=== PATIENT | female | born 1960 | race Caucasian/White ===

== ENCOUNTER → 2017-06-21 | Outpatient (CLI) | payer BC ==
--- NOTE | 2017-06-21 16:13 | MAMMOGRAPHY REPORT ---
BILATERAL DIGITAL SCREENING MAMMOGRAM TOMOSYNTHESIS WITH CAD: 06/21/2017 CLINICAL HISTORY: Routine screening. Patient has no complaints. TECHNIQUE: Breast tomosynthesis in addition to standard 2D mammography was performed. Current study was also evaluated with a Computer Aided Detection (CAD) system. COMPARISON: Comparison is made to exams dated: 06/17/2016 mammogram, 05/07/2015 mammogram, 03/14/2014 ma mmogram, 01/17/2013 mammogram, and 12/25/2011 mammogram - [facility]. BREAST COMPOSITION: There are scattered areas of fibroglandular density in both breasts. FINDINGS: No suspicious masses, calcifications, or areas of architectural distortion are noted in ei ther breast. There has been no significant interval change compared to prior exams. IMPRESSION: ACR BI-RADS CATEGORY 1: NEGATIVE There is no mammographic evidence of malignancy. A 1 year screening mammogram is recommended. The pa tient will receive written notification of the results. Approximately 10% of breast cancers are not detected with mammography. A negative mammographic report should not delay biopsy if a clinically suggestive mass is present. She Fraga M.D. /:06/21/2017 14:36:14 Band Master: Mouna CAMPBELL)(Radha), [facility] letter sent: Normal 1/2 BI-RADS Code: ACR BI-RADS Category 1: Negative
== END | disposition home or self-care (01) ==
LOC: C.MAMM 09:21
PROVIDERS: ATTEND Family Medicine
DX: Z12.31 Encounter for screening mammogram for malignant neoplasm of breast (principal)

== ENCOUNTER → 2018-07-13 | Outpatient (CLI) | payer OTHER ==
--- NOTE | 2018-07-14 15:44 | MAMMOGRAPHY REPORT ---
BILATERAL DIGITAL SCREENING MAMMOGRAM TOMOSYNTHESIS WITH CAD: 07/13/2018 CLINICAL HISTORY: Routine screening. TECHNIQUE: The study was acquired using full field digital technology and interpreted from soft copy. Breast tomosynthesis in addition to standard 2D mammography was performed. Current study was also ev aluated with a Computer Aided Detection (CAD) system. COMPARISON: Comparison is made to exams dated: 06/21/2017 mammogram, 06/17/2016 mammogram, 05/07/2015 ma mmogram, 03/14/2014 mammogram, 01/17/2013 mammogram, and 12/25/2011 mammogram - [facility]. BREAST COMPOSITION: There are scattered areas of fibroglandular density in both breasts. FINDINGS: No suspicious masses, calcifications, or areas of architectural distortion are noted in either breast . There has been no significant interval change compared to prior exams. IMPRESSION: ACR BI-RADS CATEGORY 1: NEGATIVE There is no mammographic evidence of malignancy. A 1 year screening mammogram is recommended.( 019) The patient will receive written notification of the results. Some breast cancers are not detected with mammography. A negative mammographic report should not silvina y biopsy if a clinically suggestive mass is present. She Fraga M.D. ah/:07/13/2018 15:28:26 Verification Manager: RT Anette(Mere)(M), [facility] letter sent: Normal 1/2 BI-RADS Code: ACR BI-RADS Category 1: Negative
== END | disposition home or self-care (01) ==
LOC: C.MAMM 13:35
PROVIDERS: ATTEND Family Medicine
DX: Z12.31 Encounter for screening mammogram for malignant neoplasm of breast (principal)

== ENCOUNTER 2024-11-25 13:40 | Inpatient (IN) ==
--- NOTE | 2024-11-25 14:05 | Emergency Department Note ---
Impression & Plan CHIN (acute kidney injury), Vomiting, Abdominal pain, Abdominal ascites, Pleural effusion, Urinary tract infection ED Provider Note NAME: ZAY RAMEY AGE: 64 SEX: F : 1960 ARRIVES VIA: Walk-In INFORMANT: Patient, ED PROVIDER(S): Brent Nation DO CHIEF COMPLAINT: Abdominal pain HPI: The patient is a 64-year-old female who has a history of stage IV colon cancer. She was seen in our facility recently for similar complaints. She was transferred to [facility] and had multiple surgeries. She also was found to have obstruction of the kidney because of a pelvic mass. This was not something they were able to intervene on. She still has an ostomy. She is still getting chemotherapy. The patient presented to the emergency department today because of abdominal pain and vomiting. She has had decreased output in her ostomy bag. She is also been struggling with her pain medication. She cannot take the tramadol anymore and was switched to oxycodone. She is unsure if this is working appropriately. ROS: See above HPI for pertinent positives & negatives. A total of 10 systems reviewed and were otherwise negative. PAST MEDICAL HISTORY: See Below PAST SURGICAL HISTORY: See Below FAMILY HISTORY: See Below SOCIAL HISTORY: See Below HOME MEDICATIONS: See Below ALLERGIES: See Below VITALS: See Below PHYSICAL EXAMINATION: GENERAL: The patient is awake and alert. The patient is somewhat anxious. EYES: The conjunctivae are clear. The pupils are round and reactive. EARS, NOSE, MOUTH AND THROAT: The nose is without any evidence of any deformity. NECK: The neck is nontender and supple. RESPIRATORY: Normal respiratory effort is noted there is no evidence of wheezing rhonchi or rales CARDIOVASCULAR: Regular rate and rhythm noted there no murmurs rubs or gallops normal S1 normal S2. GASTROINTESTINAL: The abdomen is distended. There is diffuse tenderness to palpation. The ostomy is noted. There is no material in the bag. Postoperative areas are noted. There is no drainage erythema or dehiscence. MUSCULOSKELETAL/EXTREMITIES: There is no evidence of gross deformity full range of motion is noted in the hips and shoulders. SKIN: There is no obvious evidence of any rash. There are no petechiae, pallor or cyanosis noted. NEUROLOGIC: Patient is awake alert and oriented x3 MEDICAL DECISION MAKING: The patient is a 64-year-old female who presented to the emergency department for an evaluation of abdominal pain nausea and vomiting. The patient has a history of metastatic colon cancer. She was recently at [facility] for a debulking surgery. She was doing well up until recently when she started having severe nausea and vomiting. She has had decreased urine output as well as decreased output in her ostomy. She thought she could be obstructed. Physical exam was consistent with significant pain. I discussed the patient's laboratory and radiographic studies with her. She appears to have an elevation in her creatinine compared to baseline. She was treated with multiple IV fluid boluses. I discussed her condition with the on-call [facility] hospitalist. They have agreed to evaluate the patient in the emergency department for further management and disposition. Triage Nursing notes reviewed. Prior medical records reviewed Vital Signs: reviewed and remarkable for no significant abnormalities Differential diagnosis: Etiologies such as appendicitis, diverticulitis, obstruction, inflammatory bowel disease, renal colic, PUD, biliary pathology, pancreatitis, mesenteric ischemia, aortic pathology, infections, genitourinary, UTI, perforated viscus, as well as others were entertained. ER treatment provided: See below Diagnostics interpreted by me: ECG: EKG was obtained in the emergency department. My interpretation is normal sinus rhythm at 94 bpm. There is no ectopy. There is no acute ST segment abnormalities noted. This was compared to a tracing from November 05, 2024. No changes were noted. Cardiac Monitoring: An order was placed for continuous cardiac monitoring. The monitor shows a rate of 94 bpm with sinus rhythm. Laboratory studies: As stated above and show below. Imaging studies: See below. Radiographic imaging was reviewed by myself Consultation(s): Dr. Wilson was notified about the patient. Past Med/Surg History Problem List (Updated 11/25/24 @ 18:05 by Brent Nation DO) Urinary tract infection (Acute) Pleural effusion (Acute) Abdominal ascites (Acute) Abdominal pain (Acute) Vomiting (Acute) CHIN (acute kidney injury) (Acute) Encounter for pre-operative examination Medical History Metastatic colon cancer to liver Colostomy in place Cataracts, bilateral History of kidney stones Diverticulosis DM type 2 (diabetes mellitus, type 2) HLD (hyperlipidemia) HTN (hypertension) Chronic deep vein thrombosis (DVT) "Small" LLE clot on recent doppler by PCP per patient, advised nothing further needed per patient Atrial fibrillation Single episode 08/2023 while hospitalized at [facility] [place] for bowel resection > prescribed Eliquis/Coreg Surgical History Port-A-Cath in place (11/05/23) Insertion of Access Port with Fluoroscopy(Left) - Lynn Licona DO History of lithotripsy x2 H/O colonoscopy Hx of hysterectomy (2020) History of colon surgery Del Rosario's procedure with right salpingo-oophorectomy along with biopsies of the peritoneum,mesentery and liver per Dr. Rubio's note Family History Grandmother Colorectal cancer Father Hypertension Diabetes Social History Smoking Status: Former smoker Tobacco Type: Cigarettes Second Hand Exposure: No; Do You Dip or Chew Tobacco: No; Hx Alcohol Use: No Hx Substance Use: No Preferred Language: Barbadian Communication Ability: Effective [employer] Required: No Beliefs That Will Affect Care: None marital status: Current Living Situation: Spouse current occupational status: retired How many Children do You have: 1 Feels Safe at Home: Yes during the past year weight has: decreased > 10 lbs Assistive Devices: Denture - Upper, Denture - Lower and Glasses Allergies Allergies Allergy/AdvReac Type Severity Reaction Status Date / Time Iodinated Contrast Media Allergy Hives Verified 11/25/24 17:28 Penicillins Allergy Unknown Verified 11/25/24 17:28 povidone-iodine Allergy Hives Verified 11/25/24 17:28 [From Betadine] Home Meds Home Medications Medication Instructions Recorded Confirmed glimepiride 4 mg tablet 4 mg PO QAM 08/30/23 11/25/24 lisinopril 40 mg tablet 40 mg PO DAILY 08/30/23 11/25/24 metformin 1,000 mg tablet 1,000 mg PO BID 08/30/23 11/25/24 simvastatin 40 mg tablet 40 mg PO QPM 08/30/23 11/25/24 carvedilol 6.25 mg tablet 6.25 mg PO BID 11/02/23 11/25/24 apixaban 2.5 mg tablet (Eliquis) 2.5 mg PO BID 11/25/24 11/25/24 ondansetron HCl 8 mg tablet 8 mg PO DAILY PRN Nausea 11/25/24 11/25/24 oxycodone 5 mg tablet 0 mg PO DIRECTED PRN Pain 11/25/24 11/25/24 pioglitazone 30 mg tablet 30 mg PO DAILY 11/25/24 11/25/24 Results & Data (ED) Vital Signs Vital Signs - 24 hr 11/25/24 13:45 11/25/24 13:50 11/25/24 14:48 Temperature 35.4 C L Temperature Source Temporal Artery Scan Pulse Rate 98 H 97 H 102 H Pulse Rate [Right Finger] Pulse Rhythm Regular Regular Pulse Strength Normal Respiratory Rate 20 22 Respiratory Effort / Characteristics Non-Labored Spontaneous Respiratory Depth Normal Respiratory Pattern Regular Blood Pressure 133/79 Blood Pressure [Right Arm] Blood Pressure Mean 97 Blood Pressure Mean [Right Arm] Blood Pressure Position Sitting Pulse Oximetry 98 98 Oxygen Delivery Method Room Air Room Air Sepsis Recent Fever Within 48 Hours No Sepsis New/Unexplained Change in Mental Status No Sepsis Action Taken by Nursing No Action Required 11/25/24 15:08 11/25/24 15:34 11/25/24 16:32 Temperature Temperature Source Pulse Rate Pulse Rate [Right Finger] 92 H 88 94 H Pulse Rhythm Pulse Strength Respiratory Rate 24 16 14 Respiratory Effort / Characteristics Non-Labored Spontaneous Non-Labored Spontaneous Non-Labored Spontaneous Respiratory Depth Normal Normal Normal Respiratory Pattern Regular Regular Regular Blood Pressure Blood Pressure [Right Arm] 120/72 118/62 134/64 Blood Pressure Mean Blood Pressure Mean [Right Arm] 88 80 87 Blood Pressure Position Pulse Oximetry 98 98 98 Oxygen Delivery Method Room Air Room Air Room Air Sepsis Recent Fever Within 48 Hours Sepsis New/Unexplained Change in Mental Status Sepsis Action Taken by Nursing 11/25/24 17:19 Temperature Temperature Source Pulse Rate Pulse Rate [Right Finger] 94 H Pulse Rhythm Pulse Strength Respiratory Rate 16 Respiratory Effort / Characteristics Non-Labored Spontaneous Respiratory Depth Normal Respiratory Pattern Regular Blood Pressure Blood Pressure [Right Arm] 119/69 Blood Pressure Mean Blood Pressure Mean [Right Arm] 85 Blood Pressure Position Pulse Oximetry 97 Oxygen Delivery Method Room Air Sepsis Recent Fever Within 48 Hours Sepsis New/Unexplained Change in Mental Status Sepsis Action Taken by Prison Medications Current Medication List: was personally reviewed by me Laboratory Data Attestation: I reviewed the patient's lab results. 11/25/24 14:20 11/25/24 14:20 Lab Results 11/25/24 11/25/24 Range/Units 14:20 17:28 WBC 15.14 H (4.8-10.8) K/ul RBC 3.08 L (4.20-5.40) M/uL Hgb 8.8 L (12.0-16.0) g/dl Hct 27.0 L (37.0-47.0) % MCV 87.7 (80.0-100.0) fL MCH 28.6 (25.0-34.0) pg MCHC 32.6 (32.0-36.0) g/dL RDW Std Deviation 45.1 (36.4-46.3) fL RDW Coeff of Jennifer 14.1 (11.5-14.5) % Plt Count 349 (130-400) K/uL MPV 9.6 (9.4-12.4) fL Immature Gran % (Auto) 1.0 % Neut % (Auto) 87.2 % Lymph % (Auto) 6.7 % [place] % (Auto) 4.8 % Eos % (Auto) 0.1 % Baso % (Auto) 0.2 % Neut # (Auto) 13.20 H (1.40-6.50) K/uL Lymph # (Auto) 1.02 L (1.20-3.40) K/uL [place] # (Auto) 0.72 H (0.11-0.59) K/uL Eos # (Auto) 0.02 (0.00-0.50) K/uL Baso # (Auto) 0.03 (0.00-0.20) K/uL Immature Gran # (Auto) 0.15 (0.01-0.20) K/uL PT 13.2 H (9.0-12.0) Seconds INR 1.2 H (0.9-1.1) APTT 30 (21-31) Seconds PTT Ratio 1.1 Sodium 131 L (136-145) mmol/L Potassium 5.4 H (3.5-5.1) mmol/L Chloride 97 L (98-107) mmol/L Carbon Dioxide 18 L (21-32) mmol/L Anion Gap 16 H (3-11) BUN 53 H (6-23) mg/dl Creatinine 2.51 H (0.6-1.2) mg/dl Est Cr Clr Drug Dosing 21.1 ml/min eGFR 20.59 BUN/Creatinine Ratio 21.1 H (10-20) Glucose 193 H (70-99(Fasting)) mg/dl Calcium 9.2 (8.6-10.3) mg/dl Total Bilirubin 0.3 (0.2-1.0) mg/dl AST 18 (13-39) U/L ALT 8 (7-52) U/L Alkaline Phosphatase 73 (34-104) U/L Troponin I High Sens 5.8 (0-14) pg/ml Total Protein 6.8 (6.0-8.3) gm/dl Albumin 3.2 L (3.4-5.0) gm/dl Globulin 3.6 (2.5-4.0) gm/dl Albumin/Globulin Ratio 0.9 (0.9-2) Lipase 18 (11-82) U/L Urine Color Yellow Urine Appearance Cloudy A (Clear) Urine pH 5.0 (4.5-7.5) Ur Specific Frederick 1.023 (1.000-1.030) Urine Protein 1+ H (Negative) Urine Glucose (UA) Negative (Negative) Urine Ketones 1+ H (Negative) Urine Blood Negative (Negative) Urine Nitrite Negative (Negative) Urine Bilirubin Negative (Negative) Urine Urobilinogen Negative (Negative) Ur Leukocyte Esterase 2+ H (Negative) Urine WBC (Auto) >50 H (0-5) /hpf Urine RBC (Auto) 0-2 (0-2) /hpf U Hyaline Cast (Auto) >20 H (0-2) /lpf U Epithel Cells (Auto) 11-20 H (0-2) /hpf Urine Bacteria (Auto) 4+ H (None Seen) Ur Renal Epithelial Cell Present A (None Presnt) /lpf Administered Medications Discontinued Medications Diphenhydramine HCl (Diphenhydramine 50 Mg/Ml Vial) 50 mg IV NOW STA Stop: 11/25/24 14:03 Last Admin: 11/25/24 14:27 Dose: 50 mg Documented By: SRL Sodium Chloride (Nss) 1,000 mls @ 999 mls/hr IV .Q1H1M ONE Stop: 11/25/24 14:50 Last Infusion: 11/25/24 15:30 Dose: Infused Documented By: NRRashel Admin: 11/25/24 14:27 Dose: 999 mls/hr Documented By: PEGGY Sodium Chloride (Nss) 1,000 mls @ 999 mls/hr IV .Q1H1M ONE Stop: 11/25/24 16:00 Last Infusion: 11/25/24 16:47 Dose: Infused Documented By: Admin: 11/25/24 15:35 Dose: 999 mls/hr Documented By: NRB Methylprednisolone (Methylprednisolone 125 Mg/2 Ml Vial) 40 mg IV NOW STA Stop: 11/25/24 14:03 Last Admin: 11/25/24 14:27 Dose: 40 mg Documented By: SRL Ondansetron HCl (Ondansetron Inj 2 Mg/Ml 2 Ml Vial) 4 mg IV NOW STA Stop: 11/25/24 13:51 Last Admin: 11/25/24 14:27 Dose: 4 mg Documented By: PEGGY Imaging Data Attestation: I personally reviewed and interpreted this imaging study as follows: My Impression: View chest x-ray was obtained in the emergency department. My interpretation is left-sided pleural effusion, final report below. CT of the abdomen and pelvis was obtained. My interpretation is no free air or signs of definite bowel obstruction, there was ascites noted, final report below. Radiologist's Impression: Chest X-Ray 11/25/24 13:50 EXAM: Chest x-ray one-view portable CLINICAL HISTORY: Vomiting PRIORS: Chest CT 11/14/2024 TECHNIQUE: Upright frontal view chest portable FINDINGS: A left Mediport catheter is present. No pneumothorax. A moderate left pleural effusion is present, appearing in the interval. Heart size is normal. Trachea is patent. Osseous structures demonstrate no acute abnormality. No radiopaque foreign body. IMPRESSION: Moderate left pleural effusion, appearing in the interval. Electronically signed by [place]ia Pardo 11-25-2024 3:24 PM Abdomen/Pelvis CT 11/25/24 15:00 EXAMINATION: Abdomen and pelvis CT without CLINICAL HISTORY: None supplied PRIORS: 11/14/2024 TECHNIQUE: Contiguous axial images were obtained through the abdomen and pelvis without the use of intravenous contrast. Sagittal and coronal reformations are supplied. FINDINGS: Small left pleural effusion is present, appearing in the interval. Evaluation of solid organs is limited without the use of intravenous contrast. A large amount of ascites is present throughout the abdomen, progressed in the interval. The gallbladder is mildly distended, appearing in the interval. Small appearance of the liver noted. The stomach is under distended and contains fluid. The spleen, pancreas and adrenals are morphologically unremarkable. Oral contrast present in the ascending and transverse colon Without dilatation. A left ostomy is noted, unchanged. No dilated loops of bowel. Heterogeneous soft tissue attenuation throughout the mesentery of the anterior abdominal wall, likely metastatic disease/omental caking, unchanged allowing for differences in technique. A pelvic mass is present or uterus, image 69, series 2. Urinary bladder distends normally. Pelvic adenopathy or soft tissue nodules present adjacent to this, unchanged. Surgical clips in the right Brenden pelvis with adjacent soft tissue, unchanged. Anastomotic suture involving the small bowel present in the mid anterior abdomen, unchanged. Moderate right hydronephrosis and hydroureter is present, unchanged with likely obstructed right distal ureter. Retroperitoneal adenopathy present, unchanged. Advanced atherosclerotic disease of the aorta noted. Left kidney unremarkable. In bone windows, heterogeneous appearance of the osseous structures without a high-grade compression fracture. Moderate facet hypertrophic changes at L5-S1. IMPRESSION: 1. CT features favoring metastatic disease within the abdomen and pelvis with unchanged omental implants and adenopathy. 2. Increased volume of ascites on today's examination. 3. Right hydronephrosis and hydroureter, unchanged, favoring distal obstruction. 4. Postsurgical change of loops of bowel with no dilated loops of bowel on the current examination. 5. Distended gallbladder, appearing in the interval. 6. Small right and moderate left pleural effusions, appearing in the interval. ACT 112: Positive. There are findings on this examination that require communication between the performing entity and the patient following Patient Test Result Information Act ([place] ACT 112) guidelines. Electronically signed by [place]ia Pardo 11-25-2024 4:28 PM Discharge Plan Visit Data Chief Complaint: Illness Stated Complaint: STG 4 COLON CANCER, VOMITING, NAUSEA, CONSTIPATION ED Provider: Brent Nation Discharge Problem: CHIN (acute kidney injury), Vomiting, Abdominal pain, Abdominal ascites, Pleural effusion, Urinary tract infection Patient Disposition: Being Evaluated by Hospitalist Forms Stand Alone Forms: My [facility] Prescriptions Prescriptions: No Action carvedilol 6.25 mg tablet 6.25 mg PO BID Rx Instructions: must administer with a meal/food simvastatin 40 mg tablet 40 mg PO QPM metformin 1,000 mg Tablet 1,000 mg PO BID glimepiride 4 mg Tablet 4 mg PO QAM Rx Instructions: administer with breakfast lisinopril 40 mg Tablet 40 mg PO DAILY ondansetron HCl 8 mg tablet 8 mg PO DAILY PRN (Reason: Nausea) pioglitazone 30 mg tablet 30 mg PO DAILY Eliquis 2.5 mg tablet 2.5 mg PO BID oxycodone 5 mg tablet 0 mg PO DIRECTED PRN (Reason: Pain) Rx Instructions: pt states she feels like the oxycodone is part of her feeling ill. She used to take tramadol with a Tylenol until [facility] prescribed oxy. Referrals Referrals: Jese William [Primary Care Provider] - Discharge Problem: Vomiting Qualifiers: Vomiting type: unspecified Nausea presence: with nausea Qualified Code(s): R 11.2 - Nausea with vomiting, unspecified Abdominal pain Qualifiers: Abdominal location: generalized Qualified Code(s): R10.84 - Generalized abdominal pain Abdominal ascites Qualifiers: Ascites type: malignant Qualified Code(s): R18.0 - Malignant ascites Urinary tract infection Qualifiers: Urinary tract infection type: site unspecified Hematuria presence: without hematuria Qualified Code(s): N39.0 - Urinary tract infection, site not specified
[2024-11-25] MEDS: SODIUM CHLORIDE 0.9% 1,000 ML IV ONE ×2 (14:27→15:35)
[2024-11-25] MEDS: diphenhydrAMINE 50 MG/ML VIAL IV STA (14:27)
[2024-11-25] MEDS: methylPREDNISolone 125 MG/2 ML VIAL IV STA (14:27)
[2024-11-25] MEDS: ONDANSETRON INJ 2 MG/ML 2 ML VIAL IV STA (14:27)
[2024-11-25 14:40] LABS: Basophils # (auto) 0.03 K/uL (0.00-0.20); Basophils % (auto) 0.2 %; Eosinophils # (auto) 0.02 K/uL (0.00-0.50); Eosinophils % (auto) 0.1 %; Hemoglobin 8.8 g/dl (12.0-16.0); Immature Granulocytes # (auto) 0.15 K/uL (0.01-0.20); Lymphocytes # (auto) 1.02 K/uL (1.20-3.40); Lymphocytes % (auto) 6.7 %; Mean Corpuscular Hemoglobin 28.6 pg (25.0-34.0); Mean Corpuscular Hgb Conc 32.6 g/dL (32.0-36.0); Mean Corpuscular Volume 87.7 fL (80.0-100.0); Mean Platelet Volume 9.6 fL (9.4-12.4); Monocytes # (auto) 0.72 K/uL (0.11-0.59); Monocytes % (auto) 4.8 %; Neutrophils % (auto) 87.2 %; Platelet Count 349 K/uL (130-400); RDW Coefficient of Variation 14.1 % (11.5-14.5); RDW Standard Deviation 45.1 fL (36.4-46.3); Red Blood Count 3.08 M/uL (4.20-5.40); White Blood Count 15.14 K/ul (4.8-10.8)
[2024-11-25 14:52] LABS: Albumin Globulin Ratio 0.9 (0.9-2); Albumin Level 3.2 gm/dl (3.4-5.0); BUN Creatinine Ratio 21.1 (10-20); Bilirubin,Total 0.3 mg/dl (0.2-1.0); Calcium 9.2 mg/dl (8.6-10.3); Creatinine Clr Calc Pharmacy 21.1 ml/min; Globulin 3.6 gm/dl (2.5-4.0); Potassium 5.4 mmol/L (3.5-5.1); Total Protein 6.8 gm/dl (6.0-8.3)
[2024-11-25 14:57] LABS: Troponin I High Sensitivity 5.8 pg/ml (0-14)
[2024-11-25 15:09] LABS: INR 1.2 (0.9-1.1); Partial Thromboplastin Ratio 1.1; Partial Thromboplastin Time 30 Seconds (21-31); Prothrombin Time 13.2 Seconds (9.0-12.0)
--- NOTE | 2024-11-25 15:24 | XRay Report ---
EXAM: Chest x-ray one-view portable CLINICAL HISTORY: Vomiting PRIORS: Chest CT 11/14/2024 TECHNIQUE: Upright frontal view chest portable FINDINGS: A left Mediport catheter is present. No pneumothorax. A moderate left pleural effusion is present, appearing in the interval. Heart size is normal. Trachea is patent. Osseous structures demonstrate no acute abnormality. No radiopaque foreign body. IMPRESSION: Moderate left pleural effusion, appearing in the interval. Electronically signed by Albania Pardo 11-25-2024 3:24 PM
--- NOTE | 2024-11-25 16:28 | CT Scan Report ---
EXAMINATION: Abdomen and pelvis CT without CLINICAL HISTORY: None supplied PRIORS: 11/14/2024 TECHNIQUE: Contiguous axial images were obtained through the abdomen and pelvis without the use of intravenous contrast. Sagittal and coronal reformations are supplied. FINDINGS: Small left pleural effusion is present, appearing in the interval. Evaluation of solid organs is limited without the use of intravenous contrast. A large amount of ascites is present throughout the abdomen, progressed in the interval. The gallbladder is mildly distended, appearing in the interval. Small appearance of the liver noted. The stomach is under distended and contains fluid. The spleen, pancreas and adrenals are morphologically unremarkable. Oral contrast present in the ascending and transverse colon Without dilatation. A left ostomy is noted, unchanged. No dilated loops of bowel. Heterogeneous soft tissue attenuation throughout the mesentery of the anterior abdominal wall, likely metastatic disease/omental caking, unchanged allowing for differences in technique. A pelvic mass is present or uterus, image 69, series 2. Urinary bladder distends normally. Pelvic adenopathy or soft tissue nodules present adjacent to this, unchanged. Surgical clips in the right Brenden pelvis with adjacent soft tissue, unchanged. Anastomotic suture involving the small bowel present in the mid anterior abdomen, unchanged. Moderate right hydronephrosis and hydroureter is present, unchanged with likely obstructed right distal ureter. Retroperitoneal adenopathy present, unchanged. Advanced atherosclerotic disease of the aorta noted. Left kidney unremarkable. In bone windows, heterogeneous appearance of the osseous structures without a high-grade compression fracture. Moderate facet hypertrophic changes at L5-S1. IMPRESSION: 1. CT features favoring metastatic disease within the abdomen and pelvis with unchanged omental implants and adenopathy. 2. Increased volume of ascites on today's examination. 3. Right hydronephrosis and hydroureter, unchanged, favoring distal obstruction. 4. Postsurgical change of loops of bowel with no dilated loops of bowel on the current examination. 5. Distended gallbladder, appearing in the interval. 6. Small right and moderate left pleural effusions, appearing in the interval. ACT 112: Positive. There are findings on this examination that require communication between the performing entity and the patient following Patient Test Result Information Act ([place] ACT 112) guidelines. Electronically signed by Albania Pardo 11-25-2024 4:28 PM
--- NOTE | 2024-11-25 16:51 | Electrocardiogram Report ---
Test Reason : Blood Pressure : */* mmHG Vent. Rate : 94 BPM Atrial Rate : 94 BPM P-R Int : 152 ms QRS Dur : 76 ms QT Int : 330 ms P-R-T Axes : 38 -11 26 degrees QTcB Int : 412 ms Normal sinus rhythm Possible Anterior infarct , age undetermined Abnormal ECG When compared with ECG of 05-Nov-2023 07:49, T wave amplitude has decreased in Anterolateral leads Poor R wave progression, consider anterior [place] vs. lead placement vs. LVH now present Confirmed by Sonya Campbell ([id number]) on 11/25/2024 4:51:00 PM Referred By: Confirmed By: Sonya Campbell
[2024-11-25 17:45] LABS: Appearance Urine Cloudy (Clear); Bacteria Urine Automated 4+ (None Seen); Bilirubin Urine Negative (Negative); Blood Urine Negative (Negative); Cast Urine Automated >20 /lpf (0-2); Color Urine Yellow; Glucose Urine UA Negative (Negative); Ketones Urine 1+ (Negative); Leukocyte Esterase Urine 2+ (Negative); Nitrite Urine Negative (Negative); Protein Urine 1+ (Negative); RBC Urine Automated 0-2 /hpf (0-2); Renal Epithelial Cells Urine Present /lpf (None Presnt); Specific Gravity Urine 1.023 (1.000-1.030); Urobilinogen Urine Negative (Negative); WBC Urine Automated >50 /hpf (0-5)
--- NOTE | 2024-11-25 18:04 | History & Physical Report ---
Date of Service November 25, 2024 Assessment & Plan (1) Abdominal pain: (2) CHIN (acute kidney injury): (3) Urinary tract infection: (4) Abdominal ascites: (5) Colon cancer metastasized to multiple sites: Plan This patient is a 64-year-old female with a history of metastatic stage IV colon cancer s/p colectomy and colostomy and 6 months of chemotherapy earlier this year, DM 2, HTN, HL, kidney stones, DVT on Eliquis, lone atrial fibrillation who presents to the ER with 2 weeks of progressively worsening abdominal pain, nausea/vomiting, and decreased output in her colostomy bag and urine output. Found to have increased amount of ascites, carcinomatosis and omental caking of the anterior abdominal wall, pelvic mass with right hydronephrosis and hydroureter, development of small pleural effusions, and CHIN with UTI. #Abdominal pain/N/V/metastatic colon cancer Abdominal pain likely secondary to carcinomatosis and worsening likely malignant ascites. This has been ongoing for 2 months since her laparotomy the end of August at [facility] for aborted reversal of colostomy after pelvic mass was found. She has developed omental caking and carcinomatosis as well as mediastinal lymphadenopathy, ascites, and pleural effusions on CT scan since that time and is about to start a different type of chemotherapy next week. The N/V is almost certainly secondary to a side effect of oxycodone. She has no evidence of bowel obstruction on her CT scan -Admit to medical/surgical floor for pain control, IV fluid hydration, and slow advancement of diet -Discontinue oxycodone which is causing N/V and resume previous tramadol which worked well for her and did not cause side effects. Will also give acetaminophen as needed for pain -Start Protonix and Maalox as needed for likely esophagitis from excessive vomiting -Okay to start clear liquids diet now and advance as tolerated -Consult her oncologist as she had a lot of questions about her prognosis as she was unaware of the findings of the recent CT abdomen/pelvis until now -Could consider paracentesis but her abdomen does not seem excessively distended and would need to hold her Eliquis to do so for at least several days-defer to oncology if he would like this done for further staging purposes -Also consider palliative medicine consultation for symptom and pain management in the setting of metastatic colon cancer #CHIN/hyperkalemia/anion gap metabolic acidosis Creatinine is up to 2.51 from baseline of 0.6 from 04/2024. This is almost certainly secondary to prerenal/dehydration from 2 weeks of nausea/vomiting, but also some aspect likely secondary to blockage of right ureter and ongoing right hydronephrosis. UA is consistent with likely urinary tract infection. She also takes lisinopril at home. Potassium is mildly elevated at 5.4 -Repeat BMP this evening and then again in the morning to ensure potassium levels are improving after receiving IV fluid hydration -Continue IVF's at 125 mL/hour of normal saline for 24 hours -Starting insulin which will also help reduce potassium level -Doubtful that urology would do anything interventional for the right sided hydronephrosis but could consider urology consultation -Hold home lisinopril, metformin #UTI UA abnormal consistent with UTI and she has complained of dysuria. With leukocytosis of 15K which could be from UTI versus stress response to nausea/vomiting -Continue ceftriaxone daily -Follow urine culture final result #Anemia Hemoglobin low at 8.8, MCV 87. Baseline hemoglobin 9.0 from 6 months ago and she did recently have surgery 2 months ago which likely had some blood loss No bleeding from anywhere that she has noticed Most likely anemia of chronic disease, but given poor nutritional status, need to assess for nutritional deficiencies -Check B12, folate, iron panel, ferritin, TSH in the a.m. and replace deficiencies as needed -Follow CBC #DM2 No hemoglobin A1c in our system. She is on multiple oral medications at home -Hold home metformin, glimepiride, pioglitazone -Start NovoLog supplemental insulin here and add Lantus if needed for hyperglycemia #HTN/HL Blood pressures here are controlled -Holding home lisinopril for CHIN -Okay to continue simvastatin DVT prophylaxis-with a history of DVT and has ongoing metastatic cancer-continue home Eliquis 2.5 Mg p.o. twice daily Disposition-admit to medical/surgical unit. Discussed all care with the at the bedside on the day of admission History of Present Illness Chief Complaint: Abdominal pain Primary Care Provider: Jese William This patient is a 64-year-old female with a history of metastatic stage IV colon cancer s/p colectomy and colostomy and 6 months of chemotherapy earlier this year, DM 2, HTN, HL, kidney stones, DVT on Eliquis, lone atrial fibrillation who presents to the ER with 2 weeks of progressively worsening abdominal pain, nausea/vomiting, and decreased output in her colostomy bag and urine output. She was worried that she had a bowel obstruction. She completed chemotherapy in 04/2024 and had a normal PET/CT scan at that time. At the end of August 2024 she had a laparotomy to have a colostomy reversal and unfortunately a pelvic mass was found at that time indicating recurrence of her colon cancer. She has been having worsening mostly right-sided abdominal pain since then which was being helped with Tylenol and tramadol, but her oncologist switched her to oxycodone about 2 weeks ago. Since taking oxycodone, she has been vomiting almost every day. She denies fevers or chills. She is getting progressively weaker as well. Denies blood in her stool or vomit. She is also having dysuria but attributed it to having more concentrated urine. She had a CT of the chest/abdomen/pelvis on 11/14 which unfortunately did show mediastinal lymphadenopathy, pleural effusions, ascites, carcinomatosis of the abdomen, and bilateral pelvic masses with right sided hydronephrosis and hydroureter. The patient and her were not yet aware of the results of the CT scan at the time of admission and I did review them with her. She was set to start a new chemotherapy on 11/28/2024 at the cancer center with Dr. Liz. CT A/P here shows increase in the amount of large ascites since 11/14, unchanged omental caking in the anterior abdominal wall with carcinomatosis, a pelvic mass again with impingement on the distal right ureter with obstruction causing moderate right hydronephrosis and hydroureter, retroperitoneal lymphadenopathy, but no bowel obstruction. Does have distended gallbladder. She was also noted to have bilateral pleural effusions left greater than right but was not in respiratory distress and pulse ox was 97% on room air. She was afebrile as well and denies SOB She also had an CHIN with mild hyperkalemia and an anion gap metabolic acidosis. Her UA was consistent with a UTI. In the ER, she was treated with ceftriaxone for the UTI as well as 2 L of normal saline. She will be admitted for acute kidney injury, N/V secondary to side effect of oxycodone, and abdominal pain likely secondary to metastatic disease and development of large malignant ascites. Allergies Allergy/AdvReac Type Severity Reaction Status Date / Time Iodinated Contrast Media Allergy Hives Verified 11/25/24 17:28 Penicillins Allergy Unknown Verified 11/25/24 17:28 povidone-iodine Allergy Hives Verified 11/25/24 17:28 [From Betadine] Home Medications Medication Instructions Recorded Confirmed Type glimepiride 4 mg tablet 4 mg PO QAM 08/30/23 11/25/24 History lisinopril 40 mg tablet 40 mg PO DAILY 08/30/23 11/25/24 History metformin 1,000 mg tablet 1,000 mg PO BID 08/30/23 11/25/24 History simvastatin 40 mg tablet 40 mg PO QPM 08/30/23 11/25/24 History carvedilol 6.25 mg tablet 6.25 mg PO BID 11/02/23 11/25/24 History apixaban 2.5 mg tablet (Eliquis) 2.5 mg PO BID 11/25/24 11/25/24 History ondansetron HCl 8 mg tablet 8 mg PO DAILY PRN Nausea 11/25/24 11/25/24 History oxycodone 5 mg tablet 0 mg PO DIRECTED PRN Pain 11/25/24 11/25/24 History pioglitazone 30 mg tablet 30 mg PO DAILY 11/25/24 11/25/24 History Past Med/Surg History Problem List Colon cancer metastasized to multiple sites Urinary tract infection (Acute) Pleural effusion (Acute) Abdominal ascites (Acute) Abdominal pain (Acute) Vomiting (Acute) CHIN (acute kidney injury) (Acute) Encounter for pre-operative examination Medical History Metastatic colon cancer to liver Colostomy in place Cataracts, bilateral History of kidney stones Diverticulosis DM type 2 (diabetes mellitus, type 2) HLD (hyperlipidemia) HTN (hypertension) Chronic deep vein thrombosis (DVT) "Small" LLE clot on recent doppler by PCP per patient, advised nothing further needed per patient Atrial fibrillation Single [place] 08[place]2023 [place] [facility] [place] prescribed Eliquis/Coreg Surgical History Port-A-Cath in place (11/05/23) Insertion of Access Port with Fluoroscopy(Left) - Lynn Licona DO History of lithotripsy x2 H/O colonoscopy Hx of hysterectomy (2020) History of colon surgery Del Rosario's procedure with right salpingo-oophorectomy along with biopsies of the peritoneum,mesentery and liver per Dr. Rubio's note Family History Grandmother Colorectal cancer Father Hypertension Diabetes Social History Smoking Status: Former smoker Tobacco Type: Cigarettes Second Hand Exposure: No; Do You Dip or Chew Tobacco: No; Hx Alcohol Use: No Hx Substance Use: No Preferred Language: Yoruba Communication Ability: Effective Trust Operations Assistant Required: No Beliefs That Will Affect Care: None marital status: Current Living Situation: Spouse current occupational status: retired How many Children do You have: 1 Feels Safe at Home: Yes during the past year weight has: decreased > 10 lbs Assistive Devices: Denture - Upper, Denture - Lower and Glasses Review of Systems Review of Systems: All systems reviewed & are unremarkable except as noted in HPI & below She is also complaining of burning in her throat and chest with vomiting acidic rylan kathy like vomit Physical Exam Constitutional: WD/WN, vitals as above Eyes: PERRL, conjunctivae normal, anicteric sclerae ENMT: external ear and nose normal, oropharynx normal (Except dry tongue and mucous membranes) Neck: trachea midline, no thyromegaly Respiratory: normal respiratory effort; no cough Auscultation: lungs clear to auscultation bilaterally and + diminished lung sounds (Bibasilar) Cardiovascular: RRR, no murmur, no edema Chest (Breasts): Chest: normal inspection of chest Gastrointestinal (Abdomen): Inspection/Auscultation: normal bowel sounds; + abdomen abnormal to inspection (Midline laparotomy incision scar well-healed, left-sided colostomy ) Percussion/Palpation: + abdomen tender (Mild in epigastric and right side without guarding or rebound) and abdomen soft; no guarding and abdomen not rigid Musculoskeletal: Extremities: extremities normal to inspection; no cyanosis and no clubbing Skin: no rashes, warm and dry Neurologic: moves all extremities and awake; no focal motor deficits Psychiatric: A+Ox3, euthymic affect Lymphatic: no lymphedema Results & Data Results & Data Vital Signs (Past 12 Hours) Vital Signs Temp Pulse Pulse Resp BP BP Pulse Ox 11/25/24 17:19 94 H 16 119/69 97 11/25/24 16:32 94 H 14 134/64 98 11/25/24 15:34 88 16 118/62 98 11/25/24 15:08 92 H 24 120/72 98 11/25/24 14:48 102 H 11/25/24 13:50 97 H 22 98 11/25/24 13:45 35.4 C L 98 H 20 133/79 98 O2 Del Method 11/25/24 17:19 Room Air 11/25/24 16:32 Room Air 11/25/24 15:34 Room Air 11/25/24 15:08 Room Air 11/25/24 14:48 11/25/24 13:50 Room Air 11/25/24 13:45 Room Air Laboratory Results CBC, coags, BMP, LFTs, lipase, UA reviewed Diagnostic Findings CT A/P, CXR reviewed ECG Additional Comments: ECG on 11/25/2024 at 1405 with normal sinus rhythm, rate 94, no acute ischemic changes Code Status & VTE Plan Code Status DNR/DNI VTE Prophylaxis Plan VTE Prophylaxis will be ordered: Yes PG Care Time/CCT Total # of Minutes Spent Total Time Spent with Patient: Total time spent is greater than 50% in coordination of care (as documented) at patient's floor/unit and/or counseling patient: Coding Level of Care Code 56870 INT INP/OBS CARE 3/75MIN Diagnoses Abdominal pain R10.84 Abdominal location: generalized CHIN (acute kidney injury) N17.9 Urinary tract infection N39.0 Hematuria presence: without hematuria Urinary tract infection type: site unspecified Abdominal ascites R18.0 Ascites type: malignant Colon cancer metastasized to multiple sites C18.9 (1) Abdominal pain Abdominal location: generalized Qualified Code(s): R10.84 - Generalized abdominal pain (3) Urinary tract infection Hematuria presence: without hematuria Urinary tract infection type: site unspecified Qualified Code(s): N39.0 - Urinary tract infection, site not specified (4) Abdominal ascites Ascites type: malignant Qualified Code(s): R18.0 - Malignant ascites
[2024-11-25] MEDS: cefTRIAXone SODIUM 2,000 MG/50 ML BAG IV STA (18:08)
[2024-11-25 20:23] LABS: BUN Creatinine Ratio 23.5 (10-20); Calcium 8.5 mg/dl (8.6-10.3); Potassium 5.9 mmol/L (3.5-5.1)
--- NOTE | 2024-11-25 20:38 | Communication Note ---
Date of Service: November 25, 2024 Review of repeat BMP shows worsening hyperkalemia with potassium up to 5.9. Worsening metabolic acidosis with serum bicarbonate down to 15, but creatinine is down slightly to 2.3. Most likely this is secondary to acute kidney injury. She could very well have an elevated lactate due to extensive metastatic disease, but she is perfusing well and has normal blood pressure. Will give 10 units of regular IV insulin +1 amp of D50, calcium gluconate 1000 mg IV x 1 now Plan to repeat BMP at 2300 Will sign out to night resident hospitalist
[2024-11-25] MEDS: DEXTROSE 50% 50 ML SYRINGE IV STA (20:46)
[2024-11-25] MEDS: NovoLIN-R INSULIN PER UNIT CHARGE IV STA (20:48)
[2024-11-25] MEDS: CALCIUM GLUCONATE 1,000 MG/60 ML BAG IV STA (20:55)
[2024-11-25] MEDS ORDERED: GLUCOSE 10 TAB/TUBE PO PRN (21:43)
[2024-11-25] MEDS ORDERED: GLUCOSE 40% GEL 15 GM TUBE PO PRN (21:43)
[2024-11-25] MEDS ORDERED: ACETAMINOPHEN 325 MG TAB PO PRN (21:43)
[2024-11-25] MEDS ORDERED: GLUCAGON FOR INJ 1 MG VIAL SQ PRN (21:43)
[2024-11-25] MEDS ORDERED: DEXTROSE 50% 50 ML SYRINGE IV PRN (21:43)
[2024-11-25] MEDS ORDERED: CARBOHYDRATES FOR HYPOGLYCEMIA PO PRN (21:43)
[2024-11-25] MEDS ORDERED: ONDANSETRON INJ 2 MG/ML 2 ML VIAL IV PRN (21:43)
[2024-11-25] MEDS ORDERED: ALUMINUM/MAGNESIUM SUSP 30 ML UDC PO PRN (21:43)
[2024-11-25] MEDS: INSULIN ASPART PER UNIT CHARGE SC SCH (22:36)
[2024-11-25] MEDS: carvediloL 6.25 MG TAB PO SCH (22:37)
[2024-11-25] MEDS: PANTOprazole 40 MG TAB PO SCH (22:37)
[2024-11-25] MEDS: SODIUM CHLORIDE 0.9% 1,000 ML IV SCH (22:38)
[2024-11-25] MEDS: APIXABAN 2.5 MG TAB PO SCH (22:38)
[2024-11-25] MEDS: SIMVASTATIN 40 MG TAB PO SCH (22:38)
[2024-11-25 23:35] LABS: BUN Creatinine Ratio 23.2 (10-20); Calcium 9.3 mg/dl (8.6-10.3); Creatinine Clr Calc Pharmacy 22.7 ml/min; Potassium 5.1 mmol/L (3.5-5.1)
[2024-11-26 06:20] LABS: Basophils # (auto) 0.03 K/uL (0.00-0.20); Basophils % (auto) 0.2 %; Hematocrit (blood only) 23.2 % (37.0-47.0); Hemoglobin 7.4 g/dl (12.0-16.0); Immature Granulocytes # (auto) 0.26 K/uL (0.01-0.20); Immature Granulocytes % (auto) 1.6 %; Lymphocytes # (auto) 0.87 K/uL (1.20-3.40); Lymphocytes % (auto) 5.3 %; Mean Corpuscular Hemoglobin 27.8 pg (25.0-34.0); Mean Corpuscular Hgb Conc 31.9 g/dL (32.0-36.0); Mean Corpuscular Volume 87.2 fL (80.0-100.0); Mean Platelet Volume 9.5 fL (9.4-12.4); Monocytes # (auto) 0.76 K/uL (0.11-0.59); Monocytes % (auto) 4.7 %; Neutrophils % (auto) 88.2 %; Platelet Count 315 K/uL (130-400); RDW Coefficient of Variation 14.3 % (11.5-14.5); RDW Standard Deviation 45.5 fL (36.4-46.3); Red Blood Count 2.66 M/uL (4.20-5.40); White Blood Count 16.32 K/ul (4.8-10.8)
[2024-11-26 06:35] LABS: BUN Creatinine Ratio 25.1 (10-20); Calcium 8.5 mg/dl (8.6-10.3); Magnesium 1.3 mg/dl (1.7-2.4); Potassium 5.3 mmol/L (3.5-5.1)
[2024-11-26 06:41] LABS: RBC Morphology Unremarkable
[2024-11-26 06:49] LABS: Thyroid Stimulating Hormone 0.565 uIu/ml (0.300-4.500)
[2024-11-26 06:55] LABS: Ferritin 122.1 ng/ml (8-388)
[2024-11-26 07:01] LABS: Folate (Folic Acid),Ser orPlas > 22.30 ng/ml (>5.38)
[2024-11-26 07:02] LABS: Vitamin B12 954 pg/ml (180-914)
[2024-11-26 07:18] LABS: Estimated Average Glucose 143 mg/dl; Hemoglobin A1C 6.6 % (4.5-5.6)
[2024-11-26] MEDS: IRON SUCROSE 300 MG in SODIUM CHLORIDE 0.9% 250 ML IV ONE (08:29)
--- NOTE | 2024-11-26 10:36 | Hospitalist Progress Note ---
Date of Service November 26, 2024 Assessment & Plan (1) Abdominal pain: Plan: Present on admission. Appeared to be due to underlying colon cancer. She states her abdominal pain has now resolved. (2) CHIN (acute kidney injury): Plan: Improving with IV fluids. Creatinine 2.5 on admission and now down to 2.0. Monitor intake and output. Serial labs. Lisinopril has been discontinued (3) Urinary tract infection: Plan: Suspected on admission. Continue Rocephin, day 2. Await urine culture results (4) Abdominal ascites: Plan: Appears to be malignant. Oncology consultation requested. Known history of colon cancer (5) Hyperkalemia: Plan: Improving with IV fluids. Serial labs. Lisinopril has been discontinued (6) Iron deficiency anemia: Plan: No overt GI bleeding seen. Parenteral iron replacement while hospitalized. Start oral iron replacement at discharge Plan Hopeful discharge to home tomorrow, November 27 Admission and Anticipated Discharge Date Admission Date: November 25, 2024 Subjective Alert and oriented. She states she is feeling better. Nausea has resolved and she is not complaining of any current pain. Nausea may have been caused by oxycodone. Iron deficiency noted. Parenteral iron replacement has been started. Magnesium replacement ordered for magnesium 1.3. Rocephin day 2 for apparent UTI. Urine culture results pending. Potassium is down to 5.3 from 5.9. Will follow. Lisinopril has been discontinued. Review of Systems 2 Review of Systems: Constitutionalno fever or chills ENTno blurred vision, no double vision, no epistaxis, no sore throat Respiratoryno cough, no wheezing, no shortness of breath Cardiacno palpitations, no chest pain, no syncope GInausea has resolved. She denies melena or hematochezia GUno urinary retention, no urinary incontinence, no dysuria, no hematuria Musculoskeletalno joint pain, no muscle tenderness Skinno bruising, no rashes, no pruritus Neurono isolated weakness, no paresthesia, no weakness Psychno depression, no anxiety Physical Exam 2 Physical Exam: General-alert and oriented x3, no fever, no chills HEENT-head atraumatic and normocephalic, pupils equal and reactive to light, extraocular muscles intact Neck-no lymphadenopathy or thyromegaly, trachea midline Chest-clear to auscultation. No rales, wheezing or rhonchi Cardiac-regular rate and rhythm, normal S1 and S2 Abdomen-mildly distended. No focal tenderness. Normal bowel sounds, no hepatosplenomegaly Extremities-no cyanosis, clubbing, or edema Neuro-cranial nerves II through XII intact, motor and sensory function within normal limits, strength symmetrical, no focal deficits Psych-normal affect, normal mood Results & Data Results & Data Vital Signs (Past 12 Hours) Vital Signs Temp Pulse Resp BP Pulse Ox O2 Del Method 11/26/24 07:09 36.7 C 86 16 124/74 97 Room Air Laboratory Results 11/26/24 05:45 11/26/24 05:45 11/26/24 05:45 11/26/24 05:45 PG Care Time/CCT Total # of Minutes Spent Total Time Spent with Patient: Total time spent is greater than 50% in coordination of care (as documented) at patient's floor/unit and/or counseling patient: Coding Level of Care Code 52319 SUB INP/OBS CARE 3/50MIN Diagnoses Abdominal pain R10.84 Abdominal location: generalized CHIN (acute kidney injury) N17.9 Urinary tract infection N39.0 Hematuria presence: without hematuria Urinary tract infection type: site unspecified Abdominal ascites R18.0 Ascites type: malignant Hyperkalemia E87.5 Iron deficiency anemia D50.9 (1) Abdominal pain Abdominal location: generalized Qualified Code(s): R10.84 - Generalized abdominal pain (3) Urinary tract infection Hematuria presence: without hematuria Urinary tract infection type: site unspecified Qualified Code(s): N39.0 - Urinary tract infection, site not specified (4) Abdominal ascites Ascites type: malignant Qualified Code(s): R18.0 - Malignant ascites
[2024-11-26] MEDS: MAGNESIUM SULFATE / D5W 1 GM/100 ML BAG IV SCH (10:46)
[2024-11-26] MEDS: traMADol HCL 50 MG TABLET PO PRN (11:33)
[2024-11-26] MEDS: cefTRIAXone SODIUM 2,000 MG/50 ML BAG IV SCH (17:47)
[2024-11-26] MEDS: HEPARIN 100 UNIT/ML 5ML FLUSH FLUSH PRN (22:24)
--- NOTE | 2024-11-27 07:19 | Oncology Consultation ---
Date of Consultation November 27, 2024 Assessment & Plan (1) Colon cancer metastasized to multiple sites: (2) Urinary tract infection: (3) Abdominal ascites: Plan -Suspect abdominal pain due to worsening metastatic disease. She also has increased ascites which might be contributing. She indicates that abdominal pain seems to have improved. Ultimately, will need to start systemic therapy BÁRBARA which should help improve symptoms if she responds to treatment. -Consider paracentesis if ascites continues to worsen and she develops worsening abdominal pain -She will be scheduled for follow-up with Dr. Liz upon discharge from hospital to discuss overall treatment plan. Thank you for this consult. Will follow peripherally while patient is in the hospital. Feel free to call if you have any other questions History of Present Illness Reason for Consultation: Metastatic colon cancer Attending Physician: Eligio Flood MD, PhD History of Present Illness 64-year-old female with history of metastatic colon cancer followed by my colleague Dr. Liz at [facility]. She completed 12 cycles of chemotherapy with FOLFOX plus bevacizumab on 04/19/2024. Subsequently [place] [facility] [place] showed persistent disease and so she did not undergo HIPEC. She was admitted to [facility] with abdominal pain, CHIN, UTI. Of note, CT CAP obtained for restaging on 11/14/2024 had revealed disease progression with interval development of mediastinal lymphatic metastasis, extensive peritoneal carcinomatosis, small amount of ascites, moderate right hydroureteronephrosis, multiple pathologic retroperitoneal lymph nodes and mesenteric nodule/lymph nodes new from prior CT. On admission, CT abdomen and pelvis was repeated which showed metastatic disease within abdomen and pelvis with unchanged omental implants and adenopathy, increased volume of ascites. Allergies Allergy/AdvReac Type Severity Reaction Status Date / Time Iodinated Contrast Media Allergy Hives Verified 11/25/24 17:28 Penicillins Allergy Unknown Verified 11/25/24 17:28 povidone-iodine Allergy Hives Verified 11/25/24 17:28 [From Betadine] Home Medications Medication Instructions Recorded Confirmed Type glimepiride 4 mg tablet 4 mg PO QAM 08/30/23 11/25/24 History simvastatin 40 mg tablet 40 mg PO QPM 08/30/23 11/25/24 History carvedilol 6.25 mg tablet 6.25 mg PO BID 11/02/23 11/25/24 History apixaban 2.5 mg tablet (Eliquis) 2.5 mg PO BID 11/25/24 11/25/24 History ondansetron HCl 8 mg tablet 8 mg PO DAILY PRN Nausea 11/25/24 11/25/24 History pioglitazone 30 mg tablet 30 mg PO DAILY 11/25/24 11/25/24 History tramadol 50 mg tablet 50 mg PO Q8H PRN pain #30 tabs 11/27/24 Rx Patient History Medical History Metastatic colon cancer to liver Colostomy in place Cataracts, bilateral History of kidney stones Diverticulosis DM type 2 (diabetes mellitus, type 2) HLD (hyperlipidemia) HTN (hypertension) Chronic deep vein thrombosis (DVT) "Small" LLE clot on recent doppler by PCP per patient, advised nothing further needed per patient Atrial fibrillation Single episode 08/2023 while [place] [facility] [place] > prescribed Eliquis/Coreg Surgical History Port-A-Cath in place (11/05/23) Insertion of Access Port with Fluoroscopy(Left) - Lynn Licona DO History of lithotripsy x2 H/O colonoscopy Hx of hysterectomy (2020) History of colon surgery Del Rosario's procedure with right salpingo-oophorectomy along with biopsies of the peritoneum,mesentery and liver per Dr. Rubio's note Family History Grandmother Colorectal cancer Father Hypertension Diabetes Social History Smoking Status: Never smoker Tobacco Type: Cigarettes Second Hand Exposure: No; Do You Dip or Chew Tobacco: No; Hx Alcohol Use: No Hx Substance Use: No Preferred Language: Bolivian Communication Ability: Effective Wealth Management Director Required: No Beliefs That Will Affect Care: None marital status: Current Living Situation: Spouse current occupational status: retired How many Children do You have: 1 Feels Safe at Home: Yes during the past year weight has: decreased > 10 lbs Assistive Devices: None Results & Data Vital Signs (Past 12 Hours) Vital Signs Temp Pulse Resp BP Pulse Ox O2 Del Method 11/26/24 22:13 36.8 C 89 14 111/61 94 Room Air 11/26/24 20:53 91 H 126/72 (2) Urinary tract infection Hematuria presence: without hematuria Urinary tract infection type: site unspecified Qualified Code(s): N39.0 - Urinary tract infection, site not specified (3) Abdominal ascites Ascites type: malignant Qualified Code(s): R18.0 - Malignant ascites
[2024-11-27 07:22] VITALS: RESP 16
[2024-11-27 10:16] LABS: Basophils # (auto) 0.04 K/uL (0.00-0.20); Basophils % (auto) 0.3 %; Eosinophils # (auto) 0.07 K/uL (0.00-0.50); Eosinophils % (auto) 0.6 %; Hematocrit (blood only) 24.2 % (37.0-47.0); Hemoglobin 7.8 g/dl (12.0-16.0); Immature Granulocytes # (auto) 0.14 K/uL (0.01-0.20); Immature Granulocytes % (auto) 1.1 %; Lymphocytes # (auto) 0.61 K/uL (1.20-3.40); Lymphocytes % (auto) 4.9 %; Mean Corpuscular Hemoglobin 28.5 pg (25.0-34.0); Mean Corpuscular Hgb Conc 32.2 g/dL (32.0-36.0); Mean Corpuscular Volume 88.3 fL (80.0-100.0); Mean Platelet Volume 9.4 fL (9.4-12.4); Monocytes # (auto) 0.67 K/uL (0.11-0.59); Monocytes % (auto) 5.3 %; Neutrophils # (auto) 11.01 K/uL (1.40-6.50); Neutrophils % (auto) 87.8 %; Platelet Count 326 K/uL (130-400); RDW Coefficient of Variation 14.5 % (11.5-14.5); RDW Standard Deviation 46.5 fL (36.4-46.3); Red Blood Count 2.74 M/uL (4.20-5.40); White Blood Count 12.54 K/ul (4.8-10.8)
[2024-11-27 10:34] LABS: RBC Morphology Unremarkable
[2024-11-27 10:37] LABS: BUN Creatinine Ratio 29.5 (10-20); Calcium 8.4 mg/dl (8.6-10.3); Creatinine Clr Calc Pharmacy 44.1 ml/min; Magnesium 1.5 mg/dl (1.7-2.4); Potassium 4.9 mmol/L (3.5-5.1)
[2024-11-27 14:55] VITALS: BP 129/73; PULSE 90; TEMP 97.5; O2SAT 98
== END 2024-11-27 19:11 | disposition home or self-care (01) | DRG 375 ==
LOC: ED 13:40 → EDINP 19:05 → SUATTDRO 19:05 → 3N 21:59

== ENCOUNTER 2024-12-11 16:21 | Inpatient (IN) ==
--- NOTE | 2024-12-11 17:44 | Emergency Department Note ---
Impression & Plan Influenza A, Nausea & vomiting, Hypomagnesemia, Hyperglycemia ED Provider Note HISTORY OF PRESENT ILLNESS: Patient is a 64-year-old female presenting with poor oral intake and vomiting. Patient has a history of stage IV colon cancer and is currently on chemotherapy. She started this round of chemotherapy on 12/01/2024. Reports for the last 7 to 10 days she has been having nausea and decreased oral intake. Denies any significant diarrhea. She has an ostomy in place and reports that her output is about normal. No reported fevers. She has been only tolerating a few sips of water at a time over the last few days. She reports she just does not have any desire to eat or drink anything and she is very nauseous. She has tried ODT Zofran at home with little relief of her symptoms. Does report some shortness of breath with mild exertion. Denies any chest pain. reports the patient is too weak to be at home. He states that she is very unsteady on her feet. Patient has had decreased urinary output but denies any dysuria when she does urinate. ROS: as above PHYSICAL EXAM: Constitutional: Patient appears in no acute distress. HENT: Head: Normocephalic and atraumatic. Eyes: EOMI, PERRL Mouth/Throat: Mucous membranes dry. Neck: Trachea midline. Neck supple. Cardiovascular: Tachycardic with regular rhythm. No murmurs, rubs or gallops. Intact distal pulses. Pulmonary/Chest: No respiratory distress. Breath sounds clear and equal bilaterally. No wheezes or rales. Abdominal: Abdomen soft, no tenderness, rebound or guarding. Colostomy in place Musculoskeletal: No edema, tenderness or deformity noted. Skin: Warm and dry. No rash, erythema, pallor or cyanosis Psychiatric: Appropriate mood and affect for situation. Neurological: Alert and keenly responsive. CN II-XII grossly intact, moving all extremities equally and fully. MDM: - Vitals signs showed tachycardia. - History obtained via patient. History as above. - Chronic conditions affecting care: HTN; HLD; Afib; DM-2; metastatic colon cancer - Differential diagnoses include, but are not limited to: small bowel obstruction; dehydration; electrolyte abnormality; UTI; pneumonia; viral syndrome - Order placed for continuous cardiac monitoring. At this time, monitor showed rate of 96 bpm with normal sinus rhythm, per my interpretation. - External medical records reviewed. Discharge summary dated 12/04/2024 was reviewed. Patient was admitted that time for acute kidney injury and a UTI. - EKG interpreted by myself showed normal sinus rhythm. Rate tachycardic at 104 bpm. QT 326. No acute ischemic changes. - Laboratory workup interpreted by myself showed normal WBC; anemia (Hgb 7.8); elevated INR (2.0); hyponatremia (Na 129); hyperglycemia (glucose 397); normal anion gap; normal lactate; hypomagnesemia (Mg 1.4); hypocalcemia (Ca 8.1); normal liver function; normal creatinine; normal troponin - CXR negative for pneumonia, per my interpretation - Viral respiratory panel positive for influenza A - CT abdomen/pelvis with IV contrast showed increase in omental caking/carcinomatosis as compared to October 2024. Noted have mild to moderate hydroureteronephrosis due to the right adnexal mass. New small left pleural effusion and increased ascites. - Patient given 2L NS and 4 mg IV zofran in ER. - Stool studies ordered. - Discussion was had with correctional counselor/case manager about patient's case and need for admission - Hospitalist, Dr. Jackson, consulted for admission - Patient admitted to [facility] for further evaluation and management. ASSESSMENT AND PLAN: Diagnosis: influenza A; nausea and vomiting; hyperglycemia; hypomagnesemia Plan: admit Past Med/Surg History Problem List (Updated 12/11/24 @ 21:00 by Keely Still MD) Hyperglycemia (Acute) Hypomagnesemia (Acute) Nausea & vomiting (Acute) Influenza A (Acute) Iron deficiency anemia Hyperkalemia Colon cancer metastasized to multiple sites Urinary tract infection (Acute) Pleural effusion (Acute) Abdominal ascites (Acute) Abdominal pain (Acute) Vomiting (Acute) CHIN (acute kidney injury) (Acute) Encounter for pre-operative examination Medical History Metastatic colon cancer to liver Colostomy in place Cataracts, bilateral History of kidney stones Diverticulosis DM type 2 (diabetes mellitus, type 2) HLD (hyperlipidemia) HTN (hypertension) Chronic deep vein thrombosis (DVT) "Small" LLE clot on recent doppler by PCP per patient, advised nothing further needed per patient Atrial fibrillation Single episode 08/2023 while hospitalized at [facility] [place] for bowel resection > prescribed Eliquis/Coreg Surgical History Port-A-Cath in place (11/05/23) Insertion of Access Port with Fluoroscopy(Left) - Lynn Lciona DO History of lithotripsy x2 H/O colonoscopy Hx of hysterectomy (2020) History of colon surgery Del Rosario's procedure with right salpingo-oophorectomy along with biopsies of the peritoneum,mesentery and liver per Dr. Rubio's note Family History Grandmother Colorectal cancer Father Hypertension Diabetes Social History Smoking Status: Never smoker Tobacco Type: Cigarettes Second Hand Exposure: No; Do You Dip or Chew Tobacco: No; Hx Alcohol Use: No Hx Substance Use: No Preferred Language: Venezuelan Communication Ability: Effective Drink Mixer Required: No Beliefs That Will Affect Care: None marital status: Current Living Situation: Spouse current occupational status: retired How many Children do You have: 1 Feels Safe at Home: Yes during the past year weight has: decreased > 10 lbs Assistive Devices: None Allergies Allergies Allergy/AdvReac Type Severity Reaction Status Date / Time Iodinated Contrast Media Allergy Hives Verified 11/25/24 17:28 Penicillins Allergy Unknown Verified 11/25/24 17:28 povidone-iodine Allergy Hives Verified 11/25/24 17:28 [From Betadine] Home Meds Home Medications Medication Instructions Recorded Confirmed glimepiride 4 mg tablet 4 mg PO QAM 08/30/23 12/11/24 simvastatin 40 mg tablet 40 mg PO QPM 08/30/23 12/11/24 carvedilol 6.25 mg tablet 6.25 mg PO BID 11/02/23 12/11/24 ondansetron HCl 8 mg tablet 8 mg PO DAILY PRN Nausea 11/25/24 12/11/24 pioglitazone 30 mg tablet 30 mg PO DAILY 11/25/24 12/11/24 metformin 1,000 mg tablet 1,000 mg PO BID 12/11/24 12/11/24 oxycodone 20 mg tablet,crush 20 mg PO DAILY PRN Pain 12/11/24 12/11/24 resistant,extended release 12 hr (OxyContin) Previous Rx's Medication Instructions Recorded tramadol 50 mg tablet 50 mg PO Q8H PRN pain #30 tabs 11/27/24 Results & Data (ED) Vital Signs Vital Signs - 24 hr 12/11/24 16:28 12/11/24 17:14 12/11/24 17:30 Temperature 36.8 C Temperature Source Skin Pulse Rate 115 H 107 H Pulse Rate [Apical] 95 H Respiratory Rate 18 16 Respiratory Effort / Characteristics Non-Labored Spontaneous Blood Pressure 123/72 Blood Pressure [Right Arm] 151/74 H Blood Pressure Mean 89 Blood Pressure Mean [Right Arm] 99 Blood Pressure Position [Right Arm] Lying Pulse Oximetry 96 95 Oxygen Delivery Method Room Air Room Air Sepsis Recent Fever Within 48 Hours No Sepsis New/Unexplained Change in Mental Status No Sepsis Action Taken by Nursing No Action Required 12/11/24 19:00 Temperature Temperature Source Pulse Rate Pulse Rate [Apical] 96 H Respiratory Rate 16 Respiratory Effort / Characteristics Non-Labored Spontaneous Blood Pressure Blood Pressure [Right Arm] 142/100 H Blood Pressure Mean Blood Pressure Mean [Right Arm] 114 Blood Pressure Position [Right Arm] Pulse Oximetry 94 Oxygen Delivery Method Room Air Sepsis Recent Fever Within 48 Hours Sepsis New/Unexplained Change in Mental Status Sepsis Action Taken by Nursing Laboratory Data 12/11/24 17:32 12/11/24 17:32 Lab Results 12/11/24 12/11/24 12/11/24 Range/Units 16:58 17:32 20:16 WBC 5.84 (4.8-10.8) K/ul RBC 2.87 L (4.20-5.40) M/uL Hgb 7.8 L (12.0-16.0) g/dl Hct 24.0 L (37.0-47.0) % MCV 83.6 (80.0-100.0) fL MCH 27.2 (25.0-34.0) pg MCHC 32.5 (32.0-36.0) g/dL RDW Std Deviation 43.8 (36.4-46.3) fL RDW Coeff of Jennifer 14.4 (11.5-14.5) % Plt Count 160 (130-400) K/uL MPV 9.6 (9.4-12.4) fL Immature Gran % (Auto) 0.3 % Neut % (Auto) 92.6 % Lymph % (Auto) 5.0 % Armstrong % (Auto) 1.9 % Eos % (Auto) 0.0 % Baso % (Auto) 0.2 % Neut # (Auto) 5.41 (1.40-6.50) K/uL Lymph # (Auto) 0.29 L (1.20-3.40) K/uL Armstrong # (Auto) 0.11 (0.11-0.59) K/uL Eos # (Auto) 0.00 (0.00-0.50) K/uL Baso # (Auto) 0.01 (0.00-0.20) K/uL Immature Gran # (Auto) 0.02 (0.01-0.20) K/uL Microcytosis Present PT 20.6 H (9.0-12.0) Seconds INR 2.0 H (0.9-1.1) APTT 36 H (21-31) Seconds PTT Ratio 1.3 Sodium 129 L (136-145) mmol/L Potassium 4.2 (3.5-5.1) mmol/L Chloride 95 L (98-107) mmol/L Carbon Dioxide 25 (21-32) mmol/L Anion Gap 9 (3-11) BUN 27 H (6-23) mg/dl Creatinine 1.12 (0.6-1.2) mg/dl Est Cr Clr Drug Dosing Not Reportable eGFR 54.23 BUN/Creatinine Ratio 24.1 H (10-20) Glucose 397 H* (70-99(Fasting)) mg/dl Lactate 1.2 (0.4-2.0) mmol/L Calcium 8.1 L (8.6-10.3) mg/dl Magnesium 1.4 L (1.7-2.4) mg/dl Total Bilirubin 0.3 (0.2-1.0) mg/dl AST 14 (13-39) U/L ALT 11 (7-52) U/L Alkaline Phosphatase 74 (34-104) U/L Troponin I High Sens 13.8 (0-14) pg/ml Total Protein 6.0 (6.0-8.3) gm/dl Albumin 2.8 L (3.4-5.0) gm/dl Globulin 3.2 (2.5-4.0) gm/dl Albumin/Globulin Ratio 0.9 (0.9-2) Stl C. cayetanensis PCR Cancelled Stool Rotavirus A PCR Cancelled Stl Adenov F 40/41 PCR Cancelled Stool Astrovirus (PCR) Cancelled Stool Campylobacter PCR Cancelled Stl C. diff Tox B Gene Cancelled Stool Cryptosporidium PCR Cancelled Stl E.coli Shiga Tox PCR Cancelled Stool E coli O157 PCR Cancelled Stl Enterotoxigenic E PCR Cancelled Stool EPEC (PCR) Cancelled Stool EAEC (PCR) Cancelled Stl E. histolytica PCR Cancelled Stool Giardia Lamblia PCR Cancelled Stool Salmonella PCR Cancelled Stool Sapovirus (PCR) Cancelled Stl P. shigelloides PCR Cancelled Stl Shigella/EIEC PCR Cancelled St Y.enterocolitica PCR Cancelled Stool Vibrio (PCR) Cancelled Stl Vibrio cholerae PCR Cancelled Stl Norovirus GI/GII PCR Cancelled Adenovirus (PCR) Not Detected (NotDetected) B. pertussis DNA (PCR) Not Detected (NotDetected) B.parapertussis DNA PCR Not Detected (NotDetected) C. pneumoniae DNA (PCR) Not Detected (NotDetected) Coronavirus OC43 (PCR) Not Detected (NotDetected) Coronavirus HKU1 (PCR) Not Detected (NotDetected) Coronavirus 229E (PCR) Not Detected (NotDetected) SARS-CoV-2 (PCR) Not Detected (NotDetected) Coronavirus NL63 (PCR) Not Detected (NotDetected) Human Metapneumovir PCR Not Detected (NotDetected) Influenza A (H3) PCR DETECTED A (NotDetected) Influenza Type B (PCR) Not Detected (NotDetected) M. pneumoniae (PCR) Not Detected (NotDetected) Parainfluenza 1 (PCR) Not Detected (NotDetected) Parainfluenza 2 (PCR) Not Detected (NotDetected) Parainfluenza 3 (PCR) Not Detected (NotDetected) Parainfluenza 4 (PCR) Not Detected (NotDetected) RSV (PCR) Not Detected (NotDetected) Entero/Rhino (PCR) Not Detected (NotDetected) Administered Medications Magnesium Sulfate/Dextrose (Magnesium Sulfate / D5w) 1 gm in 100 mls @ 100 mls/hr IV NOW STA Stop: 12/11/24 21:30 Last Admin: 12/11/24 20:38 Dose: 100 mls/hr Documented By: SID Discontinued Medications Sodium Chloride (Nss) 1,000 mls @ 999 mls/hr IV .Q1H1M ONE Stop: 12/11/24 18:12 Last Infusion: 12/11/24 20:02 Dose: Infused Documented By: Admin: 12/11/24 17:47 Dose: 999 mls/hr Documented By: [place] Sodium Chloride (Nss) 1,000 mls @ 999 mls/hr IV .Q1H1M ONE Stop: 12/11/24 20:57 Last Admin: 12/11/24 20:28 Dose: 999 mls/hr Documented By: SID Ondansetron HCl (Ondansetron Inj 2 Mg/Ml 2 Ml Vial) 4 mg IV NOW STA Stop: 12/11/24 17:13 Last Admin: 12/11/24 17:46 Dose: 4 mg Documented By: [place] Imaging Data Radiologist's Impression: Chest X-Ray 12/11/24 16:31 EXAM: Chest x-ray 2 view CLINICAL HISTORY: Congestion PRIORS: 11/25/2024 TECHNIQUE: Upright AP frontal view chest FINDINGS: A left-sided Mediport catheter is present, unchanged. There may be pulmonary emphysema. No airspace consolidation, effusion or congestive changes. Heart size is normal. No pneumothorax. Trachea is patent. Osseous structures demonstrate no acute abnormality. No radiopaque foreign body. IMPRESSION: No plain film evidence of an acute cardiopulmonary process. Electronically signed by [place] Pardo 12-11-2024 6:00 PM Abdomen/Pelvis CT 12/11/24 18:02 EXAM: CT Abdomen and Pelvis Without Intravenous Contrast INDICATION: Nausea, vomiting and diarrhea. TECHNIQUE: Axial computed tomography images of the abdomen and pelvis without intravenous contrast. Sagittal and coronal reformatted images were created and reviewed. This CT exam was performed using one or more of the following dose reduction techniques: automated exposure control, adjustment of the mA and/or kV according to patient size, and/or use of iterative reconstruction technique. Oral contrast was administered. COMPARISON: 11/14/2024 FINDINGS: Limitations: None. Lung bases and pleural spaces: New small layering left posterior pleural effusion measuring approximately 1.5 cm maximal thickness. There is bilateral lower lobe airway thickening and compressive atelectasis in the left lower lobe. Heart: No abnormality noted. ABDOMEN: Liver: Lack of intravenous contrast limits detection of some masses. No abnormality noted. Gallbladder and bile ducts: Hyperdense material in the gallbladder likely vicarious excretion. No ductal dilatation or stone. Pancreas: No pancreatic mass, calcification, inflammation or ductal dilation noted. Spleen: No significant abnormality noted. Adrenals: Stable nodular adrenal thickening. No measurable mass. Kidneys and ureters: Stable mild to moderate right hydroureteronephrosis to the distal ureter. Stomach and bowel: No distension or mucosal thickening. No inflammation noted. PELVIS: Appendix: No findings to suggest acute appendicitis. Bladder: Appears normal for the degree of filling. No stones or inflammation. No large mass. Masses may not be detected in the absence of opacification. Reproductive: Mildly increased size of bilateral adnexal masses. Left adnexal mass measures 7.6 x 6.4 x 7.0 cm and right adnexal mass contiguous with surgical clips measures 3.0 x 2.2 x 3.2 cm. There is significant increase in extensive omental caking with ascending encasement of portions of the colon. No intestinal obstruction identified. Hysterectomy. ABDOMEN and PELVIS: Intraperitoneal space: Ascites has increased now moderate. No free air. Bones/joints: Degenerative changes noted throughout the spine. No acute osseous abnormality seen. Soft tissues: No significant abnormality noted. Vasculature: Atherosclerotic calcification of the aorta and branches. No aneurysm. Lymph nodes: Extensive omental and peritoneal studding noted with increased shotty mesenteric, paraesophageal and retroperitoneal adenopathy. IMPRESSION: 1. Significant increase in omental caking/carcinomatosis compared to 11/14/2024. 2. Stable right mild to moderate hydroureteronephrosis to the right adnexal mass consistent with distal obstruction. 3. Slightly increased size of bilateral adnexal masses. 4. New small left pleural effusion and increased ascites. 5. Airway thickening and dependent atelectasis in the left lower lobe. ACT 112: Negative or not required by law. Electronically signed by Bhumi Ayala 12-11-2024 7:01 PM Discharge Plan Visit Data Chief Complaint: Vomiting Stated Complaint: CX TREATMENT. NOT EATING/DRINKING, VOMITING ED Provider: Keely Still Discharge Problem: Influenza A, Nausea & vomiting, Hypomagnesemia, Hyperglycemia Forms Stand Alone Forms: My [facility] Prescriptions Prescriptions: No Action carvedilol 6.25 mg tablet 6.25 mg PO BID Rx Instructions: must administer with a meal/food simvastatin 40 mg tablet 40 mg PO QPM glimepiride 4 mg Tablet 4 mg PO QAM Rx Instructions: administer with breakfast ondansetron HCl 8 mg tablet 8 mg PO DAILY PRN (Reason: Nausea) pioglitazone 30 mg tablet 30 mg PO DAILY tramadol 50 mg Tablet 50 mg PO Q8H PRN (Reason: pain) Qty: 30 0RF metformin 1,000 mg tablet 1,000 mg PO BID oxycodone [OxyContin] 20 mg tablet,oral only,ext.rel.12 hr 20 mg PO DAILY PRN (Reason: Pain) Referrals Referrals: Jese William [Primary Care Provider] -
[2024-12-11] MEDS: ONDANSETRON INJ 2 MG/ML 2 ML VIAL IV STA (17:46)
[2024-12-11] MEDS: SODIUM CHLORIDE 0.9% 1,000 ML IV ONE ×2 (17:47→20:28)
[2024-12-11 17:53] LABS: Hemoglobin 7.8 g/dl (12.0-16.0); Mean Corpuscular Hemoglobin 27.2 pg (25.0-34.0); Mean Corpuscular Hgb Conc 32.5 g/dL (32.0-36.0); Mean Corpuscular Volume 83.6 fL (80.0-100.0); Mean Platelet Volume 9.6 fL (9.4-12.4); Platelet Count 160 K/uL (130-400); RDW Coefficient of Variation 14.4 % (11.5-14.5); RDW Standard Deviation 43.8 fL (36.4-46.3); Red Blood Count 2.87 M/uL (4.20-5.40); White Blood Count 5.84 K/ul (4.8-10.8)
--- NOTE | 2024-12-11 18:02 | XRay Report ---
EXAM: Chest x-ray 2 view CLINICAL HISTORY: Congestion PRIORS: 11/25/2024 TECHNIQUE: Upright AP frontal view chest FINDINGS: A left-sided Mediport catheter is present, unchanged. There may be pulmonary emphysema. No airspace consolidation, effusion or congestive changes. Heart size is normal. No pneumothorax. Trachea is patent. Osseous structures demonstrate no acute abnormality. No radiopaque foreign body. IMPRESSION: No plain film evidence of an acute cardiopulmonary process. Electronically signed by [place] Pardo 12-11-2024 6:00 PM
[2024-12-11 18:14] LABS: Adenovirus PCR Not Detected (NotDetected); Bordetella parapertussis PCR Not Detected (NotDetected); Bordetella pertussis PCR Not Detected (NotDetected); Chlamydia pneumoniae PCR Not Detected (NotDetected); Coronavirus 229E PCR Not Detected (NotDetected); Coronavirus CoV-2 (COVID19)PCR Not Detected (NotDetected); Coronavirus HKU1 PCR Not Detected (NotDetected); Coronavirus NL63 PCR Not Detected (NotDetected); Coronavirus OC43PCR Not Detected (NotDetected); Human Metapneumovirus PCR Not Detected (NotDetected); Influenza A (H3) PCR DETECTED (NotDetected); Influenza B PCR Not Detected (NotDetected); Mycoplasma pneumoniae PCR Not Detected (NotDetected); Parainfluenza Virus 1 PCR Not Detected (NotDetected); Parainfluenza Virus 2 PCR Not Detected (NotDetected); Parainfluenza Virus 3 PCR Not Detected (NotDetected); Parainfluenza Virus 4 PCR Not Detected (NotDetected); Respiratory Syncytial VirusPCR Not Detected (NotDetected); Rhinovirus/Enterovirus PCR Not Detected (NotDetected)
[2024-12-11 18:23] LABS: Alanine Aminotransferase 11 U/L (7-52); Albumin Globulin Ratio 0.9 (0.9-2); Albumin Level 2.8 gm/dl (3.4-5.0); Alkaline Phosphatase 74 U/L (34-104); Anion Gap 9 (3-11); Aspartate Aminotransferase 14 U/L (13-39); BUN Creatinine Ratio 24.1 (10-20); Bilirubin,Total 0.3 mg/dl (0.2-1.0); Blood Urea Nitrogen 27 mg/dl (6-23); Calcium 8.1 mg/dl (8.6-10.3); Carbon Dioxide 25 mmol/L (21-32); Chloride 95 mmol/L (98-107); Globulin 3.2 gm/dl (2.5-4.0); Glucose 397 mg/dl (70-99(Fasting)); Magnesium 1.4 mg/dl (1.7-2.4); Potassium 4.2 mmol/L (3.5-5.1); Sodium 129 mmol/L (136-145); Troponin I High Sensitivity 13.8 pg/ml (0-14)
[2024-12-11 18:41] LABS: Partial Thromboplastin Ratio 1.3; Partial Thromboplastin Time 36 Seconds (21-31); Prothrombin Time 20.6 Seconds (9.0-12.0)
[2024-12-11 18:43] LABS: Basophils # (auto) 0.01 K/uL (0.00-0.20); Basophils % (auto) 0.2 %; Immature Granulocytes # (auto) 0.02 K/uL (0.01-0.20); Immature Granulocytes % (auto) 0.3 %; Lymphocytes # (auto) 0.29 K/uL (1.20-3.40); Microcytosis Present; Monocytes # (auto) 0.11 K/uL (0.11-0.59); Monocytes % (auto) 1.9 %; Neutrophils # (auto) 5.41 K/uL (1.40-6.50); Neutrophils % (auto) 92.6 %
--- NOTE | 2024-12-11 19:01 | CT Scan Report ---
EXAM: CT Abdomen and Pelvis Without Intravenous Contrast INDICATION: Nausea, vomiting and diarrhea. TECHNIQUE: Axial computed tomography images of the abdomen and pelvis without intravenous contrast. Sagittal and coronal reformatted images were created and reviewed. This CT exam was performed using one or more of the following dose reduction techniques: automated exposure control, adjustment of the mA and/or kV according to patient size, and/or use of iterative reconstruction technique. Oral contrast was administered. COMPARISON: 11/14/2024 FINDINGS: Limitations: None. Lung bases and pleural spaces: New small layering left posterior pleural effusion measuring approximately 1.5 cm maximal thickness. There is bilateral lower lobe airway thickening and compressive atelectasis in the left lower lobe. Heart: No abnormality noted. ABDOMEN: Liver: Lack of intravenous contrast limits detection of some masses. No abnormality noted. Gallbladder and bile ducts: Hyperdense material in the gallbladder likely vicarious excretion. No ductal dilatation or stone. Pancreas: No pancreatic mass, calcification, inflammation or ductal dilation noted. Spleen: No significant abnormality noted. Adrenals: Stable nodular adrenal thickening. No measurable mass. Kidneys and ureters: Stable mild to moderate right hydroureteronephrosis to the distal ureter. Stomach and bowel: No distension or mucosal thickening. No inflammation noted. PELVIS: Appendix: No findings to suggest acute appendicitis. Bladder: Appears normal for the degree of filling. No stones or inflammation. No large mass. Masses may not be detected in the absence of opacification. Reproductive: Mildly increased size of bilateral adnexal masses. Left adnexal mass measures 7.6 x 6.4 x 7.0 cm and right adnexal mass contiguous with surgical clips measures 3.0 x 2.2 x 3.2 cm. There is significant increase in extensive omental caking with ascending encasement of portions of the colon. No intestinal obstruction identified. Hysterectomy. ABDOMEN and PELVIS: Intraperitoneal space: Ascites has increased now moderate. No free air. Bones/joints: Degenerative changes noted throughout the spine. No acute osseous abnormality seen. Soft tissues: No significant abnormality noted. Vasculature: Atherosclerotic calcification of the aorta and branches. No aneurysm. Lymph nodes: Extensive omental and peritoneal studding noted with increased shotty mesenteric, paraesophageal and retroperitoneal adenopathy. IMPRESSION: 1. Significant increase in omental caking/carcinomatosis compared to 11/14/2024. 2. Stable right mild to moderate hydroureteronephrosis to the right adnexal mass consistent with distal obstruction. 3. Slightly increased size of bilateral adnexal masses. 4. New small left pleural effusion and increased ascites. 5. Airway thickening and dependent atelectasis in the left lower lobe. ACT 112: Negative or not required by law. Electronically signed by Bhumi Ayala 12-11-2024 7:01 PM
[2024-12-11] MEDS: MAGNESIUM SULFATE / D5W 1 GM/100 ML BAG IV STA (20:38)
[2024-12-11] MEDS: PANTOprazole 40 MG/10 ML SYR IV ONE (21:47)
[2024-12-11] MEDS: MAGNESIUM SULFATE / D5W 1 GM/100 ML BAG IV SCH (21:54)
[2024-12-11] MEDS: Patient's HEIGHT &/or WEIGHT Needed STA (21:57)
--- NOTE | 2024-12-11 21:57 | History & Physical Report ---
Date of Service December 11, 2024 Assessment & Plan (1) Nausea & vomiting: (2) Influenza A: (3) Colon cancer metastasized to multiple sites: (4) Hyperglycemia due to diabetes mellitus: (5) Pneumonia: (6) Hypomagnesemia: Plan The patient is a 64-year-old female with past medical history including iron deficiency anemia, colon cancer metastasized to multiple sites, UTI, abdominal ascites status post recent paracentesis, acute kidney injury, hypertension, diabetes mellitus, and hyperlipidemia. The patient presents to the emergency department with complaint of decreased oral intake associated with nausea, vomiting and reflux type symptoms began earlier in the day this morning. She reports that she was having persistence or worsening of nausea and decreased oral intake since she began neurology chemotherapy on 12/01/2024, with most recent dosing earlier in the day today. She reports trying a Zofran ODT at home with little relief of symptoms. She also notes some shortness of breath and dyspnea on exertion that began over the past 1 to 2 days as well. She has been feeling too weak to stand home, has had imbalance but no falls. She has decreased urinary output, however, has had decreased oral intake. CT scan suggests increasing carcinomatosis, and respiratory BioFire is positive for influenza A in the ED this evening. She is referred for evaluation for admission. Patient is concerned that she had made the wrong choice of chemotherapy and changing to pill form, and will discuss with hematology changing over to pump therapy. #Intractable N/V- Multifactorial: Combination of influenza A, worsening carcinomatosis, reflux, and others Symptomatic treatment with Zofran 4 mg IV every 6 hours Status post liter normal saline bolus in ED Place on NSS plus KCl 20 mEq at 8oml/hr x 1 liter #Influenza A-H3-- Patient is having significant reflux at this time. Give a dose of Protonix IV. If tolerates, will give first dose of Tamiflu this evening, otherwise return the a.m. Symptoms of fatigue and generalized malaise are more likely primarily secondary to worsening carcinomatosis and reflux than influenza A #Pneumonia involving left lung- HAP Placed on cefepime 2 g IV every 12 hours Nasal cannula oxygen, titrate to keep pulse ox around 94% #Hypomagnesemia- Magnesium 1.4 on admission- Given 1 g by ED, will give additional 2 g IV recheck in the a.m. #Metastatic: CA, with worsening carcinomatosis- Patient was discussed with Dr. Liz regarding changing from oral chemotherapy to pump based therapy Consult Dr. Liz #Ongoing medical issues Chronic iron deficiency anemia-hemoglobin at baseline 7.8. Follow serially Diabetes mellitus-glucose 397 on admission. Hold metformin, pioglitazone and glimepiride. Place Accu-Cheks with NovoLog SSI HTN- continue carvedilol with hold parameters Pain Control: Morphine 2mg IV q3h prn moderate pain. Morphine 4mg IV q3h prn severe pain History of Present Illness Chief Complaint: The patient presents to the emergency department with complaint of decreased oral intake associated with nausea, vomiting and reflux type symptoms began earlier in the day this morning. She reports that she was having persistence or worsening of nausea and decreased oral intake since she began neurology chemotherapy on 12/01/2024, with most recent dosing earlier in the day today. She reports trying a Zofran ODT at home with little relief of symptoms. She also notes some shortness of breath and dyspnea on exertion that began over the past 1 to 2 days as well. She has been feeling too weak to stand home, has had imbalance but no falls. She has decreased urinary output, however, has had decreased oral intake Primary Care Provider: Jese William The patient is a 64-year-old female with past medical history including iron deficiency anemia, colon cancer metastasized to multiple sites, UTI, abdominal ascites status post recent paracentesis, acute kidney injury, hypertension, diabetes mellitus, and hyperlipidemia. She presents to the emergency department with complaint of decreased oral intake secondary to nausea, vomiting and worsening reflux worsened earlier in the day today and has progressed. She had no symptomatic relief with Zofran ODT, but has had some improvement with IV fluids, IV Zofran in the ED this evening. CT scan suggests increasing ca rcinomatosis, and respiratory BioFire is positive for influenza A Allergies Allergy/AdvReac Type Severity Reaction Status Date / Time Iodinated Contrast Media Allergy Hives Verified 11/25/24 17:28 Penicillins Allergy Unknown Verified 11/25/24 17:28 povidone-iodine Allergy Hives Verified 11/25/24 17:28 [From Betadine] Home Medications Medication Instructions Recorded Confirmed Type glimepiride 4 mg tablet 4 mg PO QAM 08/30/23 12/11/24 History simvastatin 40 mg tablet 40 mg PO QPM 08/30/23 12/11/24 History carvedilol 6.25 mg tablet 6.25 mg PO BID 11/02/23 12/11/24 History ondansetron HCl 8 mg tablet 8 mg PO DAILY PRN Nausea 11/25/24 12/11/24 History pioglitazone 30 mg tablet 30 mg PO DAILY 11/25/24 12/11/24 History tramadol 50 mg tablet 50 mg PO Q8H PRN pain #30 tabs 11/27/24 12/11/24 Rx metformin 1,000 mg tablet 1,000 mg PO BID 12/11/24 12/11/24 History oxycodone 20 mg tablet,crush 20 mg PO DAILY PRN Pain 12/11/24 12/11/24 History resistant,extended release 12 hr (OxyContin) Past Med/Surg History Problem List (Updated 12/11/24 @ 22:22 by Nav Jackson MD) Pneumonia Hyperglycemia due to diabetes mellitus Hyperglycemia (Acute) Hypomagnesemia (Acute) Nausea & vomiting (Acute) Influenza A (Acute) Iron deficiency anemia Hyperkalemia Colon cancer metastasized to multiple sites Urinary tract infection (Acute) Pleural effusion (Acute) Abdominal ascites (Acute) Abdominal pain (Acute) Vomiting (Acute) CHIN (acute kidney injury) (Acute) Encounter for pre-operative examination Medical History Metastatic colon cancer to liver Colostomy in place Cataracts, bilateral History of kidney stones Diverticulosis DM type 2 (diabetes mellitus, type 2) HLD (hyperlipidemia) HTN (hypertension) Chronic deep vein thrombosis (DVT) "Small" LLE clot on recent doppler by PCP per patient, advised nothing further needed per patient Atrial fibrillation Single episode 08/2023 while hospitalized at [facility] for bowel resection > prescribed Eliquis/Coreg Surgical History Port-A-Cath in place (11/05/23) Insertion of Access Port with Fluoroscopy(Left) - Lynn Licona DO History of lithotripsy x2 H/O colonoscopy Hx of hysterectomy (2020) History of colon surgery Del Rosario's procedure with right salpingo-oophorectomy along with biopsies of the peritoneum,mesentery and liver per Dr. Rubio's note Family History Grandmother Colorectal cancer Father Hypertension Diabetes Social History Smoking Status: Never smoker Tobacco Type: Cigarettes Second Hand Exposure: No; Do You Dip or Chew Tobacco: No; Hx Alcohol Use: No Hx Substance Use: No Preferred Language: Kiswahili Communication Ability: Effective Analytical Laboratory Technician Required: No Beliefs That Will Affect Care: None marital status: Current Living Situation: Spouse current occupational status: retired How many Children do You have: 1 Feels Safe at Home: Yes during the past year weight has: decreased > 10 lbs Assistive Devices: None Review of Systems Review of Systems: The patient denies chest pain, palpitations, lower extremity swelling, sore throat, fevers, chills, sweats, diarrhea , constipation, blood in urine or stool, dysuria, urinary frequency or urgency, lightheadedness, dizziness, headache, memory loss, loss of consciousness, rash, abnormal bruising or bleeding, imbalance, focal weakness, numbness or tingling in arms or legs, generalized arthralgias or myalgias, back or neck pain, or night sweats. The review of systems is otherwise negative other than for that already noted above, and at least 10 systems have been reviewed. Physical Exam Physical Exam: The patient is awake, alert and oriented 3, fatigued, normocephalic and atraumatic, lying in bed and in no acute distress. HEENT--PERRL, EOMI, mucous membranes and oropharynx dry. Neck--supple. No JVD. No bruits. Thyroid normal, trachea midline, no adenopathy. Heart--normal S1 and S2. No murmurs, rubs or gallops. Lungs--decreased breath left side. no respiratory distress, no accessory muscle use. Abdomen--normal bowel sounds and soft. Nontender. Nondistended, no hernias or masses, no organomegaly. Extremities--no cyanosis or clubbing. No edema. There are good distal pulses b /l. Dermatologic--normal skin turgor, normal color, no abnormal lymph nodes, no rash. Neurologic--cranial nerves II through XII grossly intact. Rheumatologic--normal range of motion. Psychiatric--normal affect. Results & Data Results & Data Vital Signs (Past 12 Hours) Vital Signs Temp Pulse Pulse Resp BP BP Pulse Ox 12/11/24 21:12 87 12/11/24 21:00 89 16 143/76 H 93 12/11/24 19:00 96 H 16 142/100 H 94 12/11/24 17:30 95 H 16 151/74 H 95 12/11/24 17:14 107 H 12/11/24 16:28 36.8 C 115 H 18 123/72 96 O2 Del Method 12/11/24 21:12 12/11/24 21:00 Room Air 12/11/24 19:00 Room Air 12/11/24 17:30 Room Air 12/11/24 17:14 12/11/24 16:28 Room Air Laboratory Results Laboratory Results WBC 5.84 K/ul (4.8-10.8) 12/11/24 17:32 RBC 2.87 M/uL (4.20-5.40) L 12/11/24 17:32 Hgb 7.8 g/dl (12.0-16.0) L 12/11/24 17:32 Hct 24.0 % (37.0-47.0) L 12/11/24 17:32 MCV 83.6 fL (80.0-100.0) 12/11/24 17:32 MCH 27.2 pg (25.0-34.0) 12/11/24 17:32 MCHC 32.5 g/dL (32.0-36.0) 12/11/24 17:32 RDW Std Deviation 43.8 fL (36.4-46.3) 12/11/24 17:32 RDW Coeff of Jennifer 14.4 % (11.5-14.5) 12/11/24 17:32 Plt Count 160 K/uL (130-400) 12/11/24 17:32 MPV 9.6 fL (9.4-12.4) 12/11/24 17:32 Immature Gran % (Auto) 0.3 % 12/11/24 17: Neut % (Auto) 92.6 % 12/11/24 17: Lymph % (Auto) 5.0 % 12/11/24 17:32 Clayton % (Auto) 1.9 % 12/11/24 17:32 Eos % (Auto) 0.0 % 12/11/24 17:32 Baso % (Auto) 0.2 % 12/11/24 17:32 Neut # (Auto) 5.41 K/uL (1.40-6.50) 12/11/24 17:32 Lymph # (Auto) 0.29 K/uL (1.20-3.40) L 12/11/24 17:32 Clayton # (Auto) 0.11 K/uL (0.11-0.59) 12/11/24 17:32 Eos # (Auto) 0.00 K/uL (0.00-0.50) 12/11/24 17: Baso # (Auto) 0.01 K/uL (0.00-0.20) 12/11/24 17: Immature Gran # (Auto) 0.02 K/uL (0.01-0.20) 12/11/24 17:32 Microcytosis Present 12/11/24 17:32 PT 20.6 Seconds (9.0-12.0) H 12/11/24 17:32 INR 2.0 (0.9-1.1) H 12/11/24 17:32 APTT 36 Seconds (21-31) H 12/11/24 17:32 PTT Ratio 1.3 12/11/24 17:32 Sodium 129 mmol/L (136-145) L 12/11/24 17:32 Potassium 4.2 mmol/L (3.5-5.1) 12/11/24 17:32 Chloride 95 mmol/L (98-107) L 12/11/24 17:32 Carbon Dioxide 25 mmol/L (21-32) 12/11/24 17:32 Anion Gap 9 (3-11) 12/11/24 17:32 BUN 27 mg/dl (6-23) H 12/11/24 17:32 Creatinine 1.12 mg/dl (0.6-1.2) 12/11/24 17:32 Est Cr Clr Drug Dosing Not Reportable 12/11/24 17:32 eGFR 54.23 12/11/24 17:32 BUN/Creatinine Ratio 24.1 (10-20) H 12/11/24 17:32 Glucose 397 mg/dl (70-99(Fasting)) H* 12/11/24 17:32 Lactate 1.2 mmol/L (0.4-2.0) 12/11/24 17:32 Calcium 8.1 mg/dl (8.6-10.3) L 12/11/24 17:32 Magnesium 1.4 mg/dl (1.7-2.4) L 12/11/24 17:32 Total Bilirubin 0.3 mg/dl (0.2-1.0) 12/11/24 17:32 AST 14 U/L (13-39) 12/11/24 17:32 ALT 11 U/L (7-52) 12/11/24 17:32 Alkaline Phosphatase 74 U/L (34-104) 12/11/24 17:32 Troponin I High Sens 13.8 pg/ml (0-14) 12/11/24 17:32 Total Protein 6.0 gm/dl (6.0-8.3) 12/11/24 17:32 Albumin 2.8 gm/dl (3.4-5.0) L 12/11/24 17:32 Globulin 3.2 gm/dl (2.5-4.0) 12/11/24 17:32 Albumin/Globulin Ratio 0.9 (0.9-2) 12/11/24 17:32 Urine Color Cancelled 12/11/24 20:16 Urine Appearance Cancelled 12/11/24 20:16 Urine pH Cancelled 12/11/24 20:16 Ur Specific Cobb Cancelled 12/11/24 20:16 Urine Protein Cancelled 12/11/24 20:16 Urine Glucose (UA) Cancelled 12/11/24 20:16 Urine Ketones Cancelled 12/11/24 20:16 Urine Blood Cancelled 12/11/24 20:16 Urine Nitrite Cancelled 12/11/24 20:16 Urine Bilirubin Cancelled 12/11/24 20:16 Urine Urobilinogen Cancelled 12/11/24 20:16 Ur Leukocyte Esterase Cancelled 12/11/24 20:16 Urine WBC (Auto) Cancelled 12/11/24 20:16 Urine RBC (Auto) Cancelled 12/11/24 20:16 U Hyaline Cast (Auto) Cancelled 12/11/24 20:16 U Epithel Cells (Auto) Cancelled 12/11/24 20:16 Urine Bacteria (Auto) Cancelled 12/11/24 20:16 Ur Renal Epithelial Cell Cancelled 12/11/24 20:16 Kieran Biurate Crystals Cancelled 12/11/24 20:16 Calcium Oxalate Crystal Cancelled 12/11/24 20:16 Leucine Crystals Cancelled 12/11/24 20:16 Cystine Crystals Cancelled 12/11/24 20:16 Uric Acid Crystals Cancelled 12/11/24 20:16 Triple Phos Crystals Cancelled 12/11/24 20:16 Sulfonamide Crystals Cancelled 12/11/24 20:16 Cholesterol Crystals Cancelled 12/11/24 20:16 Talc Crystals Cancelled 12/11/24 20:16 Tyrosine Crystals Cancelled 12/11/24 20:16 Hippuric Acid Crystals Cancelled 12/11/24 20:16 Unidentified Crystals Cancelled 12/11/24 20:16 Amorphous Sediment Cancelled 12/11/24 20:16 Epithelial Casts Cancelled 12/11/24 20:16 Hyaline Casts Cancelled 12/11/24 20:16 Granular Casts Cancelled 12/11/24 20:16 Waxy Casts Cancelled 12/11/24 20:16 RBC Casts Cancelled 12/11/24 20:16 WBC Casts Cancelled 12/11/24 20:16 Other Casts Cancelled 12/11/24 20:16 Urine Mucus Cancelled 12/11/24 20:16 Urine Other Cancelled 12/11/24 20:16 Urine Trichomonas Cancelled 12/11/24 20:16 Urine Yeast Cancelled 12/11/24 20:16 Urine Sperm Cancelled 12/11/24 20:16 Ur Oval Fat Bodies Cancelled 12/11/24 20:16 Stl C. cayetanensis PCR Cancelled 12/11/24 20:16 Stool Rotavirus A PCR Cancelled 12/11/24 20:16 Stl Adenov F 40/41 PCR Cancelled 12/11/24 20:16 Stool Astrovirus (PCR) Cancelled 12/11/24 20:16 Stool Campylobacter PCR Cancelled 12/11/24 20:16 Stl C. diff Tox B Gene Cancelled 12/11/24 20:16 Stool Cryptosporidium PCR Cancelled 12/11/24 20:16 Stl E.coli Shiga Tox PCR Cancelled 12/11/24 20:16 Stool E coli O157 PCR Cancelled 12/11/24 20:16 Stl Enterotoxigenic E PCR Cancelled 12/11/24 20:16 Stool EPEC (PCR) Cancelled 12/11/24 20:16 Stool EAEC (PCR) Cancelled 12/11/24 20:16 Stl E. histolytica PCR Cancelled 12/11/24 20:16 Stool Giardia Lamblia PCR Cancelled 12/11/24 20:16 Stool Salmonella PCR Cancelled 12/11/24 20:16 Stool Sapovirus (PCR) Cancelled 12/11/24 20:16 Stl P. shigelloides PCR Cancelled 12/11/24 20:16 Stl Shigella/EIEC PCR Cancelled 12/11/24 20:16 St Y.enterocolitica PCR Cancelled 12/11/24 20:16 Stool Vibrio (PCR) Cancelled 12/11/24 20:16 Stl Vibrio cholerae PCR Cancelled 12/11/24 20:16 Stl Norovirus GI/GII PCR Cancelled 12/11/24 20:16 Adenovirus (PCR) Not Detected (NotDetected) 12/11/24 16:58 B. pertussis DNA (PCR) Not Detected (NotDetected) 12/11/24 16:58 B.parapertussis DNA PCR Not Detected (NotDetected) 12/11/24 16:58 C. pneumoniae DNA (PCR) Not Detected (NotDetected) 12/11/24 16:58 Coronavirus OC43 (PCR) Not Detected (NotDetected) 12/11/24 16:58 Coronavirus HKU1 (PCR) Not Detected (NotDetected) 12/11/24 16:58 Coronavirus 229E (PCR) Not Detected (NotDetected) 12/11/24 16:58 SARS-CoV-2 (PCR) Not Detected (NotDetected) 12/11/24 16:58 Coronavirus NL63 (PCR) Not Detected (NotDetected) 12/11/24 16:58 Human Metapneumovir PCR Not Detected (NotDetected) 12/11/24 16:58 Influenza A (H3) PCR DETECTED (NotDetected) A 12/11/24 16:58 Influenza Type B (PCR) Not Detected (NotDetected) 12/11/24 16:58 M. pneumoniae (PCR) Not Detected (NotDetected) 12/11/24 16:58 Parainfluenza 1 (PCR) Not Detected (NotDetected) 12/11/24 16:58 Parainfluenza 2 (PCR) Not Detected (NotDetected) 12/11/24 16:58 Parainfluenza 3 (PCR) Not Detected (NotDetected) 12/11/24 16:58 Parainfluenza 4 (PCR) Not Detected (NotDetected) 12/11/24 16:58 RSV (PCR) Not Detected (NotDetected) 12/11/24 16:58 Entero/Rhino (PCR) Not Detected (NotDetected) 12/11/24 16:58 Impressions Chest X-Ray 12/11/24 16:31 EXAM: Chest x-ray 2 view CLINICAL HISTORY: Congestion PRIORS: 11/25/2024 TECHNIQUE: Upright AP frontal view chest FINDINGS: A left-sided Mediport catheter is present, unchanged. There may be pulmonary emphysema. No airspace consolidation, effusion or congestive changes. Heart size is normal. No pneumothorax. Trachea is patent. Osseous structures demonstrate no acute abnormality. No radiopaque foreign body. IMPRESSION: No plain film evidence of an acute cardiopulmonary process. Electronically signed by [place] Pardo 12-11-2024 6:00 PM Abdomen/Pelvis CT 12/11/24 18:02 EXAM: CT Abdomen and Pelvis Without Intravenous Contrast INDICATION: Nausea, vomiting and diarrhea. TECHNIQUE: Axial computed tomography images of the abdomen and pelvis without intravenous contrast. Sagittal and coronal reformatted images were created and reviewed. This CT exam was performed using one or more of the following dose reduction techniques: automated exposure control, adjustment of the mA and/or kV according to patient size, and/or use of iterative reconstruction technique. Oral contrast was administered. COMPARISON: 11/14/2024 FINDINGS: Limitations: None. Lung bases and pleural spaces: New small layering left posterior pleural effusion measuring approximately 1.5 cm maximal thickness. There is bilateral lower lobe airway thickening and compressive atelectasis in the left lower lobe. Heart: No abnormality noted. ABDOMEN: Liver: Lack of intravenous contrast limits detection of some masses. No abnormality noted. Gallbladder and bile ducts: Hyperdense material in the gallbladder likely vicarious excretion. No ductal dilatation or stone. Pancreas: No pancreatic mass, calcification, inflammation or ductal dilation noted. Spleen: No significant abnormality noted. Adrenals: Stable nodular adrenal thickening. No measurable mass. Kidneys and ureters: Stable mild to moderate right hydroureteronephrosis to the distal ureter. Stomach and bowel: No distension or mucosal thickening. No inflammation noted. PELVIS: Appendix: No findings to suggest acute appendicitis. Bladder: Appears normal for the degree of filling. No stones or inflammation. No large mass. Masses may not be detected in the absence of opacification. Reproductive: Mildly increased size of bilateral adnexal masses. Left adnexal mass measures 7.6 x 6.4 x 7.0 cm and right adnexal mass contiguous with surgical clips measures 3.0 x 2.2 x 3.2 cm. There is significant increase in extensive omental caking with ascending encasement of portions of the colon. No intestinal obstruction identified. Hysterectomy. ABDOMEN and PELVIS: Intraperitoneal space: Ascites has increased now moderate. No free air. Bones/joints: Degenerative changes noted throughout the spine. No acute osseous abnormality seen. Soft tissues: No significant abnormality noted. Vasculature: Atherosclerotic calcification of the aorta and branches. No aneurysm. Lymph nodes: Extensive omental and peritoneal studding noted with increased shotty mesenteric, paraesophageal and retroperitoneal adenopathy. IMPRESSION: 1. Significant increase in omental caking/carcinomatosis compared to 11/14/2024. 2. Stable right mild to moderate hydroureteronephrosis to the right adnexal mass consistent with distal obstruction. 3. Slightly increased size of bilateral adnexal masses. 4. New small left pleural effusion and increased ascites. 5. Airway thickening and dependent atelectasis in the left lower lobe. ACT 112: Negative or not required by law. Electronically signed by Bhumi Ayala 12-11-2024 7:01 PM Code Status & VTE Plan Code Status DNR/DNI VTE Prophylaxis Plan VTE Prophylaxis will be ordered: Yes PG Care Time/CCT Total # of Minutes Spent Total Time Spent with Patient: Total time spent is greater than 50% in coordination of care (as documented) at patient's floor/unit and/or counseling patient: Coding Level of Care Code 87685 INT INP/OBS CARE 3/75MIN Diagnoses Nausea & vomiting R11.2 Influenza A J10.1 Colon cancer metastasized to multiple sites C18.9 Hyperglycemia due to diabetes mellitus E11.65 Pneumonia J18.9 Hypomagnesemia E83.42
[2024-12-11] MEDS: CEFEPIME 2000MG 2,000 MG/20 ML SYR IV ONE (22:36)
[2024-12-11] MEDS ORDERED: ALBUT/IPRATROP 3MG/0.5MG NEB 3 ML VIAL NEB PRN (22:37)
[2024-12-11] MEDS ORDERED: MoRPHine SULFATE 4 MG/ML 1 ML CARP\\VIAL IV PRN (22:40)
[2024-12-11] MEDS ORDERED: MoRPHine SULFATE 2 MG/ML CARP IV PRN (22:40)
[2024-12-11] MEDS: NSS + 20MEQ KCL 20 MEQ/1,000 ML BAG IV SCH (22:47)
[2024-12-11] MEDS: OSELTAMIVIR PHOSPHATE 75 MG CAP PO STA (23:30)
[2024-12-11] MEDS ORDERED: GLUCOSE 40% GEL 15 GM TUBE PO PRN (23:43)
[2024-12-11] MEDS ORDERED: GLUCAGON FOR INJ 1 MG VIAL SQ PRN (23:43)
[2024-12-11] MEDS ORDERED: ONDANSETRON INJ 2 MG/ML 2 ML VIAL IV PRN (23:43)
[2024-12-11] MEDS ORDERED: GLUCOSE 10 TAB/TUBE PO PRN (23:43)
[2024-12-11] MEDS ORDERED: DEXTROSE 50% 50 ML SYRINGE IV PRN (23:43)
[2024-12-11] MEDS ORDERED: CARBOHYDRATES FOR HYPOGLYCEMIA PO PRN (23:43)
[2024-12-11] MEDS ORDERED: ACETAMINOPHEN 325 MG TAB PO PRN (23:43)
[2024-12-12] MEDS: INSULIN ASPART PER UNIT CHARGE SC SCH (00:17)
[2024-12-12 06:15] LABS: Eosinophils # (auto) 0.02 K/uL (0.00-0.50); Eosinophils % (auto) 0.7 %; Hematocrit (blood only) 23.3 % (37.0-47.0); Hemoglobin 7.6 g/dl (12.0-16.0); Immature Granulocytes # (auto) 0.01 K/uL (0.01-0.20); Immature Granulocytes % (auto) 0.3 %; Lymphocytes # (auto) 0.39 K/uL (1.20-3.40); Mean Corpuscular Hemoglobin 27.2 pg (25.0-34.0); Mean Corpuscular Hgb Conc 32.6 g/dL (32.0-36.0); Mean Corpuscular Volume 83.5 fL (80.0-100.0); Mean Platelet Volume 9.7 fL (9.4-12.4); Monocytes # (auto) 0.05 K/uL (0.11-0.59); Monocytes % (auto) 1.7 %; Neutrophils # (auto) 2.54 K/uL (1.40-6.50); Neutrophils % (auto) 84.3 %; Platelet Count 183 K/uL (130-400); RDW Coefficient of Variation 14.5 % (11.5-14.5); RDW Standard Deviation 44.1 fL (36.4-46.3); Red Blood Count 2.79 M/uL (4.20-5.40); White Blood Count 3.01 K/ul (4.8-10.8)
[2024-12-12 06:29] LABS: BUN Creatinine Ratio 23.4 (10-20); Calcium 8.1 mg/dl (8.6-10.3); Creatinine Clr Calc Pharmacy 57.2 ml/min; Potassium 4.1 mmol/L (3.5-5.1)
[2024-12-12 06:31] LABS: Albumin Level 2.7 gm/dl (3.4-5.0); Phosphorus 1.5 mg/dl (2.5-4.9)
[2024-12-12 06:35] LABS: Appearance Urine Cloudy (Clear); Bacteria Urine Automated None Seen (None Seen); Bilirubin Urine Negative (Negative); Blood Urine Negative (Negative); Cast Urine Automated >20 /lpf (0-2); Color Urine Yellow; Glucose Urine UA 3+ (Negative); Ketones Urine Trace (Negative); Leukocyte Esterase Urine Negative (Negative); Nitrite Urine Negative (Negative); Protein Urine 2+ (Negative); Specific Gravity Urine 1.029 (1.000-1.030); Urobilinogen Urine Negative (Negative); pH Urine 5.5 (4.5-7.5)
[2024-12-12] MEDS ORDERED: POTASSIUM PHOS 3 MMOL/1 ML INFUSION IV ONE (06:35)
[2024-12-12 06:39] LABS: RBC Morphology Unremarkable
--- NOTE | 2024-12-12 07:35 | Hospitalist Progress Note ---
Date of Service December 12, 2024 Assessment & Plan (1) Nausea & vomiting: (2) Influenza A: (3) Colon cancer metastasized to multiple sites: (4) Pneumonia: Plan This patient is a 64-year-old female with a history of metastatic stage IV colon cancer s/p colectomy and colostomy and 6 months of chemotherapy earlier this year/now on 2nd line therapy, DM 2, HTN, HL, kidney stones, DVT on Eliquis, lone atrial fibrillation who p/w decreased oral intake associated with N/V and reflux type symptoms x 1 day. She reports that she was having persistence or worsening of nausea and decreased oral intake since she began new daily po chemotherapy on 12/01/2024. Also w/ SOB and HARRISON x 1-2 days with generalized weakness. CT scan suggests increasing carcinomatosis, and respiratory BioFire positive for influenza A with LLL PNA on CXR. #Intractable N/V-secondary to influenza A, worsening carcinomatosis-improving, tolerating full liquids diet. Received IV fluids Continue Zofran 4 mg IV every 6 hours Advance diet to regular Continue IV Protonix and changed to p.o. once tolerating regular diet #Influenza A/possible secondary bacterial LLL pneumonia in immunocompromised patient on chemotherapy -Continue Tamiflu, cefepime -Not on atypical coverage but not likely necessary at this time -No blood cultures drawn -Continue supplemental O2 and wean off as tolerated #Hypomagnesemia/hypophosphatemia- Magnesium 1.4 on admission-replaced and now resolved Phosphorus low at 1.5-replaced with Neutra-Phos #Hyponatremia-mostly pseudohyponatremia from hyperglycemia, improving -Follow BMP, continue blood glucose control #Anemia Hemoglobin low at 7.6 , MCV 83. Baseline hemoglobin 9.0 from 6 months ago and she did recently have surgery 2 months ago which likely had some blood loss No bleeding from anywhere that she has noticed B12, folate, TSH levels recently normal. Fe levels low-received IV iron last admission Now on chemotherapy worsening her counts -Oncology recommends transfusion of PRBCs to keep hgb>8--> consented and giving 1 unit PRBCs -Follow CBC #Metastatic colon CA, with worsening carcinomatosis- Patient wishes to talk with Dr. Liz regarding changing from oral chemotherapy to pump based therapy Abdominal pain likely secondary to carcinomatosis and worsening likely malignant ascites. This has been ongoing for 2 months since her laparotomy the end of August at [facility] for aborted reversal of colostomy after pelvic mass was found. She has developed omental caking and carcinomatosis as well as mediastinal lymphadenopathy, ascites, and pleural effusions on CT scan since that time. Just started new po therapy 12/01/24 Had paracentesis last admission which conformed malignant ascites-patient declines to have repeat paracentesis at this time as she is not significantly uncomfortable INR elevated at 2.0-discussed with oncology-likely low level DIC from cancer, no bleeding from anywhere -Resume home tramadol as needed for pain -Consult Oncology appreciated #DM2 Hgb A1c 6.6% from 10/2024. She is on multiple oral medications at home -Hold home metformin, glimepiride, pioglitazone -Start NovoLog supplemental insulin here and add Lantus if needed for hyperglycemia #HTN/HL Blood pressures here are controlled -recently stopped lisinopril for CHIN/hyperkalemia last admission -Okay to continue simvastatin DVT prophylaxis-with a history of DVT and has ongoing metastatic cancer-resume home Eliquis 2.5 Mg p.o. twice daily Disposition-continued stay in PCU Admission and Anticipated Discharge Date Admission Date: December 11, 2024 Subjective having multiple loose stools and leakage of colostomy bag, asking for Imodium. Feeling much better overall though and tolerating full liquids diet today. Tele with NSR 70-80s Physical Exam Constitutional: WD/WN, vitals as above Respiratory: normal respiratory effort, lungs clear to auscultation Cardiovascular: RRR, no murmur, no edema Gastrointestinal (Abdomen): Inspection/Auscultation: normal bowel sounds; + abdomen abnormal to inspection (Colostomy bag in place) Percussion/Palpation: abdomen soft; abdomen nontender Psychiatric: A+Ox3, euthymic affect Results & Data Results & Data Vital Signs (Past 12 Hours) Vital Signs Temp Pulse Pulse Resp BP BP Pulse Ox 12/12/24 07:28 36.6 C 97 H 16 128/62 96 12/12/24 07:12 103 H 12/12/24 02:41 36.5 C 87 18 135/75 95 12/11/24 23:45 105 H 12/11/24 23:43 12/11/24 23:43 36.9 C 105 H 22 151/81 H 92 01/13/25 23:08 94 H 16 160/86 H 93 12/11/24 23:00 104 H 16 160/86 H 93 12/11/24 21:12 87 12/11/24 21:00 89 16 143/76 H 93 O2 Del Method 12/12/24 07:28 Room Air 12/12/24 07:12 12/12/24 02:41 Room Air 12/11/24 23:45 12/11/24 23:43 Room Air 12/11/24 23:43 Room Air 12/11/24 23:08 Room Air 12/11/24 23:00 Room Air 12/11/24 21:12 12/11/24 21:00 Room Air Laboratory Results CBC, BMP, INR, magnesium, phosphorus reviewed PG Care Time/CCT Total # of Minutes Spent Total Time Spent with Patient: Total time spent is greater than 50% in coordination of care (as documented) at patient's floor/unit and/or counseling patient: Coding Level of Care Code 83614 SUB INP/OBS CARE 3/50MIN Diagnoses Nausea & vomiting R11.2 Influenza A J10.1 Colon cancer metastasized to multiple sites C18.9 Pneumonia J18.9
[2024-12-12] MEDS ORDERED: traMADol HCL 50 MG TABLET PO PRN (07:56)
[2024-12-12] MEDS: POTASSIUM PHOSPHATE 21 MMOL in SODIUM CHLORIDE 0.9% 500 ML IV ONE (08:48)
[2024-12-12] MEDS: carvediloL 6.25 MG TAB PO SCH (08:48)
[2024-12-12] MEDS: OSELTAMIVIR PHOSPHATE SUSP 30 MG/5 ML UDP PO SCH (08:49)
[2024-12-12] MEDS: PANTOprazole 40 MG/10 ML SYR IV SCH (08:49)
[2024-12-12] MEDS: APIXABAN 2.5 MG TAB PO SCH (09:00)
[2024-12-12] MEDS: CEFEPIME 2000MG 2,000 MG/20 ML SYR IV SCH (09:01)
--- NOTE | 2024-12-12 09:38 | Oncology Consultation ---
Date of Consultation December 12, 2024 Assessment & Plan (1) Colon cancer metastasized to multiple sites: progressive colorectal cancer, at this point will recommend continuation of capecitabine which was initiated outpatient. She is on capecitabine 2,000 mg twice daily, we will resume outpatient dose and recommend finishing this cycle of chemotherapy as her colon cancer is progressing very quickly. rest of the management of metastatic colorectal cancer will be on an outpatient basis with resuming treatment with irinotecan plus Avastin. Understand that she wishes to switch therapy from CapeIRI to FOLFIRI, we will make that switch starting second cycle and will switch capecitabine to 5-fluorouracil. (2) Urinary tract infection: Given the concerns for sepsis/UTI continue broad-spectrum antibiotics with cefepime (3) Nausea & vomiting: . Agree with scheduled Zofran for control of nausea. Can add prochlorperazine if the nausea is not controlled with Zofran (4) Abdominal ascites: there is progressive abdominal ascites, can consider paracentesis again for relief of symptoms. Last paracentesis was on 11/30/2024, latest abdominal CT again reveals progressive ascites so some of her symptoms may be improved with another therapeutic paracentesis. (5) Anemia: The patient has normocytic normochromic anemia, her latest hemoglobin is 7.6 g/dL. I would recommend transfusion of 1 unit packed blood cells to maintain her hemoglobin above 8 especially she is dealing with multiple comorbidities and there should be some symptomatic improvement by a transfusion (6) Electrolyte abnormality: multiple electrolyte abnormalities including Hypophosphatemia, hypocalcemia, hypomagnesemia. To be managed by my colleagues from hospital internal medicine Plan Thank you for this interesting oncological consult. Total of 60 minutes were spent in counseling, coronation care, review of prior records. Medical oncology will continue to follow the patient make appropriate recommendations. History of Present Illness Reason for Consultation: Metastatic colorectal cancer chemotherapy-induced nausea vomiting deep vein thrombosis chronic anticoagulation with Apixaban Attending Physician: Sera Wilson MD History of Present Illness Metastatic colorectal cancer, KRAS mutated, exon 2p.G12V, low tumor mutational burden, MSI stable, negative for HER2/jared Date of diagnosis: 09/09/2023 Diagnosis: Mucinous adenocarcinoma, rectosigmoid, G3, poorly differentiated, 8.5 cm in the greatest dimension, invading visceral peritoneum, 9 out of 15 lymph nodes are positive Pathological staging: pT4a pN2b pM1 Surgical procedure: Del Rosario's procedure Pathology: Tumor arising out of the sigmoid colon, mucus adenoid carcinoma, G3, 8.5 cm, all margins negative for high-grade dysplasia. Metastatic deposits in the fallopian tube ovary and peritoneal implants Genetic testing with [facility]: KRAS mutated, exon 2p.G12V, low tumor mutational burden, MSI stable, negative for HER2/jared CT abdomen pelvis, 08/30/2023: Pneumoperitoneum secondary to perforation involving the distal sigmoid/rectosigmoid junction. There is irregular circumferential wall thick ening and enhancement of the rectosigmoid junction. No evidence of metastatic disease in the liver, clear lung bases CT chest abdomen pelvis, 02/08/2024: 1. No acute intrathoracic abnormality. 2. No pathologically enlarged lymph nodes or metastatic disease is identified within the chest. 3. Please refer to the CT abdomen and pelvis study of same day for additional findings. 1. No evidence of metastatic disease status post sigmoid resection with descending colostomy. 2. No evidence for a bowel obstruction. 3. Stable bilateral adrenal nodules. These are likely benign and can be assessed on follow-up exams to ensure stability. PET CT scan, 05/09/2024, [facility]: no evidence of metabolically active disease CT chest abdomen pelvis, 11/25/2024: IMPRESSION: 1. Interval development of extensive peritoneal carcinomatosis since PET/CT of May 03, 2024, as detailed above. Small amount of ascites. Moderate right hydroureteronephrosis which has developed since prior exam, due to narrowing of the distal right ureter by a right pelvic implant. 2. Multiple pathologic retroperitoneal lymph nodes and mesenteric nodules/lymph nodes which are new since prior CT. 3. No evidence for a bowel obstruction status post sigmoid resection with descending colostomy. 4. No hepatic metastases. 1. Interval development of mediastinal lymphatic metastasis. 2. No definite evidence of pulmonary metastasis. 3. Upper abdominal peritoneal carcinomatosis with small amount of ascites and partially imaged right-sided hydronephrosis. Findings are better seen on the same day CT abdomen and pelvis exam. CEA level: 10/29/2023: 1.1 ng/mL 01/12/2024: 2.5 ng/mL 02/09/2024: 2.7 ng/mL Treatment: FOLFOX + Avastin, cycle 1 day 1: 11/17/2023 FOLFOX + Avastin, cycle 2-day 1: 12/15/2023 FOLFOX + Avastin, cycle 3-day 1: 01/12/2024 FOLFOX + Avastin, cycle 4-day 1: 02/09/2024 FOLOFX + Avastin, cycle 5 day 1: 03/08/2024 FOLFOX + Avastin, cycle 6-day 1: 04/05/2024 comprehensive surgical evaluation at [facility] for cytoreductive surgery 05/09/2024 to 10/07/2024 palliative systemic chemotherapy: CAPIRI + Avastin, cycle 1 day 1: 12/01/2024 CT abdomen pelvis, 2024: IMPRESSION: 1. Significant increase in omental caking/carcinomatosis compared to 11/14/2024. 2. Stable right mild to moderate hydroureteronephrosis to the right adnexal mass consistent with distal obstruction. 3. Slightly increased size of bilateral adnexal masses. 4. New small left pleural effusion and increased ascites. 5. Airway thickening and dependent atelectasis in the left lower lobePaul Cash is a very pleasant 64-year-old woman who is very well-known to me for the last 1-1/2 years after she was diagnosed with metastatic colorectal cancer. She was initially on palliative systemic chemotherapy with FOLFOX plus Avastin starting October 2023. She finished 6 cycles of FOLFOX plus Avastin, rising of 12 total doses in March. Subsequently she was evaluated by her surgical oncology colleagues comprehensively at [facility] for cytoreductive surgery from April 2024 to September 2024. She did have a diagnostic laparoscopy which showed persistent disease in the abdomen, keeping this in mind she was thought to be not a candidate for further cytoreductive surgery and was sent back to medical oncology for subsequent palliative therapy. She had a restaging CT of the abdomen pelvis performed in October 2024 which showed extensive peritoneal carcinomatosis and progressive disease. Subsequently we started her on palliative systemic chemotherapy with capecitabine, irinotecan, Avastin, cycle 1 day 1 on December 01, 2024. After receiving her first cycle of chemotherapy she became progressively nauseated, had vomiting and was admitted to [facility]. She had another CT of the abdomen pelvis on December 11, 2024 which reveals progressive peritoneal carcinomatosis, hydronephrosis of the right side with ureteral obstruction. Medical oncology has been consulted to assist in management of this patient with metastatic colorectal cancer which is now progressing. Allergies Allergy/AdvReac Type Severity Reaction Status Date / Time Iodinated Contrast Media Allergy Hives Verified 11/25/24 17:28 Penicillins Allergy Unknown Verified 11/25/24 17:28 povidone-iodine Allergy Hives Verified 11/25/24 17:28 [From Betadine] Home Medications Medication Instructions Recorded Confirmed Type glimepiride 4 mg tablet 4 mg PO QAM 08/30/23 12/11/24 History simvastatin 40 mg tablet 40 mg PO QPM 08/30/23 12/11/24 History carvedilol 6.25 mg tablet 6.25 mg PO BID 11/02/23 12/11/24 History ondansetron HCl 8 mg tablet 8 mg PO DAILY PRN Nausea 11/25/24 12/11/24 History pioglitazone 30 mg tablet 30 mg PO DAILY 11/25/24 12/11/24 History tramadol 50 mg tablet 50 mg PO Q8H PRN pain #30 tabs 11/27/24 12/11/24 Rx metformin 1,000 mg tablet 1,000 mg PO BID 12/11/24 12/11/24 History oxycodone 20 mg tablet,crush 20 mg PO DAILY PRN Pain 12/11/24 12/11/24 History resistant,extended release 12 hr (OxyContin) Patient History Medical History Metastatic colon cancer to liver Colostomy in place Cataracts, bilateral History of kidney stones Diverticulosis DM type 2 (diabetes mellitus, type 2) HLD (hyperlipidemia) HTN (hypertension) Chronic deep vein thrombosis (DVT) "Small" LLE clot on recent doppler by PCP per patient, advised nothing further needed per patient Atrial fibrillation Single episode 08/2023 while hospitalized at [facility] for bowel resection > prescribed Eliquis/Coreg Surgical History Port-A-Cath in place (11/05/23) Insertion of Access Port with Fluoroscopy(Left) - Lynn Licona DO History of lithotripsy x2 H/O colonoscopy Hx of hysterectomy (2020) History of colon surgery Del Rosario's procedure with right salpingo-oophorectomy along with biopsies of the peritoneum,mesentery and liver per Dr. Rubio's note Family History Grandmother Colorectal cancer Father Hypertension Diabetes Social History Smoking Status: Never smoker Tobacco Type: Cigarettes Second Hand Exposure: No; Do You Dip or Chew Tobacco: No; Tobacco Cessation Education Requested by Patient: No Hx Alcohol Use: No Hx Substance Use: No Preferred Language: Greek Communication Ability: Effective [employer] Supervisor Required: No Beliefs That Will Affect Care: None marital status: Current Living Situation: Spouse Current Living Situation Comment: lives at home with current occupational status: retired How many Children do You have: 1 Other Information That Helps Us Care for You: No Feels Safe at Home: Yes Safety Concerns: Feels Safe At This Time during the past year weight has: decreased > 10 lbs Assistive Devices: Other Review of Systems Review of Systems: Nausea, vomiting, weight loss, poor appetite Constitutional: as per Subjective / HPI Eyes: as per Subjective / HPI Ear, Nose, Mouth, Throat: as per Subjective / HPI Respiratory: as per Subjective / HPI Cardiovascular: as per Subjective / HPI Gastrointestinal: as per Subjective / HPI Genitourinary: as per Subjective / HPI Musculoskeletal: as per Subjective / HPI Integumentary: as per Subjective / HPI Neurologic: as per Subjective / HPI Psychiatric: as per Subjective / HPI Physical Exam Constitutional: + ill appearing and average body habitus Eyes: PERRL, conjunctivae normal, anicteric sclerae ENMT: external ear and nose normal, oropharynx normal Neck: trachea midline, no thyromegaly Respiratory: normal respiratory effort, lungs clear to auscultation Cardiovascular: RRR, no murmur, no edema Gastrointestinal (Abdomen): normal bowel sounds, soft, nontender, no hepatosplenomegaly Musculoskeletal: no cyanosis or clubbing, extremities motor strength 5/5 Skin: no rashes, warm and dry Neurologic: patellar DTR's 2+ bilat, sensation intact Psychiatric: A+Ox3, euthymic affect Results & Data Vital Signs (Past 12 Hours) Vital Signs Temp Pulse Pulse Resp BP BP Pulse Ox 12/12/24 07:28 36.6 C 97 H 16 128/62 96 01/14/25 07:12 103 H 12/12/24 02:41 36.5 C 87 18 135/75 95 12/11/24 23:45 105 H 12/11/24 23:43 12/11/24 23:43 36.9 C 105 H 22 151/81 H 92 12/11/24 23:08 94 H 16 160/86 H 93 12/11/24 23:00 104 H 16 160/86 H 93 O2 Del Method 12/12/24 07:28 Room Air 12/12/24 07:12 12/12/24 02:41 Room Air 12/11/24 23:45 12/11/24 23:43 Room Air 12/11/24 23:43 Room Air 12/11/24 23:08 Room Air 12/11/24 23:00 Room Air (2) Urinary tract infection Hematuria presence: without hematuria Urinary tract infection type: site unspecified Qualified Code(s): N39.0 - Urinary tract infection, site not specified (4) Abdominal ascites Ascites type: malignant Qualified Code(s): R18.0 - Malignant ascites
[2024-12-12 13:18] LABS: Estimated Average Glucose 177 mg/dl; Hemoglobin A1C 7.8 % (4.5-5.6)
[2024-12-12] MEDS: HEPARIN 100 UNIT/ML 5ML FLUSH FLUSH PRN (14:28)
[2024-12-12] MEDS ORDERED: SODIUM CHLORIDE 0.9% 50 ML IV PRN (17:50)
[2024-12-12] MEDS ORDERED: SODIUM CHLORIDE 0.9% 100 ML IV PRN (17:50)
[2024-12-12] MEDS: SIMVASTATIN 40 MG TAB PO SCH (20:09)
[2024-12-12] MEDS: LOPERAMIDE HCL 2 MG CAP PO PRN (23:38)
[2024-12-13 07:11] LABS: Basophils # (auto) 0.01 K/uL (0.00-0.20); Basophils % (auto) 0.3 %; Eosinophils # (auto) 0.02 K/uL (0.00-0.50); Eosinophils % (auto) 0.6 %; Hematocrit (blood only) 28.1 % (37.0-47.0); Hemoglobin 9.2 g/dl (12.0-16.0); Immature Granulocytes # (auto) 0.01 K/uL (0.01-0.20); Immature Granulocytes % (auto) 0.3 %; Lymphocytes # (auto) 0.46 K/uL (1.20-3.40); Lymphocytes % (auto) 14.8 %; Mean Corpuscular Hemoglobin 27.2 pg (25.0-34.0); Mean Corpuscular Hgb Conc 32.7 g/dL (32.0-36.0); Mean Corpuscular Volume 83.1 fL (80.0-100.0); Monocytes # (auto) 0.13 K/uL (0.11-0.59); Monocytes % (auto) 4.2 %; Neutrophils # (auto) 2.48 K/uL (1.40-6.50); Neutrophils % (auto) 79.8 %; Platelet Count 159 K/uL (130-400); RDW Coefficient of Variation 14.8 % (11.5-14.5); RDW Standard Deviation 44.4 fL (36.4-46.3); Red Blood Count 3.38 M/uL (4.20-5.40); White Blood Count 3.11 K/ul (4.8-10.8)
[2024-12-13 07:32] LABS: Albumin Level 2.5 gm/dl (3.4-5.0); BUN Creatinine Ratio 24.1 (10-20); Calcium 7.9 mg/dl (8.6-10.3); Creatinine Clr Calc Pharmacy 61.9 ml/min; Magnesium 1.7 mg/dl (1.7-2.4); Phosphorus 2.4 mg/dl (2.5-4.9); Potassium 3.7 mmol/L (3.5-5.1)
[2024-12-13] MEDS ORDERED: POTASSIUM PHOS 3 MMOL/1 ML INFUSION IV STA (07:48)
[2024-12-13] MEDS: MAGNESIUM SULFATE / D5W 1 GM/100 ML BAG IV ONE (08:45)
[2024-12-13] MEDS: POT PHOSPHATE MONOBASIC W/ SOD TAB PO SCH (08:45)
[2024-12-13 15:28] VITALS: BP 120/75; PULSE 93; RESP 20; TEMP 98.4; O2SAT 95
--- NOTE | 2024-12-13 16:53 | Electrocardiogram Report ---
Test Reason : Blood Pressure : */* mmHG Vent. Rate : 104 BPM Atrial Rate : 104 BPM P-R Int : 136 ms QRS Dur : 74 ms QT Int : 326 ms P-R-T Axes : 18 -25 32 degrees QTcB Int : 428 ms Sinus tachycardia with Premature atrial complexes Possible Anterolateral infarct (cited on or before 25-Nov-2024) Abnormal ECG When compared with ECG of 25-Nov-2024 14:05, Premature atrial complexes are now Present Confirmed by Teofilo Vasques ([id number]) on 12/13/2024 4:52:58 PM Referred By: REFERRED SELF Confirmed By: Teofilo Vasques
[2024-12-13] MEDS: CEFEPIME 2000MG 2,000 MG/20 ML SYR IV SCH (16:54)
--- NOTE | 2024-12-13 17:01 | Discharge Summary ---
Discharge Summary Date of Service December 13, 2024 Principal Dx & Hospital Course #1 = Principal Diagnosis (1) Nausea & vomiting: (2) Influenza A: (3) Colon cancer metastasized to multiple sites: (4) Pneumonia: Plan This patient is a 64-year-old female with a history of metastatic stage IV colon cancer s/p colectomy and colostomy and 6 months of chemotherapy earlier this year/now on 2nd line chemotherapy, DM 2, HTN, HL, kidney stones, DVT on Eliquis, lone atrial fibrillation who p/w decreased oral intake associated with N/V and reflux type symptoms x 1 day. She reports that she was having persistence or worsening of nausea and decreased oral intake since she began new daily po chemotherapy on 12/01/2024. Also w/ SOB and HARRISON x 1-2 days with generalized weakness[address] CT scan suggests increasing carcinomatosis, and respiratory BioFire positive for influenza A with LLL PNA on CXR. #Intractable N/V along with some diarrhea-secondary to influenza A, worsening carcinomatosis, and recent chemotherapy-now completely resolved, tolerating regular diet.Received IV fluids, Zofran as needed Started Protonix and this helped-continue on this on discharge Continue Zofran as needed at home Continue Imodium as needed for diarrhea associated with chemotherapy #Influenza A/possible secondary bacterial LLL pneumonia in immunocompromised patient on chemotherapy -On room air, has a mild productive cough -Continue Tamiflu to finish out a 5-day course at home; received 2 days of IV cefepime here and will discharge home on 5 more days of levofloxacin -Follow-up chest x-ray in 4 weeks to ensure resolution of pneumonia -Not on atypical coverage but not likely necessary at this time -No blood cultures drawn #Hypomagnesemia/hypophosphatemia-secondary to GI losses and poor p.o. intake Replaced and improved Follow labs as an outpatient with oncology #Hyponatremia-mostly pseudohyponatremia from hyperglycemia, much improved -Follow BMP as an outpatient, continue blood glucose control #Anemia Hemoglobin low at 7.6 , MCV 83. Baseline hemoglobin 9.0 from 6 months ago and she did recently have surgery 2 months ago which likely had some blood loss No bleeding from anywhere that she has noticed B12, folate, TSH levels recently normal. Fe levels low-received IV iron last admission Now on chemotherapy which is worsening her counts -Oncology recommends transfusion of PRBCs to keep hgb>8--> consented and gave 1 unit PRBCs -Hemoglobin up to 9.2 on day of discharge and she is feeling much improved -Follow CBC as an outpatient #Metastatic colon CA, with worsening carcinomatosis- Patient wishes to talk with Dr. Liz regarding changing from oral chemotherapy to pump based therapy Abdominal pain likely secondary to carcinomatosis and worsening likely malignant ascites. This has been ongoing for 2 months since her laparotomy the end of August at [place] for aborted reversal of colostomy after pelvic mass was found. She has developed omental caking and carcinomatosis as well as mediastinal lymphadenopathy, ascites, and pleural effusions on CT scan since that time. Just started new po therapy 12/01/24 Had paracentesis last admission which conformed malignant ascites-patient declines to have repeat paracentesis at this time as she is not significantly uncomfortable INR elevated at 2.0-discussed with oncology-likely low level DIC from cancer, no bleeding from anywhere -Continue home tramadol as needed for pain; she is no longer taking OxyContin- discontinued from med list -Consult Oncology [id number] as outpatient #DM2 Hgb A1c 6.6% from 10/2024. She is on multiple oral medications at home. With blood sugars in the 300s on arrival due to stress response-treated with Lantus and NovoLog here -Okay to resume home metformin, glimepiride, pioglitazone on discharge, no need for insulin at home #HTN/HL Blood pressures here are controlled -recently stopped lisinopril for CHIN/hyperkalemia last admission -Okay to continue simvastatin DVT prophylaxis-with a history of DVT and has ongoing metastatic cancer-resume home Eliquis 2.5 Mg p.o. twice daily and sent a prescription for a month supply with 2 refills to her pharmacy Disposition-discharge to home Discussed all care with at the bedside on the day of discharge Notes For Next Care Provider Follow CBC, BMP, phosphorus, magnesium as an outpatient with hematology/oncology in 1 week Medication Changes From Visit Added Tamiflu 75 Mg p.o. twice daily x 3 more days Added levofloxacin 750 mg p.o. daily x 5 more days Discontinued OxyContin from her home med list as she is not taking this Admission HPI Per Admitting Provider The patient is a 64-year-old female with past medical history including iron deficiency anemia, colon cancer metastasized to multiple sites, UTI, abdominal ascites status post recent paracentesis, acute kidney injury, hypertension, diabetes mellitus, and hyperlipidemia. She presents to the emergency department with complaint of decreased oral intake secondary to nausea, vomiting and worsening reflux worsened earlier in the day today and has progressed. She had no symptomatic relief with Zofran ODT, but has had some improvement with IV fluids, IV Zofran in the ED this evening. CT scan suggests increasing carcinom atosis, and respiratory BioFire is positive for influenza A Discharge Exam Constitutional WD/WN, vitals as above Respiratory normal respiratory effort, lungs clear to auscultation Cardiovascular RRR, no murmur, no edema Gastrointestinal (Abdomen) Inspection/Auscultation: normal bowel sounds; + abdomen abnormal to inspection (Colostomy bag in place) Percussion/Palpation: abdomen soft; abdomen nontender Psychiatric A+Ox3, euthymic affect Discharge Plan Discharge Items Patient Disposition: Home - Self-Care Reason For Visit: INFLUENZA A, LLL PNEUMONIA, N/V Discharge Diagnosis: Influenza A Community acquired pneumonia Intractable nausea/vomiting/diarrhea Dehydration Chemotherapy-induced anemia Condition on Discharge: Fair Activity: As commented below Lifting: Gradually increase as tolerated Bathing: No limitations Exercise/Sports: Gradually increase as tolerated Non-emergency contact: Primary Care Provider and Oncologist Call non-emergency contact if: you have any medication questions and your symptoms worsen Follow-up/Referrals: Jese William [Primary Care Provider] - (Follow-up within 1 to 2 weeks.) Luis Alfredo Liz MD [Physician] - (Follow-up within 1 week) Diet: Regular Addtl Attending Provider Instructions: You were admitted for influenza A which caused nausea, vomiting, and pneumonia. Please finish out the courses of Tamiflu and the antibiotic called levofloxacin for the flu and pneumonia. Some of the nausea, vomiting, and diarrhea may also be secondary to your recent chemotherapy course. You should definitely continue on the Eliquis to help prevent blood clots in the future. A new prescription for this has been sent for you. You were given a blood transfusion while you were here. Please follow-up with your oncologist within 1 week to repeat blood work and decide on next course of action with your chemotherapy. You do not need to finish out the chemotherapy pill. You were started on Protonix which is an antacid which may help with some of your reflux heartburn issues you are having when you came in. Pending Studies at Discharge: No Stand-Alone Forms: My [facility], Smoking Cessation Medications and DC Order Prescriptions: New pantoprazole 40 mg Tablet,Delayed Release (Dr/Ec) 40 mg PO BID Qty: 30 0RF oseltamivir [Tamiflu] 75 mg Capsule 75 mg PO BID Qty: 6 0RF levofloxacin 750 mg tablet 750 mg PO DAILY 5 Days Qty: 5 0RF loperamide 2 mg Capsule 2 mg PO Q4H PRN (Reason: Diarrhea) Qty: 30 0RF Continued carvedilol 6.25 mg tablet 6.25 mg PO BID Rx Instructions: must administer with a meal/food simvastatin 40 mg tablet 40 mg PO QPM glimepiride 4 mg Tablet 4 mg PO QAM Rx Instructions: administer with breakfast ondansetron HCl 8 mg tablet 8 mg PO DAILY PRN (Reason: Nausea) pioglitazone 30 mg tablet 30 mg PO DAILY tramadol 50 mg Tablet 50 mg PO Q8H PRN (Reason: pain) Qty: 30 0RF metformin 1,000 mg tablet 1,000 mg PO BID Eliquis 2.5 mg tablet 2.5 mg PO BID Qty: 60 2RF Discontinued oxycodone [OxyContin] 20 mg tablet,oral only,ext.rel.12 hr 20 mg PO DAILY PRN (Reason: Pain) Discharge Orders: Discharge Order (Routine); Ordered 12/13/24 Ordered By: Sear Nieto/Other Patient Handouts: High Blood Sugar (Hyperglycemia), Managing Type 2 Diabetes Admission Data Admit Date/Time: 12/11/24 21:52 Attending Provider: Sera Wilson Admit Provider: Nav Jackson Primary Care Provider: Jese William Other Providers: Nav Jackson; Luis Alfredo Liz Hospital Stay Data Consultations 12/11/24 20:45 ED Decision to Admit Stat 12/11/24 23:43 Consult Hematology Routine Diagnostic Imagining Performed 12/11/24 18:02 CT Abd and Pelvis [CT abd pelvis wo con] Stat Pending Results Patient Have Any Pending Studies at Discharge: No Discharge Instructions Given to Patient (Per Discharging Provider) You were admitted for influenza A which caused nausea, vomiting, and pneumonia. Please finish out the courses of Tamiflu and the antibiotic called levofloxacin for the flu and pneumonia. Some of the nausea, vomiting, and diarrhea may also be secondary to your recent chemotherapy course. You should definitely continue on the Eliquis to help prevent blood clots in the future. A new prescription for this has been sent for you. You were given a blood transfusion while you were here. Please follow-up with your oncologist within 1 week to repeat blood work and decide on next course of action with your chemotherapy. You do not need to finish out the chemotherapy pill. You were started on Protonix which is an antacid which may help with some of your reflux heartburn issues you are having when you came in. Total Time Total Time Spent Total Time Spent (In Minutes): 35 minutes Total Time Includes: Examination of the Patient, Discharge Planning, Medication Reconciliation and Communication With Other Providers Coding Level of Care Code 98970 INP/OBS DISCH >30 MIN Diagnoses Nausea & vomiting R11.2 Influenza A J10.1 Colon cancer metastasized to multiple sites C18.9 Pneumonia J18.9
[2024-12-13] MEDS ORDERED: PANTOprazole 40 MG TAB PO SCH (21:00)
[2024-12-13] MEDS ORDERED: OSELTAMIVIR PHOSPHATE 75 MG CAP PO SCH (21:00)
== END 2024-12-13 17:45 | disposition home or self-care (01) | DRG 374 ==
LOC: ED 16:21 → SUATTDRO 21:52 → 2E 21:52

== ENCOUNTER 2024-12-17 04:12 | Inpatient (IN) ==
[2024-12-17 05:40] LABS: Albumin Globulin Ratio 0.8 (0.9-2); Albumin Level 2.5 gm/dl (3.4-5.0); BUN Creatinine Ratio 26.3 (10-20); Bilirubin,Total 0.3 mg/dl (0.2-1.0); Calcium 9.3 mg/dl (8.6-10.3); Globulin 3.2 gm/dl (2.5-4.0); Thyroid Stimulating Hormone 1.63 uIu/ml (0.300-4.500); Total Protein 5.7 gm/dl (6.0-8.3)
[2024-12-17 05:46] LABS: Hematocrit (blood only) 29.7 % (37.0-47.0); Hemoglobin 9.8 g/dl (12.0-16.0); Mean Corpuscular Hemoglobin 27.5 pg (25.0-34.0); Mean Corpuscular Volume 83.4 fL (80.0-100.0); Mean Platelet Volume 10.1 fL (9.4-12.4); Nucleated RBC % (auto) 2.6 %; Platelet Count 313 K/uL (130-400); RDW Standard Deviation 45.3 fL (36.4-46.3); Red Blood Count 3.56 M/uL (4.20-5.40)
[2024-12-17 05:47] LABS: Basophils # (auto) 0.01 K/uL (0.00-0.20); Basophils % (auto) 0.3 %; Dohle Bodies 1+; Echinocytes 1+; Eosinophils # (auto) 0.06 K/uL (0.00-0.50); Eosinophils % (auto) 1.5 %; Immature Granulocytes # (auto) 0.27 K/uL (0.01-0.20); Immature Granulocytes % (auto) 6.9 %; Lymphocytes # (auto) 0.35 K/uL (1.20-3.40); Monocytes # (auto) 0.33 K/uL (0.11-0.59); Monocytes % (auto) 8.5 %; Neutrophils # (auto) 2.88 K/uL (1.40-6.50); Neutrophils % (auto) 73.8 %; Polychromasia 1+; Toxic Granulation 1+
--- NOTE | 2024-12-17 06:22 | XRay Report ---
EXAM: XR chest 1V portable CLINICAL HISTORY: WEAKNESS SDM TECHNIQUE: An X-ray image of the chest is obtained in AP projection. COMPARISON: 12/11/2024 FINDINGS: Pulmonary Parenchyma: Bilateral mild prominent interstitial linings No evidence of consolidation, collapse, or focal opacities. No pulmonary nodules are identified. Bilateral costophrenic angles are obscured, small pleural effusions or pleural thickening cannot be ruled out Heart and Mediastinum: Heart size and shape are normal. No mediastinal widening or masses. No hilar or mediastinal lymphadenopathy. Bony Thorax: Degenerative changes of spine and bilateral glenohumeral joints Soft Tissues: Soft tissues overlying the chest wall are unremarkable. Lines: A left approach central venous line is noted with tip noted in cavoatrial junction IMPRESSION: 1. Bilateral mild prominent interstitial linings 2. No acute cardiopulmonary abnormalities are identified. 3. Bilateral costophrenic angles are obscured, small pleural effusions or pleural thickening cannot be ruled out 4. A left approach central venous line is noted with tip noted in cavoatrial junction (satisfactory) 5. Findings remain stable since prior study Electronically signed by Soheila Whitt 12-17-2024 06:21 AM
[2024-12-17] MEDS: SODIUM CHLORIDE 0.9% 1,000 ML IV ONE ×2 (07:53→12:35)
--- NOTE | 2024-12-17 07:57 | History & Physical Report ---
Date of Service December 17, 2024 Assessment & Plan (1) Stage III pressure ulcer of sacral region: (2) Atrial fibrillation with RVR: (3) CHIN (acute kidney injury): (4) Colon cancer metastasized to multiple sites: Golden Cash is a 64-year-old female PMH of diabetes mellitus, colon cancer with mets, pelvic cancer, and MADHAV. She presented via EMS on 12/17 for pain due to a pressure ulcer at her coccyx. has been applying a triple antibiotic cream and dressing it regularly, but reports her skin is very loose and continues to tear due to significant weight loss. No purulent drainage from the ulcer. The pain was so significant, that it woke her from sleep at 2 AM this morning, and he decided to come to the hospital. Additionally, significant N/V at home (likely secondary to cancer / treatments) and unable to keep down food or pills recently. #Stage III sacral wound, POA Wound care nurse consult appreciated Daily wound care Turn q2h No purulent drainage; no leukocytosis or fever on arrival; will defer abx IV acetaminophen and morphine as needed for pain control #A fib RVR ADDENDUM: Patient went into A-fib RVR at 170 bpm in the ED Patient reports she did had 1 episode of prior A-fib RVR prior to her surgery 4 years ago She is currently on Eliquis 2.5mg po bid for history of chronic DVT, not A-fib Will hold Eliquis for now due to N/V Lovenox 1 mg/kg q12h Lopressor 2.5 mg IV x 2 without results in the ED Cardiology consult appreciated - Amiodarone bolus + drip #CHIN/hypovelmia/dehydration BUN 35, creatinine 1.33 (baseline around 0.8) Suspect prerenal in the setting of dehydration Avoid nephrotoxic agents for possible NSS 1000 mL IV x 1 in the ED Continue NSS at 80mL/hr x 2 L and reassess #Nausea & Vomiting Patient currently tolerating liquids, but not solids, and is struggling to keep down pills Poor output from colostomy No abd pain on exam KUB ordered to look for potential obstruction, keep NPO if signs of ileus or obstruction IV antiemetics as needed Protonix p.o. --> IV BID #T2DM Last A1c at 7.5% on 12/12/2024 Glucose 341 on admission Anion gap elevated at 13 Patient reports she has had difficulty keeping down her diabetic medications over the past several days Insulin 5u IV ordered with 1 hour BSG recheck remaining in 300s--> start Lantus 8 units daily SSI; with target BSG range 110-140mg/dL, CF 50, carb ratio 15 NPO for N/V, advance to T2DM diet as tolerated BSG q6h while NPO Adjust regimen as needed #Chronic DVT Hgb 9.8 on arrival Hold Eliquis (as above) due to N/V, bridge with Lovenox 1mg/kg SQ bid Clinically, mild bleeding from sacral wound, but no other signs of active bleeding on arrival Note: Patient has PRBC transfusions in the past for low hemoglobin levels Trend H&H #H/o recent Influenza A Tested positive on 12/11 Symptoms have largely improved since that time Normally, droplet precautions for 5 days, however patient does meet immunocompromise status given her chemotherapy so isolation is longer Cepheid ordered, pending Will add on droplet precautions pending results #Colon cancer with metastasis to multiple sites Follows with [facility] outpatient Plans to restart chemotherapy next week Disposition: Admit to PCU telemetry DNR/DNI NPO, advance to T2DM diet as tolerated VTE PPx: Lovenox 1 mg/kg q12h History of Present Illness Chief Complaint: Sacral pain Primary Care Provider: Jese Martinjulieth Cash is a 64-year-old female PMH of diabetes mellitus, colon cancer with mets, pelvic cancer, and MADHAV. She presented via EMS on 12/17 for pain due to a pressure ulcer at her coccyx. Patient's (Dallin) is at bedside and provides history, as patient reports difficulty talking. reports that the patient has not been able to eat or drink over the past few days, and has been feeling very weak; recent [place] hospitalization 12/11 - 12/13 for influenza A. Whenever patient tries to eat or take her pills, she throws them back up. She has been tolerating fluids such as water and juice. Patient follows with the CCP for her metastatic colon cancer; she was previously on oral chemo, but got sick after taking 10 of the 14-day trial. reports they plan to restart chemo next week; pump instead of pills. Patient did not take her regular morning medicine this morning; she received new medications upon discharge, but has been unable to keep them down. The only thing she has managed to keep down on her Protonix and nausea medication (Zofran). She was transfused 1 unit PRBCs last visit. denies any recent falls at home, or injuries. Patient is mainly wheelchair bound at this point, but did ambulate with a walker twice this week. Their main concern at this time is the bleeding sore on her coccyx. has been applying a triple antibiotic cream and dressing it regularly, but reports her skin is very loose and continues to tear due to significant weight loss. No purulent drainage from the ulcer. The pain was so significant, that it woke her from sleep at 2 AM this morning, and he decided to come to the hospital. Patient rates her pain 8/10 at present, and describes as a constant pain. She did take tramadol last night around 11 PM, which helped a little bit. Both patient and patient's have not been sleeping well over the past 3 nights. denies any fevers at home, has been checking temperature regularly, and has not gotten above 97.1 F. Patient does have a history of a blood clot (DVT) along time ago; despite swelling in her legs, reports no injuries or erythema, and she reports good compliance with her Eliquis. Patient is colostomy status, and reports minimal stool output due to not eating. No smoking, tobacco use, or recent alcohol use. Patient is hypertensive 144/80 and in sinus tachycardia at 109 bpm at admission; vitals otherwise stable. ED course: NSS 1000 mL IV ROS obtained from both patient and patient's : Patient endorses coccyx pain, unstable on feet, lightheadedness when standing, HARRISON, nausea and vomiting with food and pills, swelling in the legs, and decreased appetite. Patient denies fever, chills, night-sweats, chest pain, pleuritic CP, SOB at rest, abdominal pain, or diarrhea. Allergies Allergy/AdvReac Type Severity Reaction Status Date / Time Iodinated Contrast Media Allergy Hives Verified 11/25/24 17:28 Penicillins Allergy Unknown Verified 11/25/24 17:28 povidone-iodine Allergy Hives Verified 11/25/24 17:28 [From Betadine] Home Medications Medication Instructions Recorded Confirmed Type glimepiride 4 mg tablet 4 mg PO QAM 08/30/23 12/17/24 History simvastatin 40 mg tablet 40 mg PO QPM 08/30/23 12/17/24 History carvedilol 6.25 mg tablet 6.25 mg PO BID 11/02/23 12/17/24 History ondansetron HCl 8 mg tablet 8 mg PO DAILY PRN Nausea 11/25/24 12/17/24 History pioglitazone 30 mg tablet 30 mg PO DAILY 11/25/24 12/17/24 History tramadol 50 mg tablet 50 mg PO Q8H PRN pain #30 tabs 11/27/24 12/17/24 Rx metformin 1,000 mg tablet 1,000 mg PO BID 12/11/24 12/17/24 History apixaban 2.5 mg tablet (Eliquis) 2.5 mg PO BID #60 tabs 12/13/24 12/17/24 Rx levofloxacin 750 mg tablet 750 mg PO DAILY 5 days #5 tabs 12/13/24 12/17/24 Rx loperamide 2 mg capsule 2 mg PO Q4H PRN Diarrhea #30 caps 12/13/24 12/17/24 Rx pantoprazole 40 mg tablet,delayed 40 mg PO BID #30 tabs 12/13/24 12/17/24 Rx release Past Med/Surg History Problem List (Updated 12/17/24 @ 14:10 by Zamzam Summers MD) Adult failure to thrive (Acute) CHIN (acute kidney injury) (Acute) Influenza A Atrial fibrillation with RVR Stage III pressure ulcer of sacral region Swelling of both lower extremities (Acute) Colostomy in place Chronic deep vein thrombosis (DVT) "Small" LLE clot on recent doppler by PCP per patient, advised nothing further needed per patient DM type 2 (diabetes mellitus, type 2) Sacral wound Hyponatremia CHIN (acute kidney injury) Lower extremity pain, bilateral Electrolyte abnormality Anemia Pneumonia Hyperglycemia due to diabetes mellitus Hyperglycemia (Acute) Hypomagnesemia (Acute) Nausea & vomiting (Acute) Influenza A (Acute) Iron deficiency anemia Colon cancer metastasized to multiple sites Pleural effusion (Acute) Abdominal ascites (Acute) Encounter for pre-operative examination Medical History Metastatic colon cancer to liver Colostomy in place Cataracts, bilateral History of kidney stones Diverticulosis DM type 2 (diabetes mellitus, type 2) HLD (hyperlipidemia) HTN (hypertension) Chronic deep vein thrombosis (DVT) "Small" LLE clot on recent doppler by PCP per patient, advised nothing further needed per patient Atrial fibrillation Single episode 08/2023 while hospitalized at [facility] for bowel resection > prescribed Eliquis/Coreg Surgical History Port-A-Cath in place (11/05/23) Insertion of Access Port with Fluoroscopy(Left) - Lynn Licona DO History of lithotripsy x2 H/O colonoscopy Hx of hysterectomy (2020) History of colon surgery Del Rosario's procedure with right salpingo-oophorectomy along with biopsies of the peritoneum,mesentery and liver per Dr. Rubio's note Family History Grandmother Colorectal cancer Father Hypertension Diabetes Social History Smoking Status: Never smoker Tobacco Type: Cigarettes Second Hand Exposure: No; Do You Dip or Chew Tobacco: No; Hx Alcohol Use: No Hx Substance Use: No Preferred Language: Monegasque Communication Ability: Effective Tobacco Conditioner Required: No Beliefs That Will Affect Care: None marital status: Current Living Situation: Spouse Current Living Situation Comment: lives at home with current occupational status: retired How many Children do You have: 1 Feels Safe at Home: Yes during the past year weight has: decreased > 10 lbs Assistive Devices: Denture - Upper, Denture - Lower and Glasses Review of Systems 2 Review of Systems: See HPI above Physical Exam 2 Physical Exam: General: no acute distress; lethargic; at bedside; non-toxic appearing; frail appearing; cooperative; SpO2 95% on RA HEENT: normocephalic, atraumatic; no scleral icterus; PERRLA; vision and hearing intact Neck: supple; trachea midline Skin: warm, dry without signs of tenting; no cyanosis; no rashes, bruising, lesions, or erythema noted CV: chest wall NTP; port on the left upper chest wall without signs of erythema, swelling, or infection; RR, mildly tachycardic around 100 bpm; S1/S2 normal; no murmurs/rubs/gallops; pulses intact & symmetric at radial, DP, and PT Lungs: no acute respiratory distress; symmetrical chest wall expansion; clear breath sounds across all lung boswell w/o adventitious sounds; no wheezing ABD: Soft, NTP in all 4 quadrants; colostomy in place without signs of erythema or drainage; no stool in bag; BS present; no rebound/guarding; no distention MSK: no tics or fasciculations; +2 pitting edema in the lower extremities bilaterally, nonerythematous Sacrum: sacral ulcer (?stage III) with bleeding (see photo below); no purulent drainage Neuro: A&Ox3; patient reports difficulty speaking, but mainly from dry mouth/weakness; nods or shakes her head to most questions; appropriate response to questioning; normal mood and affect; fluent speech; no focal deficits appreciated; patient reports sensation is intact and symmetric in the lower extremities bilaterally Results & Data Results & Data Vital Signs (Past 12 Hours) Vital Signs Temp Pulse Pulse Resp BP BP Pulse Ox 12/17/24 07:00 109 H 14 144/80 H 95 12/17/24 05:59 105 H 17 133/76 96 12/17/24 05:40 108 H 12/17/24 04:49 96 12/17/24 04:44 36.8 C 100 H 16 135/73 96 O2 Del Method 12/17/24 07:00 Room Air 12/17/24 05:59 Room Air 12/17/24 05:40 12/17/24 04:49 Room Air 12/17/24 04:44 Room Air Laboratory Results Abnormal lab results 12/17/24 Range/Units 04:48 WBC 3.90 L (4.8-10.8) K/ul RBC 3.56 L (4.20-5.40) M/uL Hgb 9.8 L (12.0-16.0) g/dl Hct 29.7 L (37.0-47.0) % RDW Coeff of Jennifer 15.0 H (11.5-14.5) % Lymph # (Auto) 0.35 L (1.20-3.40) K/uL Immature Gran # (Auto) 0.27 H (0.01-0.20) K/uL Sodium 130 L (136-145) mmol/L Carbon Dioxide 17 L (21-32) mmol/L Anion Gap 13 H (3-11) BUN 35 H (6-23) mg/dl Creatinine 1.33 H (0.6-1.2) mg/dl BUN/Creatinine Ratio 26.3 H (10-20) Glucose 374 H* (70-99(Fasting)) mg/dl AST 7 L (13-39) U/L Total Protein 5.7 L (6.0-8.3) gm/dl Albumin 2.5 L (3.4-5.0) gm/dl Albumin/Globulin Ratio 0.8 L (0.9-2) Diagnostic Findings Chest X-Ray 12/17/24 04:48 EXAM: XR chest 1V portable CLINICAL HISTORY: WEAKNESS SDM TECHNIQUE: An X-ray image of the chest is obtained in AP projection. COMPARISON: 12/11/2024 FINDINGS: Pulmonary Parenchyma: Bilateral mild prominent interstitial linings No evidence of consolidation, collapse, or focal opacities. No pulmonary nodules are identified. Bilateral costophrenic angles are obscured, small pleural effusions or pleural thickening cannot be ruled out Heart and Mediastinum: Heart size and shape are normal. No mediastinal widening or masses. No hilar or mediastinal lymphadenopathy. Bony Thorax: Degenerative changes of spine and bilateral glenohumeral joints Soft Tissues: Soft tissues overlying the chest wall are unremarkable. Lines: A left approach central venous line is noted with tip noted in cavoatrial junction IMPRESSION: 1. Bilateral mild prominent interstitial linings 2. No acute cardiopulmonary abnormalities are identified. 3. Bilateral costophrenic angles are obscured, small pleural effusions or pleural thickening cannot be ruled out 4. A left approach central venous line is noted with tip noted in cavoatrial junction (satisfactory) 5. Findings remain stable since prior study Electronically signed by Soheila Whitt 12-17-2024 06:21 AM Code Status & VTE Plan Code Status DNR/DNI VTE Prophylaxis Plan VTE Prophylaxis will be ordered: Yes Supervising Physician Co-Signing Physician Notes HOME Supervision Note: I personally saw and examined the patient. I verified all shepherd points and agree with HOME Gilman with the following exceptions and/or additions: S-patient here with generalized weakness and intractable vomiting poor appetite, very little p.o. intake since discharge from the hospital earlier this week for influenza A and intractable nausea/vomiting. She denies significant abdominal pain. She has mild cough. No chest pain or lightheadedness no fevers or chills. She was unable to complete the course of antibiotics with levofloxacin last admission. She came in today because her noticed the sacral wound had opened up on her bottom and was having severe pain. She has had no output in her bag but has not eaten for 2 days. Prior to that, she reports having massive diarrhea that was leaking from her colostomy. In the ER, shortly after admission, she went to a rapid A-fib with rates in the 170s. Her blood pressure was stable and she was given IV Lopressor x 2. I discussed her care with cardiology who recommended IV amiodarone bolus and drip. Patient declines to have a peripheral IV placed and therefore she was only able to get the amiodarone bolus but not the drip. She is getting IV magnesium replacement and IV fluids for hydration. O- Vitals reviewed Gen: AAOx3, NAD, appears chronically HEENT: Anicteric sclerae, EOMI CV: Irregularly irregular, tachycardic no mgr nl S1S2 Pulm: CTAB no wcr Abd: +BS soft positive palpable masses/firmness, colostomy bag in place with small amount of liquid Ext: 1+ edema ankles and legs bilaterally Skin: No rashes, warm/dry Neuro: Full strength throughout CBC, CMP, respiratory BioFire, magnesium, TSH, UA reviewed ECG reviewed KUB reviewed A/T-86-fidi-old female here with metastatic colon cancer on chemotherapy, s/p colectomy and colostomy and 6 months of chemotherapy earlier this year/now on 2nd line chemotherapy, DM 2, HTN, HL, kidney stones, DVT on Eliquis, lone atrial fibrillation who p/w nausea/vomiting, generalized weakness, sacral wound stage III with pain, and rapid atrial fibrillation. -Admit to PCU, amiodarone bolus and drip if patient will be accepting of getting peripheral IV, make Lopressor IV scheduled with hold parameters. Giving Lovenox while n.p.o. and not taking Eliquis.. Cardiology consult appreciated -IV fluids, electrolyte replacement ongoing -No need for antibiotics as pneumonia cleared on chest x-ray and sacral wound not appearing infected -Wound care consult placed for sacral wound -Antiemetics, keep n.p.o. for now until able to tolerate p.o. with less nausea/vomiting. KUB with mildly distended loops of bowel but no obstruction. Give IV Protonix PG Care Time/CCT Total # of Minutes Spent Total Time Spent with Patient: Total time spent is greater than 50% in coordination of care (as documented) at patient's floor/unit and/or counseling patient: Coding [place] [id number] INT INP/OBS CARE 3/75MIN Patient Type Established Medical Decision Making High Complexity Diagnoses Stage III pressure ulcer of sacral region L89.153 Atrial fibrillation with RVR I48.91 CHIN (acute kidney injury) N17.9 Colon cancer metastasized to multiple sites C18.9
--- NOTE | 2024-12-17 08:06 | Emergency Department Note ---
Impression & Plan CHIN (acute kidney injury), Adult failure to thrive, Swelling of both lower extremities ED Provider Note NAME: ZAY RAMEY AGE: 64 SEX: F : 1960 ARRIVES VIA: Ambulance INFORMANT: Patient, ED PROVIDER(S): Zamzam Summers MD CHIEF COMPLAINT: Weakness, buttocks pain HPI: This is a 54-year-old female presenting for weakness and buttock pain. Patient is with her who provides most of the history. Patient has been essentially bedbound with very limited ability to get out of bed. She is weak in bilateral lower extremities with lower extremity swelling. She notes she has had new bedsores to her buttocks. She history of colon and pelvic cancer. She has not been eating or drinking much. She notes no nausea or shortness of breath at this time. She does have shortness of breath with ambulation specifically. Otherwise no fevers, chills. Patient started recent oral chemotherapy and has since declined since then. ROS: See above HPI for pertinent positives & negatives. A total of 10 systems reviewed and were otherwise negative. PAST MEDICAL HISTORY: See Below PAST SURGICAL HISTORY: See Below FAMILY HISTORY: See Below SOCIAL HISTORY: See Below HOME MEDICATIONS: See Below ALLERGIES: See Below VITALS: See Below PHYSICAL EXAMINATION: General: Chronically ill-appearing, weak, dry mucous membranes Head: Normocephalic and atraumatic Eyes: Normal inspection, extraocular muscles intact Ear, nose, throat: Normal external exam Neck: Normal range of motion Respiratory: lungs clear to auscultation bilaterally Cardiovascular: Regular rate/rhythm, no murmur GI: soft, nontender, no guarding or rebound Extremities: nontender, moves all extremities Neuro: The patient awake and alert, appropriately conversive, no focal deficits, symmetric faces Skin: Warm, dry, and intact MEDICAL DECISION MAKING: This is a 64-year-old female present for weakness/buttocks pain. Patient does have a decubitus ulcer on her buttocks, stage I. Overall she appears to be mostly bedbound due to weakness. She appears dehydrated clinically. -Blood work is in office triage showing anemia at 9.8 otherwise. Elevation 1.33, previously 0.87, this is representing CHIN. She also has bilateral lower extremity edema. There is toxic cannulation noted on the CBC. -Chest Xray independently interpreted by me showing no pneumothorax, focal opacity, or pleural effusions. -Patient will require admission due to CHIN, dehydration, failure to thrive. -While patient was in bed hold down to the emergency department, patient did go into atrial fibrillation with RVR. Rates as high as 175. Care discussed with inpatient team who will evaluate the patient. -Revert maneuver tried without success Differential diagnosis: Decubitus ulcers, failure to thrive, dehydration, CHIN, Independent History obtained from: Diagnostics interpreted by me: ECG: ECG independently interpreted by me with atrial fibrillation with RVR, rate of 170, normal QRS, normal QTc, no ST segment elevations consistent with STEMI criteria Cardiac Monitoring: An order was placed for continuous cardiac monitoring. The monitor shows a rate of 170 with atrial fibrillation rhythm. Past Med/Surg History Problem List (Updated 12/17/24 @ 14:10 by Zamzam Summers MD) Adult failure to thrive (Acute) CHIN (acute kidney injury) (Acute) Influenza A Atrial fibrillation with RVR Stage III pressure ulcer of sacral region Swelling of both lower extremities (Acute) Colostomy in place Chronic deep vein thrombosis (DVT) "Small" LLE clot on recent doppler by PCP per patient, advised nothing further needed per patient DM type 2 (diabetes mellitus, type 2) Sacral wound Hyponatremia CHIN (acute kidney injury) Lower extremity pain, bilateral Electrolyte abnormality Anemia Pneumonia Hyperglycemia due to diabetes mellitus Hyperglycemia (Acute) Hypomagnesemia (Acute) Nausea & vomiting (Acute) Influenza A (Acute) Iron deficiency anemia Colon cancer metastasized to multiple sites Pleural effusion (Acute) Abdominal ascites (Acute) Encounter for pre-operative examination Medical History Metastatic colon cancer to liver Colostomy in place Cataracts, bilateral History of kidney stones Diverticulosis DM type 2 (diabetes mellitus, type 2) HLD (hyperlipidemia) HTN (hypertension) Chronic deep vein thrombosis (DVT) "Small" LLE clot on recent doppler by PCP per patient, advised nothing further needed per patient Atrial fibrillation Single episode 08/2023 while hospitalized [place] [facility] [place] > prescribed Eliquis/Coreg Surgical History Port-A-Cath in place (11/05/23) Insertion of Access Port with Fluoroscopy(Left) - Lynn Licona DO History of lithotripsy x2 H/O colonoscopy Hx of hysterectomy (2020) History of colon surgery Del Rosario's procedure with right salpingo-oophorectomy along with biopsies of the peritoneum,mesentery and liver per Dr. Rubio's note Family History Grandmother Colorectal cancer Father Hypertension Diabetes Social History Smoking Status: Never smoker Tobacco Type: Cigarettes Second Hand Exposure: No; Do You Dip or Chew Tobacco: No; Hx Alcohol Use: No Hx Substance Use: No Preferred Language: [place] Communication Ability: Effective Hotel Desk Clerk Required: No Beliefs That Will Affect Care: None marital status: Current Living Situation: Spouse Current Living Situation Comment: lives at home with current occupational status: retired How many Children do You have: 1 Feels Safe at Home: Yes during the past year weight has: decreased > 10 lbs Assistive Devices: Denture - Upper, Denture - Lower and Glasses Allergies Allergies Allergy/AdvReac Type Severity Reaction Status Date / Time Iodinated Contrast Media Allergy Hives Verified 11/25/24 17:28 Penicillins Allergy Unknown Verified 11/25/24 17:28 povidone-iodine Allergy Hives Verified 11/25/24 17:28 [From Betadine] Home Meds Home Medications Medication Instructions Recorded Confirmed glimepiride 4 mg tablet 4 mg PO QAM 08/30/23 12/17/24 simvastatin 40 mg tablet 40 mg PO QPM 08/30/23 12/17/24 carvedilol 6.25 mg tablet 6.25 mg PO BID 11/02/23 12/17/24 ondansetron HCl 8 mg tablet 8 mg PO DAILY PRN Nausea 11/25/24 12/17/24 pioglitazone 30 mg tablet 30 mg PO DAILY 11/25/24 12/17/24 metformin 1,000 mg tablet 1,000 mg PO BID 12/11/24 12/17/24 Previous Rx's Medication Instructions Recorded tramadol 50 mg tablet 50 mg PO Q8H PRN pain #30 tabs 11/27/24 apixaban 2.5 mg tablet (Eliquis) 2.5 mg PO BID #60 tabs 12/13/24 levofloxacin 750 mg tablet 750 mg PO DAILY 5 days #5 tabs 12/13/24 loperamide 2 mg capsule 2 mg PO Q4H PRN Diarrhea #30 caps 12/13/24 pantoprazole 40 mg tablet,delayed 40 mg PO BID #30 tabs 12/13/24 release Results & Data (ED) Vital Signs Vital Signs - 24 hr 12/17/24 04:44 12/17/24 04:49 12/17/24 05:40 Temperature 36.8 C Temperature Source Oral Pulse Rate 100 H 108 H Pulse Rate [Radial] Pulse Rate from SpO2 Sensor Respiratory Rate 16 Respiratory Effort / Characteristics Non-Labored Spontaneous Respiratory Depth Normal Respiratory Pattern Regular Blood Pressure 135/73 Blood Pressure [Right Arm] Blood Pressure Mean 93 Blood Pressure Mean [Right Arm] Pulse Oximetry 96 96 Oxygen Delivery Method Room Air Room Air Sepsis Recent Fever Within 48 Hours No Sepsis New/Unexplained Change in Mental Status N/A Sepsis Action Taken by Nursing No Action Required 12/17/24 05:59 12/17/24 07:00 12/17/24 07:20 Temperature Temperature Source Pulse Rate Pulse Rate [Radial] 105 H 109 H Pulse Rate from SpO2 Sensor Respiratory Rate 17 14 Respiratory Effort / Characteristics Non-Labored Spontaneous Non-Labored Spontaneous Respiratory Depth Normal Normal Respiratory Pattern Regular Blood Pressure 144/80 H Blood Pressure [Right Arm] 133/76 144/80 H Blood Pressure Mean 96 Blood Pressure Mean [Right Arm] 95 101 Pulse Oximetry 96 95 Oxygen Delivery Method Room Air Room Air Sepsis Recent Fever Within 48 Hours Sepsis New/Unexplained Change in Mental Status Sepsis Action Taken by Nursing 12/17/24 08:00 12/17/24 08:30 Temperature Temperature Source Pulse Rate 106 H 100 H Pulse Rate [Radial] Pulse Rate from SpO2 Sensor 105 H 100 H Respiratory Rate 13 12 Respiratory Effort / Characteristics Respiratory Depth Respiratory Pattern Blood Pressure 129/74 154/76 H Blood Pressure [Right Arm] Blood Pressure Mean 115 102 Blood Pressure Mean [Right Arm] Pulse Oximetry 95 95 Oxygen Delivery Method Room Air Room Air Sepsis Recent Fever Within 48 Hours Sepsis New/Unexplained Change in Mental Status Sepsis Action Taken by Nursing Laboratory Data 12/17/24 04:48 12/17/24 04:48 Lab Results 12/17/24 12/17/24 Range/Units 04:48 08:12 WBC 3.90 L (4.8-10.8) K/ul RBC 3.56 L (4.20-5.40) M/uL Hgb 9.8 L (12.0-16.0) g/dl Hct 29.7 L (37.0-47.0) % MCV 83.4 (80.0-100.0) fL MCH 27.5 (25.0-34.0) pg MCHC 33.0 (32.0-36.0) g/dL RDW Std Deviation 45.3 (36.4-46.3) fL RDW Coeff of Jennifer 15.0 H (11.5-14.5) % Plt Count 313 (130-400) K/uL MPV 10.1 (9.4-12.4) fL Immature Gran % (Auto) 6.9 % Neut % (Auto) 73.8 % Lymph % (Auto) 9.0 % [place] % (Auto) 8.5 % Eos % (Auto) 1.5 % Baso % (Auto) 0.3 % Neut # (Auto) 2.88 (1.40-6.50) K/uL Lymph # (Auto) 0.35 L (1.20-3.40) K/uL [place] # (Auto) 0.33 (0.11-0.59) K/uL Eos # (Auto) 0.06 (0.00-0.50) K/uL Baso # (Auto) 0.01 (0.00-0.20) K/uL Immature Gran # (Auto) 0.27 H (0.01-0.20) K/uL Absolute Nucleated RBC 0.10 (0.00-0.12) K/uL Nucleated RBC % (auto) 2.6 % Toxic Granulation 1+ Dohle Bodies 1+ Polychromasia 1+ Echinocytes 1+ Sodium 130 L (136-145) mmol/L Potassium 4.0 (3.5-5.1) mmol/L Chloride 100 (98-107) mmol/L Carbon Dioxide 17 L (21-32) mmol/L Anion Gap 13 H (3-11) BUN 35 H (6-23) mg/dl Creatinine 1.33 H (0.6-1.2) mg/dl Est Cr Clr Drug Dosing 39.0 ml/min eGFR 44.13 BUN/Creatinine Ratio 26.3 H (10-20) Glucose 374 H* (70-99(Fasting)) mg/dl POC Glucose 341 H* (70-99) mg/dl Calcium 9.3 (8.6-10.3) mg/dl Magnesium 1.5 L (1.7-2.4) mg/dl Total Bilirubin 0.3 (0.2-1.0) mg/dl AST 7 L (13-39) U/L ALT 8 (7-52) U/L Alkaline Phosphatase 77 (34-104) U/L Total Protein 5.7 L (6.0-8.3) gm/dl Albumin 2.5 L (3.4-5.0) gm/dl Globulin 3.2 (2.5-4.0) gm/dl Albumin/Globulin Ratio 0.8 L (0.9-2) TSH 1.630 (0.300-4.500) uIu/ml Administered Medications Carvedilol (Carvedilol 6.25 Mg Tab) 6.25 mg PO BID [facility] Stop: 01/16/25 10:14 Last Admin: 12/17/24 11:18 Dose: Not Given Documented By: MARGARET Amiodarone HCl/Dextrose (Nexterone / D5w) 360 mg in 200 mls @ 33.333 mls/hr IV ONE ONE Stop: 12/17/24 16:25 Last Infusion: 12/17/24 12:12 Dose: 0 mg/min, 0 mls/hr Documented By: CINDI Co-signed By: [facility] Admin: 12/17/24 10:55 Dose: 1 mg/min, 33.3 mls/hr Documented By: MARGARET Co-signed By: ELMER Sodium Chloride (Nss) 1,000 mls @ 80 mls/hr IV .[id number] [facility] Stop: 12/18/24 11:29 Last Admin: 12/17/24 13:43 Dose: 80 mls/hr Documented By: CINDI Magnesium Sulfate/Dextrose (Magnesium Sulfate / D5w) 1 gm in 100 mls @ 50 mls/hr IV Q2H MINDY Stop: 12/17/24 15:29 Last Admin: 12/17/24 12:15 Dose: 50 mls/hr Documented By: CINDI Insulin Aspart (Insulin Aspart Per Unit Charge) 0 units SC ACHS MINDY Stop: 01/16/25 11:29 Last Admin: 12/17/24 12:13 Dose: 4 units Documented By: CINDI Co-signed By: RUBENS Discontinued Medications Adenosine (Adenosine Iv Soln 3 Mg/Ml 2 Ml Vial) Confirm Administered Dose 6 mg IV .STK-MED ONE Stop: 12/17/24 09:47 Last Admin: 12/17/24 10:19 Dose: Not Given Documented By: SDI Apixaban (Apixaban 2.5 Mg Tab) 2.5 mg PO BID MINDY Stop: 01/16/25 10:11 Last Admin: 12/17/24 10:22 Dose: Not Given Documented By: MARGARET Sodium Chloride (Nss) 1,000 mls @ 999 mls/hr IV .Q1H1M ONE Stop: 12/17/24 08:29 Last Infusion: 12/17/24 08:56 Dose: Infused Documented By: Admin: 12/17/24 07:53 Dose: 999 mls/hr Documented By: MARGARET Pantoprazole Sodium (Protonix) 40 mg in 10 mls @ 5 mls/min IV NOW ONE Stop: 12/17/24 08:52 Last Admin: 12/17/24 09:10 Dose: 5 mls/min Documented By: MARGARET Amiodarone HCl/Dextrose (Nexterone / D5w) 150 mg in 100 mls @ 600 mls/hr IV NOW STA Stop: 12/17/24 10:23 Last Infusion: 12/17/24 10:42 Dose: Infused Documented By: MARGARET Co-signed By: Admin: 12/17/24 10:31 Dose: 600 mls/hr Documented By: MARGARET Co-signed By: ELMER Sodium Chloride (Nss) 1,000 mls @ 999 mls/hr IV .Q1H1M ONE Stop: 12/17/24 13:29 Last Infusion: 12/17/24 13:42 Dose: Infused Documented By: Admin: 12/17/24 12:35 Dose: 999 mls/hr Documented By: CINDI Insulin Glargine (Lantus Per Unit Charge) 8 units SQ NOW STA Stop: 12/17/24 12:06 Last Admin: 12/17/24 12:14 Dose: 8 units Documented By: CINDI Co-signed By: RUBENS Insulin Human Regular (Novolin-R Insulin Per Unit Charge) 5 units IV NOW STA Stop: 12/17/24 08:18 Last Admin: 12/17/24 09:09 Dose: 5 units Documented By: MARGARET Co-signed By: ANIKET Metoprolol Tartrate (Metoprolol Tartrate 1 Mg/Ml Vial) Confirm Administered Dose 5 mg IV .STK-MED ONE Stop: 12/17/24 09:53 Last Admin: 12/17/24 10:20 Dose: Not Given Documented By: NA Metoprolol Tartrate (Metoprolol Tartrate 1 Mg/Ml Vial) 2.5 mg IV NOW STA Stop: 12/17/24 09:54 Last Admin: 12/17/24 09:54 Dose: 2.5 mg Documented By: NA Metoprolol Tartrate (Metoprolol Tartrate 1 Mg/Ml Vial) 2.5 mg IV NOW STA Stop: 12/17/24 09:59 Last Admin: 12/17/24 10:00 Dose: 2.5 mg Documented By: SID Imaging Data Radiologist's Impression: Chest X-Ray 12/17/24 04:48 EXAM: XR chest 1V portable CLINICAL HISTORY: WEAKNESS SDM TECHNIQUE: An X-ray image of the chest is obtained in AP projection. COMPARISON: 12/11/2024 FINDINGS: Pulmonary Parenchyma: Bilateral mild prominent interstitial linings No evidence of consolidation, collapse, or focal opacities. No pulmonary nodules are identified. Bilateral costophrenic angles are obscured, small pleural effusions or pleural thickening cannot be ruled out Heart and Mediastinum: Heart size and shape are normal. No mediastinal widening or masses. No hilar or mediastinal lymphadenopathy. Bony Thorax: Degenerative changes of spine and bilateral glenohumeral joints Soft Tissues: Soft tissues overlying the chest wall are unremarkable. Lines: A left approach central venous line is noted with tip noted in cavoatrial junction IMPRESSION: 1. Bilateral mild prominent interstitial linings 2. No acute cardiopulmonary abnormalities are identified. 3. Bilateral costophrenic angles are obscured, small pleural effusions or pleural thickening cannot be ruled out 4. A left approach central venous line is noted with tip noted in cavoatrial junction (satisfactory) 5. Findings remain stable since prior study Electronically signed by Soheila Whitt 12-17-2024 06:21 AM Discharge Plan Visit Data Chief Complaint: Leg Weakness, Bilateral Stated Complaint: Leg Weakness, Colon Cancer ED Provider: Zamzam Summers Discharge Problem: CHIN (acute kidney injury), Adult failure to thrive, Swelling of both lower extremities Patient Disposition: Admitted As Inpatient Discharge Instructions Interventions: ED Discharge Assessment Last Done: 12/17/24 10:13
[2024-12-17] MEDS: NovoLIN-R INSULIN PER UNIT CHARGE IV STA (09:09)
[2024-12-17] MEDS: PANTOprazole 40 MG/10 ML SYR IV ONE (09:10)
[2024-12-17] MEDS: METOPROLOL TARTRATE 1 MG/ML VIAL IV STA ×2 (09:54→10:00)
--- NOTE | 2024-12-17 10:03 | XRay Report ---
EXAM: Radiograph of the Abdomen 1 View INDICATION: Nausea and vomiting. TECHNIQUE: Frontal supine view of the abdomen/pelvis. COMPARISON: No relevant prior studies available. FINDINGS: Limitations: None. Intraperitoneal space: Generalized increased density over the abdomen consistent with ascites seen on CT. Gastrointestinal tract: Slight increased prominence of the aerated small bowel loop in the right lower quadrant. Nonspecific gas and fluid in bowel loops otherwise unchanged. Air followed to the distal descending colon. Organs: Visualized organ shadows appear grossly normal. Bones/joints: No fracture, erosion or dislocation. Soft tissues: No abnormality noted. No radiopaque foreign body noted. IMPRESSION: Slight increase aeration of a prominence right lower quadrant bowel loop. A developing small bowel obstruction is not excluded. ACT 112: Negative or not required by law. Electronically signed by Bhumi Ayala 12-17-2024 10:03 AM
[2024-12-17] MEDS ORDERED: MoRPHine SULFATE 2 MG/ML CARP IV PRN (10:12)
[2024-12-17] MEDS ORDERED: GLUCAGON FOR INJ 1 MG VIAL SQ PRN (10:12)
[2024-12-17] MEDS ORDERED: MoRPHine SULFATE 4 MG/ML 1 ML CARP\\VIAL IV PRN (10:12)
[2024-12-17] MEDS ORDERED: GLUCOSE 40% GEL 15 GM TUBE PO PRN (10:12)
[2024-12-17] MEDS ORDERED: GLUCOSE 10 TAB/TUBE PO PRN (10:12)
[2024-12-17] MEDS ORDERED: CARBOHYDRATES FOR HYPOGLYCEMIA PO PRN (10:12)
[2024-12-17] MEDS ORDERED: DEXTROSE 50% 50 ML SYRINGE IV PRN (10:12)
[2024-12-17] MEDS ORDERED: AMIODARONE IV BOLUS & DRIP IV STA (10:14)
[2024-12-17] MEDS ORDERED: 0.2 MICRON FILTER SET 1 EACH IV STA (10:14)
[2024-12-17] MEDS ORDERED: STAT IV Infusion **Titration per Protocol STA (10:14)
[2024-12-17] MEDS: ADENOSINE IV SOLN 3 MG/ML 2 ML VIAL IV ONE (10:19)
[2024-12-17] MEDS: METOPROLOL TARTRATE 1 MG/ML VIAL IV ONE (10:20)
[2024-12-17] MEDS: APIXABAN 2.5 MG TAB PO SCH (10:22)
[2024-12-17] MEDS: AMIODARONE / D5W 150 MG/100 ML BAG IV STA ×2 (10:31→19:52)
[2024-12-17] MEDS: AMIODARONE / D5W 360 MG/200 ML BAG IV ONE (10:55)
[2024-12-17 11:12] LABS: Magnesium 1.5 mg/dl (1.7-2.4)
[2024-12-17] MEDS: carvediloL 6.25 MG TAB PO SCH (11:18)
--- NOTE | 2024-12-17 11:34 | Cardiology Consultation ---
Date of Consultation December 17, 2024 Assessment & Plan (1) Atrial fibrillation with RVR: Plan 1. Atrial fibrillation: She was noted to have atrial fibrillation in the time of her evaluation at [facility] and August 2023. At that time she was treated with amiodarone and spontaneously converted. It is unclear if she has had recurrences since that time. She is not symptomatic with her current episode and may have occult episodes. The rhythm seems most likely to be atrial fibrillation although there does appear to be some organized activity in the rhythm regular rises at times. This could also be an atypical flutter. I do not believe this represents micro reentry or atypical SVT. There are several options for treatment. Rate control could be started with intravenous diltiazem. However, there were some concerns about mild hypotension in the setting of relative hypovolemia. In the past amiodarone has been effective in controlling her arrhythmia. I think this would be reasonable option given her other comorbidities and the likelihood of recurrence. Her atrial fibrillation is likely to resolve spontaneously or with amiodarone infusion. Recurrence is probably attenuated by improvement in her overall clinical condition and hydration. She does take systemic anticoagulation for venous thromboembolism, but not had a dose to prevent systemic thromboembolism from atrial fibrillation. This dose can be increased when she is taking oral medications. Until then she will undergo systemic anticoagulation with enoxaparin. History of Present Illness Reason for Consultation: Atrial fibrillation Requesting Physician: Steve Attending Physician: Sera Wilson MD History of Present Illness The patient is a 64-year-old woman with a history of metastatic rectosigmoid cancer who presented to the emergency room with symptoms of abdominal discomfort and intractable vomiting. Recent admitted for similar symptoms and found to have influenza A. At the time of her evaluation emergency room she was noted to develop tachycardia that appears to be atrial fibrillation. She was unaware of any high heart rates or palpitations. Not currently feeling short of breath although quite fatigued. No chest pain. Some abdominal discomfort. She has not been eating or drinking well for several days. She does notice some lower extremity edema. Several weeks ago she was feeling better and able to perform routine activities. She does fatigue easily and gets some mild dyspnea with activity. She generally rest for short period and continues. She did not endorse symptoms of dizziness or lightheadedness. No history of palpitations. No syncope. No chest pains. She has some monitoring devices at home which would tell her heart rate but she does not use it routinely. Allergies Allergy/AdvReac Type Severity Reaction Status Date / Time Iodinated Contrast Media Allergy Hives Verified 11/25/24 17:28 Penicillins Allergy Unknown Verified 11/25/24 17:28 povidone-iodine Allergy Hives Verified 11/25/24 17:28 [From Betadine] Home Medications Medication Instructions Recorded Confirmed Type glimepiride 4 mg tablet 4 mg PO QAM 08/30/23 12/17/24 History simvastatin 40 mg tablet 40 mg PO QPM 08/30/23 12/17/24 History carvedilol 6.25 mg tablet 6.25 mg PO BID 11/02/23 12/17/24 History ondansetron HCl 8 mg tablet 8 mg PO DAILY PRN Nausea 11/25/24 12/17/24 History pioglitazone 30 mg tablet 30 mg PO DAILY 11/25/24 12/17/24 History tramadol 50 mg tablet 50 mg PO Q8H PRN pain #30 tabs 11/27/24 12/17/24 Rx metformin 1,000 mg tablet 1,000 mg PO BID 12/11/24 12/17/24 History apixaban 2.5 mg tablet (Eliquis) 2.5 mg PO BID #60 tabs 12/13/24 12/17/24 Rx levofloxacin 750 mg tablet 750 mg PO DAILY 5 days #5 tabs 12/13/24 12/17/24 Rx loperamide 2 mg capsule 2 mg PO Q4H PRN Diarrhea #30 caps 12/13/24 12/17/24 Rx pantoprazole 40 mg tablet,delayed 40 mg PO BID #30 tabs 12/13/24 12/17/24 Rx release Patient History Medical History Metastatic colon cancer to liver Colostomy in place Cataracts, bilateral History of kidney stones Diverticulosis DM type 2 (diabetes mellitus, type 2) HLD (hyperlipidemia) HTN (hypertension) Chronic deep vein thrombosis (DVT) "Small" LLE clot on recent doppler by PCP per patient, advised nothing further needed per patient Atrial fibrillation Single episode 08/2023 while hospitalized at [facility] [place] for bowel resection > prescribed Eliquis/Coreg Surgical History Port-A-Cath in place (11/05/23) Insertion of Access Port with Fluoroscopy(Left) - Lynn Licona DO History of lithotripsy x2 H/O colonoscopy Hx of hysterectomy (2020) History of colon surgery Del Rosario's procedure with right salpingo-oophorectomy along with biopsies of the peritoneum,mesentery and liver per Dr. 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 Physical Exam Physical Exam: She is alert and oriented x3. Mood affect appear normal. She answered all questions appropriately. She appeared tired. HEENT: Sclerae are anicteric. Pupils are equal and reactive to light and accommodation. Extraocular movements were intact. Neuro: Cranial nerves intact Neck: Examination of the submandibular region did not reveal any significant lymphadenopathy. Carotids are palpable bilaterally and free of bruits on auscultation. There was no evidence of jugular venous distention. The thyroid was not enlarged. Lungs: Lungs are clear to auscultation bilaterally. There are no rales wheezes or rhonchi. She has normal respiratory effort without use of accessory muscles. There is normal pulmonary excursion. Cardiac: The rhythm was irregular and rapid. No murmurs. Abdomen: Distended. Ostomy in place. Extremities: Patient has bilateral radial pulses that are equal in intensity. There is no evidence cyanosis or clubbing. Mild lower extremity edema bilaterally, mostly in the feet. Skin: There are no rashes noted on examination today. Results & Data Vital Signs (Past 12 Hours) Vital Signs Temp Pulse Pulse Resp BP BP Pulse Ox 12/17/24 11:00 146 H 13 111/76 94 12/17/24 10:36 159 H 110/78 12/17/24 10:24 152 H 113/72 12/17/24 10:12 149 H 17 12/17/24 10:10 113/72 12/17/24 09:59 111/82 12/17/24 09:57 152 H 14 12/17/24 09:54 109/74 12/17/24 09:54 109/74 12/17/24 09:48 105/80 12/17/24 09:42 152 H 16 12/17/24 09:42 170 H 12/17/24 09:35 176 H 12/17/24 09:33 126 H 14 12/17/24 09:31 108 H 13 103/81 96 12/17/24 09:25 110 H 12/17/24 08:30 100 H 12 154/76 H 95 12/17/24 08:00 106 H 13 129/74 95 12/17/24 07:20 144/80 H 12/17/24 07:00 109 H 14 144/80 H 95 12/17/24 05:59 105 H 17 133/76 96 12/17/24 05:40 108 H 12/17/24 04:49 96 12/17/24 04:44 36.8 C 100 H 16 135/73 96 O2 Del Method 12/17/24 11:00 Room Air 12/17/24 10:36 12/17/24 10:24 12/17/24 10:12 12/17/24 10:10 12/17/24 09:59 12/17/24 09:57 12/17/24 09:54 12/17/24 09:54 12/17/24 09:48 12/17/24 09:42 12/17/24 09:42 12/17/24 09:35 12/17/24 09:33 12/17/24 09:31 Room Air 12/17/24 09:25 12/17/24 08:30 Room Air 12/17/24 08:00 Room Air 12/17/24 07:20 12/17/24 07:00 Room Air 12/17/24 05:59 Room Air 12/17/24 05:40 12/17/24 04:49 Room Air 12/17/24 04:44 Room Air Laboratory Results Abnormal Lab Results 12/17/24 12/17/24 12/17/24 04:48 08:12 10:06 WBC 3.90 L RBC 3.56 L Hgb 9.8 L Hct 29.7 L MCV 83.4 MCH 27.5 MCHC 33.0 RDW Std Deviation 45.3 RDW Coeff of Jennifer 15.0 H Plt Count 313 MPV 10.1 Immature Gran % (Auto) 6.9 Neut % (Auto) 73.8 Lymph % (Auto) 9.0 Mathews % (Auto) 8.5 Eos % (Auto) 1.5 Baso % (Auto) 0.3 Neut # (Auto) 2.88 Lymph # (Auto) 0.35 L Mathews # (Auto) 0.33 Eos # (Auto) 0.06 Baso # (Auto) 0.01 Immature Gran # (Auto) 0.27 H Absolute Nucleated RBC 0.10 Nucleated RBC % (auto) 2.6 Toxic Granulation 1+ Dohle Bodies 1+ Polychromasia 1+ Echinocytes 1+ Sodium 130 L Potassium 4.0 Chloride 100 Carbon Dioxide 17 L Anion Gap 13 H BUN 35 H Creatinine 1.33 H Est Cr Clr Drug Dosing 39.0 eGFR 44.13 BUN/Creatinine Ratio 26.3 H Glucose 374 H* POC Glucose 341 H* 337 H* Calcium 9.3 Magnesium 1.5 L Total Bilirubin 0.3 AST 7 L ALT 8 Alkaline Phosphatase 77 Total Protein 5.7 L Albumin 2.5 L Globulin 3.2 Albumin/Globulin Ratio 0.8 L TSH 1.630 Diagnostic Findings Echocardiogram [facility] 09/02/2023: Normal LV systolic function with ejection fraction of 60 to 65%. No significant valvular heart disease. PG Care Time/CCT Total # of Minutes Spent Total Time Spent with Patient: Total time spent is greater than 50% in coordination of care (as documented) at patient's floor/unit and/or counseling patient: Coding Level of Care Code 65526 INT INP/OBS CARE 3/75MIN Diagnoses Atrial fibrillation with RVR I48.91
--- NOTE | 2024-12-17 11:52 | Electrocardiogram Report ---
Test Reason : Blood Pressure : */* mmHG Vent. Rate : 170 BPM Atrial Rate : * BPM P-R Int : * ms QRS Dur : 78 ms QT Int : 270 ms P-R-T Axes : * -11 129 degrees QTcB Int : 454 ms Atrial fibrillation Poor R wave progression, consider anterior MN vs. lead placement vs. LVH Abnormal ECG When compared with ECG of 11-Dec-2024 17:12, Vent. rate has increased by 66 bpm Nonspecific T wave abnormality now evident in Lateral leads Confirmed by Roverto Taylor ([id number]) on 12/17/2024 11:52:01 AM Referred By: REFERRED SELF Confirmed By: Roverto Taylor
[2024-12-17] MEDS: INSULIN ASPART PER UNIT CHARGE SC SCH ×2 (12:13→18:28)
[2024-12-17] MEDS: LANTUS PER UNIT CHARGE SQ STA (12:14)
[2024-12-17] MEDS: MAGNESIUM SULFATE / D5W 1 GM/100 ML BAG IV SCH (12:15)
[2024-12-17 12:25] LABS: Influenza A virus by PCR Positive (Neg); Influenza B virus by PCR Negative (Neg); RSV by PCR Negative (Neg); SARS CoV2 RNA(COVID-19) Ceph NEGATIVE (Negative)
[2024-12-17] MEDS: SODIUM CHLORIDE 0.9% 1,000 ML IV SCH (13:43)
[2024-12-17 13:51] LABS: Appearance Urine Cloudy (Clear); Bacteria Urine Automated None Seen (None Seen); Bilirubin Urine Negative (Negative); Blood Urine 1+ (Negative); Color Urine Yellow; Epithelial Cell Urine Auto 0-2 /hpf (0-2); Glucose Urine UA 3+ (Negative); Granular Casts Urine Present /lpf (None Prsent); Ketones Urine 1+ (Negative); Leukocyte Esterase Urine Negative (Negative); Nitrite Urine Negative (Negative); Protein Urine 2+ (Negative); Specific Gravity Urine 1.022 (1.000-1.030); Urobilinogen Urine Negative (Negative); WBC Urine Automated 0-5 /hpf (0-5); pH Urine 5.5 (4.5-7.5)
[2024-12-17] MEDS: ENOXAPARIN 80 MG/0.8 ML SYR SQ SCH (14:52)
[2024-12-17] MEDS: AMIODARONE / D5W 360 MG/200 ML BAG IV SCH (16:22)
[2024-12-17] MEDS ORDERED: traMADol HCL 50 MG TABLET PO PRN (17:29)
[2024-12-17] MEDS: METOPROLOL TARTRATE 1 MG/ML VIAL IV SCH (18:05)
[2024-12-17] MEDS ORDERED: 0.2 MICRON FILTER SET 1 EACH IV ONE (19:06)
[2024-12-17] MEDS: SODIUM CHLORIDE 0.9% 500 ML IV ONE (19:20)
[2024-12-17] MEDS: ACETAMINOPHEN 1,000 MG/100 ML VIAL IV PRN (20:23)
[2024-12-17] MEDS: PANTOprazole 40 MG/10 ML SYR IV SCH (20:25)
[2024-12-17] MEDS ORDERED: Nursing to Pharmacy Communication SCH (21:00)
[2024-12-17] MEDS ORDERED: SIMVASTATIN 40 MG TAB PO SCH (21:00)
[2024-12-17] MEDS ORDERED: SIMVASTATIN 20 MG TAB PO SCH (21:00)
--- NOTE | 2024-12-17 21:16 | Ultrasound Report ---
Exam(s): US VENOUS RIGHT LOWER EXTREMITY EXAM: US Duplex Right Lower Extremity Veins CLINICAL HISTORY: Reason for exam: RLE pain, edema,cancer,r/o DVT. TECHNIQUE: Real-time duplex ultrasound scan of the right lower extremity veins integrating B-mode two-dimensional vascular structure, Doppler spectral analysis, color flow Doppler imaging and compression. COMPARISON: No relevant prior studies available. FINDINGS: Deep veins: Nonocclusive DVT proximal femoral vein appears acute. No DVT in the visualized common femoral, mid or distal femoral, proximal deep femoral or popliteal veins. The veins demonstrate normal color flow, are normally compressible, with normal phasic flow and/or augmentation response. Superficial veins: Unremarkable. No thrombus in the visualized great saphenous vein. Soft tissues: No acute findings. IMPRESSION: Acute-appearing nonocclusive DVT proximal femoral vein. Communications: Verify Receipt with Nurse Electronically signed by: Kriss Saab M.D. 12/17/24 21:15 PM
[2024-12-18] MEDS ORDERED: HEPARIN 100 UNIT/ML 5ML FLUSH FLUSH PRN (03:21)
[2024-12-18] MEDS: ONDANSETRON INJ 2 MG/ML 2 ML VIAL IV PRN (03:39)
[2024-12-18 05:16] LABS: Hematocrit (blood only) 29.5 % (37.0-47.0); Hemoglobin 9.7 g/dl (12.0-16.0); Mean Corpuscular Hemoglobin 27.2 pg (25.0-34.0); Mean Corpuscular Hgb Conc 32.9 g/dL (32.0-36.0); Mean Corpuscular Volume 82.9 fL (80.0-100.0); Mean Platelet Volume 10.7 fL (9.4-12.4); Nucleated RBC # (auto) 0.07 K/uL (0.00-0.12); Nucleated RBC % (auto) 1.6 %; Platelet Count 281 K/uL (130-400); RDW Coefficient of Variation 15.2 % (11.5-14.5); RDW Standard Deviation 45.1 fL (36.4-46.3); Red Blood Count 3.56 M/uL (4.20-5.40); White Blood Count 4.41 K/ul (4.8-10.8)
[2024-12-18 05:26] LABS: BUN Creatinine Ratio 24.3 (10-20); Creatinine Clr Calc Pharmacy 38.1 ml/min; Magnesium 1.8 mg/dl (1.7-2.4); Potassium 3.2 mmol/L (3.5-5.1)
[2024-12-18 06:22] LABS: Basophils # (auto) 0.05 K/uL (0.00-0.20); Basophils % (auto) 1.1 %; Dohle Bodies 1+; Echinocytes 1+; Eosinophils # (auto) 0.12 K/uL (0.00-0.50); Eosinophils % (auto) 2.7 %; Immature Granulocytes % (auto) 9.1 %; Lymphocytes # (auto) 0.46 K/uL (1.20-3.40); Lymphocytes % (auto) 10.4 %; Monocytes # (auto) 0.19 K/uL (0.11-0.59); Monocytes % (auto) 4.3 %; Neutrophils # (auto) 3.19 K/uL (1.40-6.50); Neutrophils % (auto) 72.4 %; Polychromasia 1+; Toxic Granulation 1+
[2024-12-18] MEDS: FAMOTIDINE 20MG IV PUSH 20 MG/5 ML SYR IV ONE (07:19)
[2024-12-18] MEDS: PROCHLORPERAZINE 5 MG in SYRINGE 4 ML IV ONE (07:19)
[2024-12-18] MEDS: LANTUS PER UNIT CHARGE SQ SCH (08:51)
[2024-12-18] MEDS: POTASSIUM CHLORIDE / WTR 10 MEQ/100 ML PLCT IV SCH (10:00)
--- NOTE | 2024-12-18 11:21 | Hospitalist Progress Note ---
Date of Service December 18, 2024 Assessment & Plan (1) SBO (small bowel obstruction): Plan: CT abd/pelvis today confirms SBO. This is the cause of her presenting intractable vomiting. Suspect SBO is due to carcinomatosis/omental implants; adhesions possible from prior surgery but less likely as the primary cause. She has pain in addition to ongoing nausea/emesis. Pt's states she would never want surgery. Thus, will place NG tube as this will stop the N/V and will help her be more comfortable. agreeable to NG tube placement. (2) Metastatic colon cancer to liver: Plan: known dx, follows with Dr Rubio at [facility] diagnosed 08/2023 stage 4 with extensive mets including carcinomatosis she has had progression of her disease despite aggressive Rx over the last 12 months she now has SBO as noted in #1 pt's reports that he & Ms Javier spoke last week and they were discussing hospice wants to proceed with hospice in light of current status will involve palliative care formally (3) Carcinomatosis: Plan: 2nd to colon ca extensive as noted on CT abd/pelvis probable cause of SBO with pain due to such change morphine to dilaudid prn (4) Acute hypoxic respiratory failure: Plan: 2nd to probable aspiration event overnight recent fluA infection -- thus can't rule out bacterial superinfection continue NC O2 (5) Aspiration pneumonitis due to regurgitated gastric secretions: Plan: patient had emesis overnight which was followed by desaturation/hypoxia now with NC O2 requirement given transition to hospice / comfort care soon will not initiate abx and simply focus on comfort (6) CHIN (acute kidney injury): Plan: baseline Cr about 0.9 now 1.3 she appears volume contracted remains on IV fluids (7) Influenza A: Plan: initial dx 12/11/24 cont droplet precautions completed 5-day course of Tamiflu during prior hospitalization (8) Atrial fibrillation with RVR: Plan: developed rapid a.fib in the ER while awaiting admission now on amiodarone infusion to maintain NSR continue for now also receiving lovenox SC therapeutic dosing but plan to stop this once ready to transition to full comfort care/hospice appreciate cardiology consult/recs (9) Unstageable pressure ulcer of sacral region: Plan: b/l sacral region appreciate wound care recs pain meds prn (10) Colostomy in place: Plan: now with SBO as in #1 above (11) DM type 2 (diabetes mellitus, type 2): Plan: cont lantus-novolog for now, but plan to stop these once patient is full comfort/hospice (12) Hyponatremia: Plan: acute - 2nd volume depletion also has chronic hyponatremia - due to SIADH from cancer? (13) Hypokalemia: Plan: gave four 10meq KCL riders this am (14) Right leg DVT: Plan: as seen on doppler study lovenox 1mg/kg BID for now but plan to stop such once full comfort care initiated / hospice Plan extensively updated by phone and at bedside care discussed with palliative care via Melvin correspondence highly complex care today multiple bedside visits extensively counseling given to pt's spouse total time 80 minutes Admission and Anticipated Discharge Date Admission Date: December 17, 2024 Subjective was notified by staff early this am that patient was asking to go home overnight events reviewed including ongoing vomiting, ongoing diffuse abdominal pain, and worsening O2 sats when she had her last emesis episode due to persistent vomiting I ordered noncontrast abd/pelvic CT which confirmed SBO, moderate ascites, etc. upon return from CT scan she had a large emesis of ~400cc she complained of severe fatigue (was falling asleep while we were talking) she complained of diffuse abd pain she does not remember the last time she had flatus or stool via her colostomy she voiced she wanted to go home she is frustrated by being sick after my rounds I called her discussed that his has SBO he was actually en route to the hospital when we talked by phone when he was present at bedside a short time later we discussed goals of care he stated that last week he and his had talked about hospice he voiced he wanted to bring her home on hospice if possible he wants her comfortable and doesn't want her to suffer he voiced understanding that she is very ill agreeable to NG tube placement Review of Systems Review of Systems: CV - no chest pain pulm - mild dyspnea GI - abdominal pain, nausea, emesis Physical Exam Physical Exam: gen - looks very ill, lethargic, uncomfortable neck - no JVD mouth - MM dry heart - tachy, s1 s2 lungs - decreased BS bases; no wheezing; scattered rales bases abd - markedly distended, colostomy present left abdomen with no flatus or stool in bag, tender central abdomen, BS+ ext - 1+ edema b/l, pulses b/l feet 2+ psych - sleepy chest - port clean/intact Results & Data Results & Data Vital Signs (Past 12 Hours) Vital Signs Temp Pulse Pulse Resp BP BP Pulse Ox 12/18/24 10:03 96 H 24 90 12/18/24 10:00 134/69 12/18/24 09:48 97 H 20 90 12/18/24 09:00 91 H 20 91 12/18/24 09:00 124/60 12/18/24 08:00 119/75 12/18/24 08:00 95 H 20 90 12/18/24 08:00 12/18/24 07:18 89 20 93 12/18/24 06:00 90 19 134/65 92 12/18/24 05:00 83 22 117/58 L 94 12/18/24 04:00 36.6 C 89 16 117/63 92 12/18/24 03:00 88 14 119/71 97 12/18/24 02:00 88 15 127/73 94 12/18/24 01:00 90 14 129/68 94 12/18/24 00:00 36.5 C 81 15 119/66 94 O2 Del Method O2 Flow Rate 12/18/24 08:00 Nasal Cannula 2 12/18/24 06:00 Nasal Cannula 3 12/18/24 05:00 Nasal Cannula 4 12/18/24 04:00 Oxymask 5 12/18/24 03:00 Room Air 12/18/24 02:00 Room Air 12/18/24 01:00 Room Air 12/18/24 00:00 Room Air Laboratory Results Laboratory Results - last 24 hr 12/17/24 12/18/24 12/18/24 23:56 04:26 05:50 WBC 4.41 L RBC 3.56 L Hgb 9.7 L Hct 29.5 L MCV 82.9 MCH 27.2 MCHC 32.9 RDW Std Deviation 45.1 RDW Coeff of Jennifer 15.2 H Plt Count 281 MPV 10.7 Immature Gran % (Auto) 9.1 Neut % (Auto) 72.4 Lymph % (Auto) 10.4 Sunflower % (Auto) 4.3 Eos % (Auto) 2.7 Baso % (Auto) 1.1 Neut # (Auto) 3.19 Lymph # (Auto) 0.46 L Sunflower # (Auto) 0.19 Eos # (Auto) 0.12 Baso # (Auto) 0.05 Immature Gran # (Auto) 0.40 H Absolute Nucleated RBC 0.07 Nucleated RBC % (auto) 1.6 Toxic Granulation 1+ Dohle Bodies 1+ Polychromasia 1+ Echinocytes 1+ Sodium 133 L Potassium 3.2 L Chloride 104 Carbon Dioxide 20 L Anion Gap 9 BUN 33 H Creatinine 1.36 H Est Cr Clr Drug Dosing 38.1 eGFR 42.96 BUN/Creatinine Ratio 24.3 H Glucose 230 H POC Glucose 239 H 233 H Calcium 9.0 Magnesium 1.8 12/18/24 12/18/24 12:22 16:08 WBC RBC Hgb Hct MCV MCH MCHC RDW Std Deviation RDW Coeff of Jennifer Plt Count MPV Immature Gran % (Auto) Neut % (Auto) Lymph % (Auto) Sunflower % (Auto) Eos % (Auto) Baso % (Auto) Neut # (Auto) Lymph # (Auto) Sunflower # (Auto) Eos # (Auto) Baso # (Auto) Immature Gran # (Auto) Absolute Nucleated RBC Nucleated RBC % (auto) Toxic Granulation Dohle Bodies Polychromasia Echinocytes Sodium Potassium Chloride Carbon Dioxide Anion Gap BUN Creatinine Est Cr Clr Drug Dosing eGFR BUN/Creatinine Ratio Glucose POC Glucose 237 H 182 H Calcium Magnesium Diagnostic Findings Venous Doppler Study 12/17/24 17:25 CR Exam(s): US VENOUS RIGHT LOWER EXTREMITY EXAM: US Duplex Right Lower Extremity Veins CLINICAL HISTORY: Reason for exam: RLE pain, edema,cancer,r/o DVT. TECHNIQUE: Real-time duplex ultrasound scan of the right lower extremity veins integrating B-mode two-dimensional vascular structure, Doppler spectral analysis, color flow Doppler imaging and compression. COMPARISON: No relevant prior studies available. FINDINGS: Deep veins: Nonocclusive DVT proximal femoral vein appears acute. No DVT in the visualized common femoral, mid or distal femoral, proximal deep femoral or popliteal veins. The veins demonstrate normal color flow, are normally compressible, with normal phasic flow and/or augmentation response. Superficial veins: Unremarkable. No thrombus in the visualized great saphenous vein. Soft tissues: No acute findings. IMPRESSION: Acute-appearing nonocclusive DVT proximal femoral vein. Communications: Verify Receipt with Nurse Electronically signed by: Kriss Saab M.D. 12/17/24 21:15 PM Abdomen/Pelvis CT 12/18/24 09:23 CT OF THE ABDOMEN AND PELVIS WITHOUT CONTRAST CLINICAL HISTORY: known stage 4 colon ca, ascites; vomiting; SBO?? COMPARISON STUDY: CT of the abdomen and pelvis December 11, 2024. KUB December 17, 2024. TECHNIQUE: Axial images of the abdomen and pelvis were obtained without IV contrast. Images were reviewed in the axial, sagittal, and coronal planes. Automated exposure control was utilized for the study. A dose lowering technique was utilized adhering to the principles of ALARA. FINDINGS: Scattered alveolar opacities within the lower lobes and right middle lobe have developed since CT of December 11, 2024. A small left pleural effusion with subpleural opacity is again noted. There is a trace right pleural effusion. These have slightly increased. No pneumatosis, free air or portal venous gas is present. Moderate ascites is similar to prior exam. Moderate right hydronephrosis is unchanged. There is no left hydronephrosis. No hepatic lesions are identified on unenhanced exam. Peritoneal carcinomatosis with numerous omental/peritoneal nodules is again noted. Retroperitoneal mesenteric lymphadenopathy is present. This is also similar to prior CT. Bilateral pelvic masses, left larger than right, are unchanged. There are postoperative findings consistent with sigmoid resection with descending colostomy. There has been interval development of moderate small bowel dilatation. The proximal to mid small bowel is moderately dilated and fluid-filled. Distal small bowel is decompressed. Well-defined transition point is not identified however the findings represent a partial small bowel obstruction. Body wall edema is present. There is no biliary or pancreatic ductal dilatation. There are small layering gallstones within the gallbladder. The gallbladder is not distended. No suspicious lesions within the visualized skeletal structures are present. A Hanley balloon and gas within the bladder. IMPRESSION: 1. Interval development of a small bowel obstruction, as described above. This finding will be called/faxed to the ordering provider at time of dictation. 2. Peritoneal carcinomatosis and retroperitoneal and mesenteric lymphadenopathy. Moderate ascites. These findings are similar to prior CT. 3. No change in moderate right hydroureteronephrosis. No left hydronephrosis. 4. Interval development of alveolar opacities within the lower lungs which favors aspiration pneumonitis or pneumonia. 5. Small left and trace right pleural effusions. ACT 112: Negative or not required by law. Electronically signed by: Jessee Red M.D. 12/18/2024 11:31 AM KUB X-Ray 12/18/24 15:05 XR KUB/Abdomen 1 view CLINICAL HISTORY: NG tube placement TECHNIQUE: 1 view of the abdomen was obtained. Comparison: Comparison is made to abdomen radiograph 12/07/2024 FINDINGS: Enteric tube terminates in the stomach. The osseous structures are grossly unremarkable. The bowel gas pattern is nonobstructive. Small stool burden is seen. IMPRESSION: Satisfactory position of enteric tube. ACT 112: Negative or not required by law. Electronically signed by: Hemant Gilbert M.D. 12/18/2024 3:39 PM PG Care Time/CCT Total # of Minutes Spent Total Time Spent with Patient: Total time spent is greater than 50% in coordination of care (as documented) at patient's floor/unit and/or counseling patient: Prolonged Care Time Prolonged Care Time: Yes Total Prolonged Care Time: 80 Coding Level of Care Code 43107 SUB INP/OBS CARE 3/50MIN (25 - SIGNIFICANT, SEPARATELY IDENTIFIABLE ) Diagnoses SBO (small bowel obstruction) K56.609 Metastatic colon cancer to liver C18.9; C78.7 Carcinomatosis C80.0 Acute hypoxic respiratory failure J96.01 Aspiration pneumonitis due to regurgitated gastric secretions J69.0 CHIN (acute kidney injury) N17.9 Influenza A J10.1 Atrial fibrillation with RVR I48.91 Unstageable pressure ulcer of sacral region L89.[address] Z93.3 DM type 2 (diabetes mellitus, type 2) E11.9 Hyponatremia E87.1 Hypokalemia E87.6 Right leg DVT I82.401 Additional Codes Prolonged Care Time - Prolonged Care Time: Yes ([id number])
--- NOTE | 2024-12-18 11:33 | CT Scan Report ---
CT OF THE ABDOMEN AND PELVIS WITHOUT CONTRAST CLINICAL HISTORY: known stage 4 colon ca, ascites; vomiting; SBO?? COMPARISON STUDY: CT of the abdomen and pelvis December 11, 2024. KUB December 17, 2024. TECHNIQUE: Axial images of the abdomen and pelvis were obtained without IV contrast. Images were revi ewed in the axial, sagittal, and coronal planes. Automated exposure control was utilized for the chela dy. A dose lowering technique was utilized adhering to the principles of ALARA. FINDINGS: Scattered alveolar opacities within the lower lobes and right middle lobe have developed si nce CT of December 11, 2024. A small left pleural effusion with subpleural opacity is again noted. The re is a trace right pleural effusion. These have slightly increased. No pneumatosis, free air or port al venous gas is present. Moderate ascites is similar to prior exam. Moderate right hydronephrosis is unchanged. There is no left hydronephrosis. No hepatic lesions are identified on unenhanced exam. Pe ritoneal carcinomatosis with numerous omental/peritoneal nodules is again noted. Retroperitoneal mese nteric lymphadenopathy is present. This is also similar to prior CT. Bilateral pelvic masses, left la rger than right, are unchanged. There are postoperative findings consistent with sigmoid resection wi th descending colostomy. There has been interval development of moderate small bowel dilatation. The proximal to mid small bowel is moderately dilated and fluid-filled. Distal small bowel is decompresse d. Well-defined transition point is not identified however the findings represent a partial small bow el obstruction. Body wall edema is present. There is no biliary or pancreatic ductal dilatation. Ther e are small layering gallstones within the gallbladder. The gallbladder is not distended. No suspicio us lesions within the visualized skeletal structures are present. A Hanley balloon and gas within the bladder. IMPRESSION: 1. Interval development of a small bowel obstruction, as described above. This finding will be called /faxed to the ordering provider at time of dictation. 2. Peritoneal carcinomatosis and retroperitoneal and mesenteric lymphadenopathy. Moderate ascites. Th yrn findings are similar to prior CT. 3. No change in moderate right hydroureteronephrosis. No left hydronephrosis. 4. Interval development of alveolar opacities within the lower lungs which favors aspiration pneumoni tis or pneumonia. 5. Small left and trace right pleural effusions. ACT 112: Negative or not required by law. Electronically signed by: Jessee Red M.D. 12/18/2024 11:31 AM
[2024-12-18] MEDS: HYDROmorphone INJ 0.5 MG/0.5 ML SYR IV PRN (11:57)
[2024-12-18] MEDS: PROMETHAZINE 6.25 MG/50.25 ML BAG IV PRN (12:43)
--- NOTE | 2024-12-18 15:40 | XRay Report ---
XR KUB/Abdomen 1 view CLINICAL HISTORY: NG tube placement TECHNIQUE: 1 view of the abdomen was obtained. Comparison: Comparison is made to abdomen radiograph 12/07/2024 FINDINGS: Enteric tube terminates in the stomach. The osseous structures are grossly unremarkable. The bowel ga s pattern is nonobstructive. Small stool burden is seen. IMPRESSION: Satisfactory position of enteric tube. ACT 112: Negative or not required by law. Electronically signed by: Hemant Gilbert M.D. 12/18/2024 3:39 PM
--- NOTE | 2024-12-18 16:35 | Cardiology Progress Note ---
Date of Service December 18, 2024 Assessment & Plan (1) Atrial fibrillation with RVR: Plan 1. Atrial fibrillation: She returned to a sinus rhythm yesterday evening. No overt symptoms to begin with. Will switch her amiodarone infusion to an oral preparation. She will continue higher dose of systemic anticoagulation. 2. Small bowel obstruction: Undergoing decompression. Admission and Anticipated Discharge Date Admission Date: December 17, 2024 Subjective This afternoon the patient was very tired. She denied report any specific pain. No abdominal complaints. Not aware of any palpitations. Review of Systems Review of Systems: Per HPI. Physical Exam Physical Exam: She was somnolent. However, easily arousable and answer questions appropriately. HEENT: Sclerae are anicteric. Pupils are equal and reactive to light and accommodation. Extraocular movements were intact. NG tube in place Neuro: Cranial nerves intact Lungs: Lungs are clear to auscultation bilaterally. There are no rales wheezes or rhonchi. She has normal respiratory effort without use of accessory muscles. There is normal pulmonary excursion. Cardiac: The rhythm was irregular and rapid. No murmurs. Extremities: Patient has bilateral radial pulses that are equal in intensity. There is no evidence cyanosis or clubbing Skin: There are no rashes noted on examination today. Results & Data Vital Signs (Past 12 Hours) Vital Signs Temp Pulse Pulse Resp BP BP Pulse Ox 12/18/24 15:43 104 H 12/18/24 14:15 104 H 18 93 12/18/24 12:47 36.8 C 12/18/24 12:19 121/65 12/18/24 12:19 121/65 12/18/24 12:19 121/65 91 12/18/24 12:18 86 23 12/18/24 12:00 89 22 87 L 12/18/24 10:03 96 H 24 90 12/18/24 10:00 134/69 12/18/24 09:48 97 H 20 90 12/18/24 09:00 91 H 20 91 12/18/24 09:00 124/60 12/18/24 08:00 119/75 12/18/24 08:00 95 H 20 90 12/18/24 08:00 12/18/24 07:18 89 20 93 12/18/24 06:00 90 19 134/65 92 12/18/24 05:00 83 22 117/58 L 94 O2 Del Method O2 Flow Rate 12/18/24 15:43 12/18/24 14:15 Nasal Cannula 2 12/18/24 12:47 12/18/24 12:19 12/18/24 12:19 12/18/24 12:19 Nasal Cannula 2 12/18/24 12:18 12/18/24 12:00 Room Air 12/18/24 10:03 12/18/24 10:00 12/18/24 09:48 12/18/24 09:00 12/18/24 09:00 12/18/24 08:00 12/18/24 08:00 12/18/24 08:00 Nasal Cannula 2 12/18/24 07:18 12/18/24 06:00 Nasal Cannula 3 12/18/24 05:00 Nasal Cannula 4 Laboratory Results Abnormal Lab Results 12/17/24 12/17/24 12/18/24 17:38 23:56 04:26 WBC 4.41 L RBC 3.56 L Hgb 9.7 L Hct 29.5 L MCV 82.9 MCH 27.2 MCHC 32.9 RDW Std Deviation 45.1 RDW Coeff of Jennifer 15.2 H Plt Count 281 MPV 10.7 Immature Gran % (Auto) 9.1 Neut % (Auto) 72.4 Lymph % (Auto) 10.4 [place] % (Auto) 4.3 Eos % (Auto) 2.7 Baso % (Auto) 1.1 Neut # (Auto) 3.19 Lymph # (Auto) 0.46 L [place] # (Auto) 0.19 Eos # (Auto) 0.12 Baso # (Auto) 0.05 Immature Gran # (Auto) 0.40 H Absolute Nucleated RBC 0.07 Nucleated RBC % (auto) 1.6 Toxic Granulation 1+ Dohle Bodies 1+ Polychromasia 1+ Echinocytes 1+ Sodium 133 L Potassium 3.2 L Chloride 104 Carbon Dioxide 20 L Anion Gap 9 BUN 33 H Creatinine 1.36 H Est Cr Clr Drug Dosing 38.1 eGFR 42.96 BUN/Creatinine Ratio 24.3 H Glucose 230 H POC Glucose 273 H 239 H Calcium 9.0 Magnesium 1.8 12/18/24 12/18/24 12/18/24 05:50 12:22 16:08 WBC RBC Hgb Hct MCV MCH MCHC RDW Std Deviation RDW Coeff of Jennifer Plt Count MPV Immature Gran % (Auto) Neut % (Auto) Lymph % (Auto) [place] % (Auto) Eos % (Auto) Baso % (Auto) Neut # (Auto) Lymph # (Auto) [place] # (Auto) Eos # (Auto) Baso # (Auto) Immature Gran # (Auto) Absolute Nucleated RBC Nucleated RBC % (auto) Toxic Granulation Dohle Bodies Polychromasia Echinocytes Sodium Potassium Chloride Carbon Dioxide Anion Gap BUN Creatinine Est Cr Clr Drug Dosing eGFR BUN/Creatinine Ratio Glucose POC Glucose 233 H 237 H 182 H Calcium Magnesium PG Care Time/CCT Total # of Minutes Spent Total Time Spent with Patient: Total time spent is greater than 50% in coordination of care (as documented) at patient's floor/unit and/or counseling patient: Coding Level of Care Code 36812 SUB INP/OBS CARE 2/35MIN Diagnoses Atrial fibrillation with RVR I48.91
[2024-12-19 08:12] VITALS: BP 136/73; TEMP 98.4; O2SAT 93
[2024-12-19] MEDS ORDERED: HALOPERIDOL ORAL SOLN 2 MG/ML PO PRN (12:00)
--- NOTE | 2024-12-19 12:10 | Palliative Family Discussion ---
Date of Service December 19, 2024 Patient Directed Conference Time of Meetinam-1220pm Participants: Lily Miller DNP Patient participation: yes Patient Support System: and son Other Healthcare Provider Participation: None Meeting Location: bedside Advanced Directive available: yes If yes, descriptors: pt reaffirms DNR/DNI and comfort care, wants to go home, firmly states she does not want to spend her final days in a hospital The patient's surrogate medical decision maker participated: Legally authorized health care proxy: Other surrogate: son A face to face advance care planning meeting was held for Shreya Cabrera at the bedside together with her family. This meeting was necessary for determining the appropriate course of treatment. Topics of Discussion Topics of Discussion: 1. Shreya and her family are aware of the fact that her cancer has progressed to a terminal state that her time is limited. She has been very clear with her family as well as medical teams that she wishes to be home for an end-of-life process and very clearly does not wish to spend her final days in the hospital. They are aware overall that her time is limited and that her medical complexity is high. She currently has an NG tube in to intermittent suction to help address the obstruction and ongoing GI distress. The NG tube has been providing significant relief. She had some restlessness and agitation with anxiety earlier this morning that improved with a low-dose of Ativan. She would like to continue using Ativan on an as-needed basis. We discussed the options for comfort care here in the hospital with transition to home hospice versus comfort care with discharge to a half-way facility. Patient's , while admittedly anxious about bringing her home with hospice, is also equally firm that a residential is not an option. He and his son would like the option to bring her home with hospice and will provide additional care and support. We had a lengthy discussion about the services provided by hospice: I provided education about the hospice benefit: an interdisciplinary program offered by nurses, nurses aides, social workers, chaplains and a emergency medical services coordinator for patients with a terminal condition and a life expectancy of less than 6 months. This is covered by Medicare at 100%/no out of pocket expense to patient and all meds/supplies needed by patient for the reason they are on hospice are paid for/covered by hospice. The goal is assure quality of life of the patient in their home setting (home, residential, inpatient hospice setting) by providing symptoms management, psychosocial and spiritual support. However, they cannot offer 24 hours care and if the family is unable to provide that care, they will have to consider personal care with out of pocket cost vs. residential placement. We discussed the goals of hospice as a patient service and the goals of care; we discussed EOL trajectories and transitions amanda the emotional impact of realizing mortality as a concrete reality from prior abstract considerations. Pt was reassured that no matter where they are along this trajectory, they are not alone - their medical team will remain by their side through their journey. Discussed the pros/cons of accepting help when especially weakened and distressed by pain-which would also help provide relief/decrease caregiver burden/strain. 2. We had a lengthy conversation about the medications used to treat symptom management at the end of life particularly in patients with impairments in their ability to take p.o. 3. Dying patients fear dyspnea and pain, therefore, symptom control is one cornerstone of pulmonary palliative care. Dyspnea is a prominent symptom of the patient with advanced respiratory disease of any cause: nearly all patients with COPD had dyspnea during the last 3 days of their lives. We also discussed the dying process, including changes pt may move through in the dying process including but not limited to sleeping more, disorientation when awake, restlessness, diminished senses/inability to respond to stimulus although ability to be aware of them remains intact longer, and changes in body temperatures, skin changes/mottling/cyanosis, respiratory pattern changes, and oral secretions. Family verbalized understanding. Patient and family express a desire and reaffirmed that there goal is to assure a peaceful . Other Content of Meetin. Opportunity given for participants to speak and ask questions. 2. Participants were assured of attention to patient comfort. 3. Reassurance provided. 4. Support was provided for informed, good-justin decisions. 5. Emotions expressed by family were acknowledged and addressed. 6. Plan of Care: We will initiate comfort care today and plan to transfer patient to a private room. Simultaneously we will work with care management to work on a home with hospice discharge plan and we will require a home hospice agency that is able to provide home suction with a portable suction device. Patient has been shares that they have been using the [facility] home health group up until now and they are pleased with the service that he received from this agency. He would like to know if the [facility] group has a hospice arm that would be able to provide ongoing care in their home for patient. Care management will look into this. We will also need to find out if [facility] is able to provide in-home portable suction for her intermittent suction from the NG tube. I advised patient and her that we will coordinate her discharge home including transportation once plans with hospice have been confirmed. This patient should not be discharged home without a confirmed meeting time with hospice nursing at the house when patient arrives. There should not be a lag between when she arrives at home and hospice is initiated given the overall complexity of her needs and the requirement for some of her home DME including suction to be set up prior to her arrival. 7. Secretions at EOL/management: I discussed with family that as the level of consciousness decreases in the dying process, patients lose their ability to swallow and clear oral secretions. As air moves over the secretions, which have pooled in the oropharynx and bronchi, the resulting turbulence produces noisy v entilation with each breath, described as gurgling or rattling noises. While there is no evidence that patients find this rattle disturbing, evidence from bereaved surveys suggests the noises can be disturbing to the patients visitors and caregivers who may fear that the patient is choking to . We recommend a combination of Non-Pharmacological and Pharmacological Treatments: * 1. Position the patient on their side or in a semi-prone position to facilitate postural drainage * 2. Communication with family and caregivers to reaffirm commitment to their loves ones care, reduce anxiety and fears. * 3. Gentle oropharyngeal suctioning is used although this can be ineffective when fluids are beyond the reach of the catheter. Avoid deep suctioning as it is very irritating. Note that frequent suctioning is disturbing to both the patient and the visitors. * 4. Reduction of fluid intake. * 5. Consider a 1-2 min Trendelenburg positioning, to move fluids up into the oropharynx for easier removal BUT note that ASPIRATION RISK WILL INCREASE. * 6. Muscarinic receptor blockers (anti-cholinergic drugs) are most often used: glycopyrrolate (Robinul), scopolamine (Transderm Scop), hyoscyamine and atropine. Of these, I prefer to using glycopyrrolate as first line treatment, because it is a quaternary amine (therefore does not cross the blood-brain barrier) which reduces the potential anti cholinergic agent associated RADIO INTELLIGENCE OPERATOR toxicity (sedation, delirium). * 7. Glycopyrrolate has five times the anti-secretory potency compared to atropine, while scopolamine dries/thickens secretions and causes dry mouth, which may be more distressing to the patient and detract from comfort. 8. We discussed the option of initiating an inpatient hospice evaluation. I reviewed with patient and her that the inpatient hospice criteria for general inpatient hospice are extremely strict and at this time she does not meet Medicare criteria due to an absence of refractory symptoms were high complexity of care that cannot be given in any other setting. If there are no hospice agencies that can provide intermittent home suction with a portable suction machine, then that will change the elements of what criteria she may meet for inpatient hospice since the ongoing suction is needed to assure comfort at this stage. Time Involved in Meeting: I spent 105 minutes overall addressing this case: 10 in medical data review/discussion with referring provider(s) and/or preparation for the visit 10 in direct interaction with the patient 60 advance Care Planning/Goals of Care discussions as detailed above in note (must be >16min) 10 in subsequent review and synthesis of assessment and plan 15 in communicating with other providers regarding the patient's case: nursing, primary team, care management MDM HIGH complexity Hospice and EOL discussions as noted above Thank you for allowing us to participate in the ongoing care of this patient. Please page with any additional concerns. Juanita Miller DNP Director, Palliative Medicine
[2024-12-19 13:18] VITALS: PULSE 137; RESP 23
--- NOTE | 2024-12-19 13:38 | Cardiology Progress Note ---
Date of Service December 19, 2024 Assessment & Plan (1) Atrial fibrillation with RVR: Plan 1. Atrial fibrillation: She continues to have extended periods of atrial fibrillation and high ventricular rates. Brief episodes of sinus rhythm. Efforts to control atrial fibrillation are hampered by her inability to take oral medications. Fortunately not overtly symptomatic by the atrial fibrillation or associated high rates. Blood pressure has been stable. It appears that the patient is being transition to comfort measures. Amiodarone infusion or diltiazem infusion could be entertained if she is symptomatic from the atrial fibrillation. No current indication for anticoagulation given her other comorbidities. 2. Small bowel obstruction: Undergoing decompression. Given the move towards comfort care and home hospice, cardiology will sign off at this time. Please feel free to call with additional questions or concerns. Admission and Anticipated Discharge Date Admission Date: December 17, 2024 Subjective This evening the patient reported being tired. No specific abdominal complaints. Some sore throat. Perhaps some mild breathing difficulty possibly associated with the sore throat. No chest pain. No sense of palpitation. Review of Systems Review of Systems: Per HPI. Physical Exam Physical Exam: She was alert and answer questions appropriately. HEENT: Sclerae are anicteric. Pupils are equal and reactive to light and accommodation. Extraocular movements were intact. NG tube in place Neuro: Cranial nerves intact Lungs: Lungs are clear to auscultation bilaterally. There are no rales wheezes or rhonchi. She has normal respiratory effort without use of accessory muscles. There is normal pulmonary excursion. Cardiac: The rhythm was irregular and rapid. No murmurs. Extremities: Patient has bilateral radial pulses that are equal in intensity. There is no evidence cyanosis or clubbing Skin: There are no rashes noted on examination today. Results & Data Vital Signs (Past 12 Hours) Vital Signs Temp Pulse Pulse Resp BP BP Pulse Ox 12/19/24 12:06 137 H 23 12/19/24 10:00 141 H 35 H 12/19/24 08:00 138 H 21 93 12/19/24 08:00 36.9 C 12/19/24 08:00 12/19/24 07:21 136/73 12/19/24 07:00 150 H 19 12/19/24 03:41 36.5 C 114 H 19 111/62 92 O2 Del Method O2 Flow Rate 12/19/24 12:06 12/19/24 10:00 12/19/24 08:00 Nasal Cannula 2 12/19/24 08:00 12/19/24 08:00 Nasal Cannula 2 12/19/24 07:21 12/19/24 07:00 12/19/24 03:41 Nasal Cannula 2 Laboratory Results Abnormal Lab Results 12/18/24 12/18/24 12/19/24 16:08 23:56 06:00 POC Glucose 182 H 168 H 186 H PG Care Time/CCT Total # of Minutes Spent Total Time Spent with Patient: Total time spent is greater than 50% in coordination of care (as documented) at patient's floor/unit and/or counseling patient: Coding Level of Care Code 64118 SUB INP/OBS CARE 2/35MIN Diagnoses Atrial fibrillation with RVR I48.91
--- NOTE | 2024-12-19 13:53 | Electrocardiogram Report ---
Test Reason : Blood Pressure : */* mmHG Vent. Rate : 158 BPM Atrial Rate : * BPM P-R Int : * ms QRS Dur : 78 ms QT Int : 302 ms P-R-T Axes : * -2 72 degrees QTcB Int : 489 ms Atrial fibrillation with rapid ventricular response Nonspecific ST abnormality Abnormal ECG When compared with ECG of 17-Dec-2024 09:38, Atrial fibrillation has replaced Sinus rhythm Nonspecific T wave abnormality now evident in Inferior leads Confirmed by Roverto Taylor ([id number]) on 12/19/2024 1:52:59 PM Referred By: REFERRED SELF Confirmed By: Roverto Taylor
[2024-12-19] MEDS: MoRPHine SULFATE 2 MG/ML CARP IV PRN (14:48)
--- NOTE | 2024-12-19 22:24 | Hospitalist Progress Note ---
Date of Service December 19, 2024 Assessment & Plan (1) SBO (small bowel obstruction): Plan: CT abd/pelvis today confirms SBO. This is the cause of her presenting intractable vomiting. Suspect SBO is due to carcinomatosis/omental implants; adhesions possible from prior surgery but less likely as the primary cause. She has pain in addition to ongoing nausea/emesis. Pt's states she would never want surgery. Thus, will place NG tube as this will stop the N/V and will help her be more comfortable. agreeable to NG tube placement. Patient transitioned to comfort measures on 12/19 reviewed chart ad labs (2) Metastatic colon cancer to liver: Plan: known dx, follows with Dr Rubio at [facility] diagnosed 08/2023 stage 4 with extensive mets including carcinomatosis she has had progression of her disease despite aggressive Rx over the last 12 months she now has SBO as noted in #1 pt's reports that he & Ms Javier spoke last week and they were discu ssing hospice wants to proceed with hospice in light of current status will involve palliative care formally; appreciate input from palliative care (3) Carcinomatosis: Plan: 2nd to colon ca extensive as noted on CT abd/pelvis probable cause of SBO with pain due to such change morphine to dilaudid prn (4) Acute hypoxic respiratory failure: Plan: 2nd to probable aspiration event overnight recent fluA infection -- thus can't rule out bacterial superinfection continue NC O2 (5) Aspiration pneumonitis due to regurgitated gastric secretions: Plan: patient had emesis overnight which was followed by desaturation/hypoxia now with NC O2 requirement given transition to hospice / comfort care soon will not initiate abx and simply focus on comfort (6) CHIN (acute kidney injury): Plan: baseline Cr about 0.9 now 1.3 she appears volume contracted remains on IV fluids (7) Influenza A: Plan: initial dx 12/11/24 cont droplet precautions completed 5-day course of Tamiflu during prior hospitalization (8) Atrial fibrillation with RVR: Plan: developed rapid a.fib in the ER while awaiting admission now on amiodarone infusion to maintain NSR continue for now also receiving lovenox SC therapeutic dosing but plan to stop this once ready to transition to full comfort care/hospice appreciate cardiology consult/recs (9) Unstageable pressure ulcer of sacral region: Plan: b/l sacral region appreciate wound care recs pain meds prn (10) Colostomy in place: Plan: now with SBO as in #1 above (11) DM type 2 (diabetes mellitus, type 2): Plan: cont lantus-novolog for now, but plan to stop these once patient is full comfort/hospice (12) Hyponatremia: Plan: acute - 2nd volume depletion also has chronic hyponatremia - due to SIADH from cancer? (13) Hypokalemia: Plan: gave four 10meq KCL riders this am (14) Right leg DVT: Plan: as seen on doppler study lovenox 1mg/kg BID for now but plan to stop such once full comfort care initiated / hospice Plan care discussed with palliative care via [place] correspondence Admission and Anticipated Discharge Date Admission Date: December 17, 2024 Subjective Patient reports she would like to go home on hospice. Physical Exam Physical Exam: Patient lying in bed. NAD Results & Data Results & Data Vital Signs (Past 12 Hours) Vital Signs Pulse Resp 12/19/24 12:06 137 H 23 PG Care Time/CCT Total # of Minutes Spent Total Time Spent with Patient: Total time spent is greater than 50% in coordination of care (as documented) at patient's floor/unit and/or counseling patient: Coding Level of Care Code 05928 SUB INP/OBS CARE 3/50MIN Diagnoses SBO (small bowel obstruction) K56.609 Metastatic colon cancer to liver C18.9; C78.7 Carcinomatosis C80.0 Acute hypoxic respiratory failure J96.01 Aspiration pneumonitis due to regurgitated gastric secretions J69.0 CHIN (acute kidney injury) N17.9 Influenza A J10.1 Atrial fibrillation with RVR I48.91 Unstageable pressure ulcer of sacral region L89.[address] Z93.3 DM type 2 (diabetes mellitus, type 2) E11.9 Hyponatremia E87.1 Hypokalemia E87.6 Right leg DVT I82.401 Time Spent (min) 50
[2024-12-20] MEDS: LORazepam 2 MG/1 ML VIAL IV PRN (00:20)
[2024-12-20] MEDS: MoRPHine SULFATE 10 MG/0.5 ML UDP PO PRN (09:48)
[2024-12-20] MEDS: LORazepam 0.5 MG TAB SL PRN (11:11)
[2024-12-20] MEDS: GLYCOPYRROLATE 0.2 MG/ML VIAL IV PRN (11:22)
--- NOTE | 2024-12-20 22:21 | Hospitalist Progress Note ---
Date of Service December 20, 2024 Assessment & Plan (1) SBO (small bowel obstruction): Plan: CT abd/pelvis today confirms SBO. This is the cause of her presenting intractable vomiting. Suspect SBO is due to carcinomatosis/omental implants; adhesions possible from prior surgery but less likely as the primary cause. She has pain in addition to ongoing nausea/emesis. Pt's states she would never want surgery. Thus, will place NG tube as this will stop the N/V and will help her be more comfortable. NG tube removed by patient, will not reinsert Patient transitioned to comfort measures on 12/19 reviewed chart and labs. possible discharge on 12/21 (2) Metastatic colon cancer to liver: Plan: known dx, follows with Dr Rubio at [facility] diagnosed 08/2023 stage 4 with extensive mets including carcinomatosis she has had progression of her disease despite aggressive Rx over the last 12 months she now has SBO as noted in #1 pt's reports that he & Ms Javier spoke last week and they were discussing hospice wants to proceed with hospice in light of current status will involve palliative care formally; appreciate input from palliative care (3) Carcinomatosis: Plan: 2nd to colon ca extensive as noted on CT abd/pelvis probable cause of SBO with pain due to such change morphine to dilaudid prn (4) Acute hypoxic respiratory failure: Plan: 2nd to probable aspiration event overnight recent fluA infection -- thus can't rule out bacterial superinfection continue NC O2 (5) Aspiration pneumonitis due to regurgitated gastric secretions: Plan: patient had emesis overnight which was followed by desaturation/hypoxia now with NC O2 requirement given transition to hospice / comfort care soon will not initiate abx and simply focus on comfort (6) CHIN (acute kidney injury): Plan: baseline Cr about 0.9 now 1.3 she appears volume contracted remains on IV fluids (7) Influenza A: Plan: initial dx 12/11/24 cont droplet precautions completed 5-day course of Tamiflu during prior hospitalization (8) Atrial fibrillation with RVR: Plan: developed rapid a.fib in the ER while awaiting admission now on amiodarone infusion to maintain NSR continue for now also receiving lovenox SC therapeutic dosing but plan to stop this once ready to transition to full comfort care/hospice appreciate cardiology consult/recs (9) Unstageable pressure ulcer of sacral region: Plan: b/l sacral region appreciate wound care recs pain meds prn (10) Colostomy in place: Plan: now with SBO as in #1 above (11) DM type 2 (diabetes mellitus, type 2): Plan: cont lantus-novolog for now, but plan to stop these once patient is full comfort/hospice (12) Hyponatremia: Plan: acute - 2nd volume depletion also has chronic hyponatremia - due to SIADH from cancer? (13) Hypokalemia: Plan: gave four 10meq KCL riders this am (14) Right leg DVT: Plan: as seen on doppler study lovenox 1mg/kg BID for now but plan to stop such once full comfort care initiated / hospice Plan care discussed with palliative care via [place] correspondence Admission and Anticipated Discharge Date Admission Date: December 17, 2024 Subjective Patient reports no new complaints. Physical Exam Physical Exam: Patient lying in bed. NAD. appears comfortable. PG Care Time/CCT Total # of Minutes Spent Total Time Spent with Patient: Total time spent is greater than 50% in coordination of care (as documented) at patient's floor/unit and/or counseling patient: Coding Level of Care Code 09303 SUB INP/OBS CARE 2/35MIN Diagnoses SBO (small bowel obstruction) K56.609 Metastatic colon cancer to liver C18.9; C78.7 Carcinomatosis C80.0 Acute hypoxic respiratory failure J96.01 Aspiration pneumonitis due to regurgitated gastric secretions J69.0 CHIN (acute kidney injury) N17.9 Influenza A J10.1 Atrial fibrillation with RVR I48.91 Unstageable pressure ulcer of sacral region L89.[address] Z93.3 DM type 2 (diabetes mellitus, type 2) E11.9 Hyponatremia E87.1 Hypokalemia E87.6 Right leg DVT I82.401
[2024-12-21] MEDS: CHECK SCOPOLAMINE PATCH PLACEMENT SCH (17:35)
[2024-12-21] MEDS: SCOPOLAMINE 1 MG/72 HR TDSY PATCH TD SCH (17:35)
--- NOTE | 2024-12-21 20:39 | Death Pronouncement Note ---
Date of Service December 21, 2024 Pronouncement Note Admission Date December 17, 2024 Date and Time of Date of : 12/21/24 Time of : 20:33 Preliminary Cause of (1) Metastatic colon cancer to liver: (2) Acute hypoxic respiratory failure: (3) SBO (small bowel obstruction): Summary I was called to pronounce the of Shreya Herrera ( 1960) by Salma Hurst RN on 12/21/2024 Upon entering the room, patient was found to be in a terminal state. They were unresponsive to, and did not withdraw from, verbal or tactile stimuli such as pressing of nail bed and sternal rub. They were unresponsive to corneal, pupillary, and oculocephalic reflexes. On cardiopulmonary exam, they were found to be without detectable carotid pulses, and without spontaneous heart tones or respirations. Time of was pronounced by me on 12/21/2024 on 20:33 Attending physician was notified. Next of kin was notified by Salma Hurst RN. Additional Data Attending physician: Niels Thompson Resident Activity Tracking Resident Involvement: Resident Care Provided Care Provided: Adult Hospital Medicine
--- NOTE | 2024-12-21 22:47 | Discharge Summary ---
Discharge Summary Date of Service December 21, 2024 Principal Dx & Hospital Course #1 = Principal Diagnosis (1) SBO (small bowel obstruction): CT abd/pelvis today confirms SBO. This is the cause of her presenting intractable vomiting. Suspect SBO is due to carcinomatosis/omental implants; adhesions possible from prior surgery but less likely as the primary cause. She has pain in addition to ongoing nausea/emesis. Pt's states she would never want surgery. Thus, will place NG tube as this will stop the N/V and will help her be more comfortable. NG tube removed by patient, will not reinsert Patient transitioned to comfort measures on 12/19 reviewed chart and labs. Consulted palliative care. Patient transitioned to NUCLEAR MEDICINE TECH. Patient . Date of : 12/21/24 Time of : 20:33 Plan below was prior to transition to NUCLEAR MEDICINE TECH (2) Metastatic colon cancer to liver: known dx, follows with Dr Rubio at [facility] diagnosed 08/2023 stage 4 with extensive mets including carcinomatosis she has had progression of her disease despite aggressive Rx over the last 12 months she now has SBO as noted in #1 pt's reports that he & Ms Javier spoke last week and they were discussing hospice wants to proceed with hospice in light of current status (3) Carcinomatosis: 2nd to colon ca extensive as noted on CT abd/pelvis probable cause of SBO comfort meds ordered (4) Acute hypoxic respiratory failure: 2nd to probable aspiration event overnight recent fluA infection -- thus can't rule out bacterial superinfection continue NC O2 (5) Aspiration pneumonitis due to regurgitated gastric secretions: patient had emesis overnight which was followed by desaturation/hypoxia now with NC O2 requirement given transition to hospice / comfort care soon will not initiate abx and simply focus on comfort (6) CHIN (acute kidney injury): baseline Cr about 0.9 now 1.3 she appears volume contracted remains on IV fluids (7) Influenza A: initial dx 12/11/24 cont droplet precautions completed 5-day course of Tamiflu during prior hospitalization (8) Atrial fibrillation with RVR: developed rapid a.fib in the ER while awaiting admission now on amiodarone infusion to maintain NSR continue for now also receiving lovenox SC therapeutic dosing but plan to stop this once ready to transition to full comfort care/hospice appreciate cardiology consult/recs (9) Unstageable pressure ulcer of sacral region: b/l sacral region appreciate wound care recs pain meds prn (10) Colostomy in place: now with SBO as in #1 above (11) DM type 2 (diabetes mellitus, type 2): cont lantus-novolog for now, but plan to stop these once patient is full comfort/hospice (12) Hyponatremia: acute - 2nd volume depletion also has chronic hyponatremia - due to SIADH from cancer? (13) Hypokalemia: gave four 10meq KCL riders this am (14) Right leg DVT: as seen on doppler study lovenox 1mg/kg BID for now but plan to stop such once full comfort care initiated / hospice Plan care discussed with palliative care via [place] correspondence Admission HPI Per Admitting Provider Shreya is a 64-year-old female PMH of diabetes mellitus, colon cancer with mets, pelvic cancer, and MADHAV. She presented via EMS on 12/17 for pain due to a pressure ulcer at her coccyx. Patient's (Dallin) is at bedside and provides history, as patient reports difficulty talking. reports that the patient has not been able to eat or drink over the past few days, and has been feeling very weak; recent [place] hospitalization 12/11 - 12/13 for influenza A. Whenever patient tries to eat or take her pills, she throws them back up. She has been tolerating fluids such as water and juice. Patient follows with the [facility] for her metastatic colon cancer; she was previously on oral chemo, but got sick after taking 10 of the 14-day trial. reports they plan to restart chemo next week; pump instead of pills. Patient did not take her regular morning medicine this morning; she received new medications upon discharge, but has been unable to keep them down. The only thing she has managed to keep down on her Protonix and nausea medication (Zofran). She was transfused 1 unit PRBCs last visit. denies any recent falls at home, or injuries. Patient is mainly wheelchair bound at this point, but did ambulate with a walker twice this week. Their main concern at this time is the bleeding sore on her coccyx. has been applying a triple antibiotic cream and dressing it regularly, but reports her skin is very loose and continues to tear due to significant weight loss. No purulent drainage from the ulcer. The pain was so significant, that it woke her from sleep at 2 AM this morning, and he decided to come to the hospital. Patient rates her pain 8/10 at present, and describes as a constant pain. She did take tramadol last night around 11 PM, which helped a little bit. Both patient and patient's have not been sleeping well over the past 3 nights. denies any fevers at home, has been checking temperature regularly, and has not gotten above 97.1 F. Patient does have a history of a blood clot (DVT) along time ago; despite swelling in her legs, reports no injuries or erythema, and she reports good compliance with her Eliquis. Patient is colostomy status, and reports minimal stool output due to not eating. No smoking, tobacco use, or recent alcohol use. Patient is hypertensive 144/80 and in sinus tachycardia at 109 bpm at admission; vitals otherwise stable. ED course: NSS 1000 mL IV ROS obtained from both patient and patient's : Patient endorses coccyx pain, unstable on feet, lightheadedness when standing, [place], nausea and vomiting with food and pills, swelling in the legs, and decrea sed appetite. Patient denies fever, chills, night-sweats, chest pain, pleuritic CP, SOB at rest, abdominal pain, or diarrhea. Discharge Exam Constitutional seen prior to her Patient lying in bed comfortable. not using accessory muscles to breath Discharge Plan Discharge Items Patient Disposition: Other Date/Time: 12/21/24 20:33 Hospital Stay Data Consultations 12/17/24 08:03 ED Decision to Admit Stat 12/17/24 10:13 Consult Cardiology Routine 12/18/24 18:21 Consult Palliative Care Routine Diagnostic Imagining Performed 12/17/24 17:25 US venous doppler LE RT Stat 12/18/24 09:23 CT abd pelvis wo con Urgent Total Time Total Time Spent Total Time Spent (In Minutes): 32 Coding Level of Care Code 17648 INP/OBS DISCH >30 MIN Diagnoses SBO (small bowel obstruction) K56.609 Metastatic colon cancer to liver C18.9; C78.7 Carcinomatosis C80.0 Acute hypoxic respiratory failure J96.01 Aspiration pneumonitis due to regurgitated gastric secretions J69.0 CHIN (acute kidney injury) N17.9 Influenza A J10.1 Atrial fibrillation with RVR I48.91 Unstageable pressure ulcer of sacral region L89.[address] Z93.3 DM type 2 (diabetes mellitus, type 2) E11.9 Hyponatremia E87.1 Hypokalemia E87.6 Right leg DVT I82.401
--- NOTE | 2024-12-22 13:48 | Coding Query ---
PRESSURE ULCER DOCUMENTATION To promote full compliance with coding requirements relating to patient care, physician participation is requested in all cases of certified medical records coder uncertainty. Please assist us with the question(s) below: Please specify the known or suspected type by placing an "X" within the parenthesis to assure correct diagnosis/coding due to conflicting documentation in the H&P of Stage III pressure ulcer of sacral region, and documentation other areas of the record of Unstageable pressure ulcer of sacral region (x). A pressure ulcer of the Sacral region If possible, please check the box that provides the specific stage of the pressure ulcer ( ) Stage I ( ) Stage II (x ) Stage III ( ) Stage IV ( ) Unstageable Thank you Elisa Ornelas [facility]ENTER[facility]
== END 2024-12-21 23:08 | disposition expired | DRG 374 ==
LOC: ED 04:12 → EDINP 08:47 → SUATTDRO 08:47 → 1E 10:13 → 3E 12-19 18:10
DX: I48.91 Unspecified atrial fibrillation; C78.7 Secondary malignant neoplasm of liver and intrahepatic bile duct; E11.9 Type 2 diabetes mellitus without complications; L89.153 Pressure ulcer of sacral region, stage 3; E87.6 Hypokalemia; E86.0 Dehydration; I10 Essential (primary) hypertension; Z86.718 Personal history of other venous thrombosis and embolism; Z79.84 Long term (current) use of oral hypoglycemic drugs; J96.01 Acute respiratory failure with hypoxia; Z88.3 Allergy status to other anti-infective agents; Z66 Do not resuscitate; C78.6 Secondary malignant neoplasm of retroperitoneum and peritoneum; Z79.899 Other long term (current) drug therapy; J69.0 Pneumonitis due to inhalation of food and vomit; E87.1 Hypo-osmolality and hyponatremia; K56.50 Intestinal adhesions [bands], unspecified as to partial versus complete obstruction; Z91.041 Radiographic dye allergy status; Z93.3 Colostomy status; Z88.0 Allergy status to penicillin; G89.3 Neoplasm related pain (acute) (chronic); Z79.01 Long term (current) use of anticoagulants; N17.9 Acute kidney failure, unspecified; Z82.49 Family history of ischemic heart disease and other diseases of the circulatory system; E22.2 Syndrome of inappropriate secretion of antidiuretic hormone; Z51.5 Encounter for palliative care; I82.411 Acute embolism and thrombosis of right femoral vein; Z87.09 Personal history of other diseases of the respiratory system; Z83.3 Family history of diabetes mellitus; C18.9 Malignant neoplasm of colon, unspecified